=== PATIENT | male | born 1955 | race Caucasian/White ===

== ENCOUNTER 2020-05-16 13:36 | Inpatient (IN) | payer MEDICARE ==
[~2020-05-16] VITALS: Ht 167 cm; Wt 95.8 kg
[~2020-05-16 13:36] MED LIST: MECL25TA56 PO
[2020-05-16] MEDS ORDERED: NS IV 1000 ML 1,000 ML ONE (13:49)
[2020-05-16 14:00] LABS: BASOPHILS % (AUTO) 0 % (0-10); EOSINOPHILS % (AUTO) 0 % (0-10); HEMATOCRIT 53 % (40-54); HEMOGLOBIN 18.2 g/dL (13.3-17.7); LYMPHOCYTES # (AUTO) 2.7 10^3/uL (1.0-4.0); LYMPHOCYTES % (AUTO) 37 % (12-44); MEAN CORPUSCULAR HEMOGLOBIN 28 pg (25-34); MEAN CORPUSCULAR HGB CONC 35 g/dL (32-36); MEAN CORPUSCULAR VOLUME 81 fL (80-99); MEAN PLATELET VOLUME 10.4 fL (9.0-12.2); MONOCYTES # (AUTO) 0.5 10^3/uL (0.0-1.0); MONOCYTES % (AUTO) 7 % (0-12); NEUTROPHILS % (AUTO) 55 % (42-75); PLATELET COUNT 205 10^3/uL (130-400); WHITE BLOOD COUNT 7.2 10^3/uL (4.3-11.0)
[2020-05-16] MEDS ORDERED: ASPIRIN 325 MG (5 GR) TABLET PO ONE (14:00)
[2020-05-16] MEDS ORDERED: NS IV 1000 ML 1,000 ML IV SCH ×2 (14:00→14:30)
[2020-05-16] MEDS ORDERED: PROMETHAZINE/ CODEINE SYRUP 5 ML UDC PO ONE (14:00)
[2020-05-16] MEDS ORDERED: lisINopril 10 MG (PRINIVIL) TABLET PO ONE (14:00)
[2020-05-16 14:14] LABS: ALBUMIN 3.8 GM/DL (3.2-4.5); CHLORIDE 97 MMOL/L (98-107); POTASSIUM 3.9 MMOL/L (3.6-5.0); SODIUM 136 MMOL/L (135-145)
[2020-05-16 14:15] LABS: CALCIUM 8.9 MG/DL (8.5-10.1)
[2020-05-16 14:16] LABS: GLUCOSE 285 MG/DL (70-105)
[2020-05-16 14:17] LABS: TOTAL PROTEIN 7.5 GM/DL (6.4-8.2)
[2020-05-16 14:18] LABS: CARBON DIOXIDE 20 MMOL/L (21-32)
--- NOTE | 2020-05-16 14:18 | ED Respiratory ---
General Chief Complaint: Respiratory Problems Stated Complaint: SOB Nursing Triage Note: ARRIVED VIA EMS FROM HOME WITH SOA AND COUGH X3 DAYS. EMS REPORTS PULSE OX IN THE 80'S AT HOME ROOM AIR. History of Present Illness Date Seen by Provider: May 16, 2020 Time Seen by Provider: 13:40 Initial Comments 64-year-old male presents for cough and shortness of air that is been present for 3 to 4 days. He has not received the Covid vaccine. He does not know of any known exposure to Covid. He did not get an influenza vaccine this year either. He does not have a primary care doctor or seek medical care regularly. He denies any medications. He did try Tylenol last evening with no improvement in his symptoms. He lives with his sister, no one else has similar symptoms. Denies tobacco use. Timing/Duration: getting worse Severity: moderate Prior Episodes/Possible Cause: no prior episodes Associated Symptoms: No chest pain/soreness; cough; No dizziness, No earache, No facial pain, No fever/chills, No headache, No lightheadedness; muscle aches, nasal congestion, nasal drainage, shortness of breath; No sinus infection, No sore throat, No wheezing Allergies and Home Medications Allergies Coded Allergies: NKANo Known Allergies (Unverified Allergy, Mild, 11/05/08) Home Medications Meclizine Hcl 25 Mg Tablet, 1 EACH PO QID PRN Prescribed by: KARYN ORTIZ on 05/22/10 1133 Patient Home Medication List Home Medication List Reviewed: Yes Review of Systems Review of Systems Constitutional: no symptoms reported, see HPI EENTM: see HPI, nose congestion Respiratory: see HPI, cough (non productive), dyspnea on exertion, short of breath; No wheezing Cardiovascular: no symptoms reported, see HPI; No chest pain Gastrointestinal: see HPI; No abdominal pain, No constipation, No diarrhea; loss of appetite; No vomiting Genitourinary: no symptoms reported, see HPI Musculoskeletal: no symptoms reported, see HPI Skin: no symptoms reported, see HPI All Other Systems Reviewed Negative Unless Noted: Yes Past Lmwybhr-Ryakle-Mhaich Hx Past Med/Social Hx: Reviewed Nursing Past Med/Soc Hx Patient Social History Alcohol Use: Denies Use Smoking Status: Never a Smoker Recent Infectious Disease Expo: No Recent Hopitalizations: No Seasonal Allergies Seasonal Allergies: No Past Medical History Surgeries: Yes (hernia repair) Respiratory: No Cardiac: Yes Hypertension Neurological: No Genitourinary: No Gastrointestinal: No Musculoskeletal: No Endocrine: No HEENT: No Cancer: No Psychosocial: No Physical Exam Vital Signs - First Documented 05/16/20 13:51 Temp 36.5 Pulse 104 Resp 18 B/P (MAP) 179/106 (130) Pulse Ox 82 O2 Delivery Nasal Cannula O2 Flow Rate 2.00 Capillary Refill : Less Than 3 Seconds Height: '" Weight: lbs. oz. kg; 27.00 BMI Method: General Appearance: WD/WN, no apparent distress Eyes: Bilateral Eye Normal Inspection, Bilateral Eye PERRL, Bilateral Eye EOMI HEENT: PERRL/EOMI, normal ENT inspection, TMs normal, pharynx normal, other (Oral mucosa pink but dry. ) Neck: non-tender, full range of motion, supple, normal inspection Respiratory: chest non-tender, lungs clear, decreased breath sounds Cardiovascular: normal peripheral pulses, regular rate, rhythm, tachycardia Gastrointestinal: normal bowel sounds, non tender, soft Extremities: normal range of motion, non-tender, normal inspection, other (clubbing to fingers) Neurologic/Psychiatric: no motor/sensory deficits, alert, normal mood/affect, o riented x 3 Skin: normal color, warm/dry Focused Exam Lactate Level 05/16/20 13:45: Lactic Acid Level 3.47*H Lactic Acid Level Laboratory Tests Test 05/16/20 13:45 Lactic Acid Level 3.47 MMOL/L (0.50-2.00) *H Progress/Results/Core Measures Suspected Sepsis Recent Fever Within 48 Hours: No Infection Criteria Present: Suspected New Infection New/Unexplained Altered Menta: No Sepsis Screen: No Definite Risk SIRS Temperature: Pulse: 104 Respiratory Rate: 18 Laboratory Tests 05/16/20 13:45: White Blood Count 7.2 Blood Pressure 179 /106 Mean: 130 05/16/20 13:45: Lactic Acid Level 3.47*H Laboratory Tests 05/16/20 13:45: Creatinine 1.03, INR Comment 0.9, Platelet Count 205, Total Bilirubin 1.0 Results/Orders Lab Results Laboratory Tests Test 05/16/20 13:45 Range/Units White Blood Count 7.2 4.3-11.0 10^3/uL Red Blood Count 6.53 H 4.30-5.52 10^6/uL Hemoglobin 18.2 H 13.3-17.7 g/dL Hematocrit 53 40-54 % Mean Corpuscular Volume 81 80-99 fL Mean Corpuscular Hemoglobin 28 25-34 pg Mean Corpuscular Hemoglobin Concent 35 32-36 g/dL Red Cell Distribution Width 13.2 10.0-14.5 % Platelet Count 205 130-400 10^3/uL Mean Platelet Volume 10.4 9.0-12.2 fL Immature Granulocyte % (Auto) 1 % Neutrophils (%) (Auto) 55 42-75 % Lymphocytes (%) (Auto) 37 12-44 % Monocytes (%) (Auto) 7 0-12 % Eosinophils (%) (Auto) 0 0-10 % Basophils (%) (Auto) 0 0-10 % Neutrophils # (Auto) 4.0 1.8-7.8 10^3/uL Lymphocytes # (Auto) 2.7 1.0-4.0 10^3/uL Monocytes # (Auto) 0.5 0.0-1.0 10^3/uL Eosinophils # (Auto) 0.0 0.0-0.3 10^3/uL Basophils # (Auto) 0.0 0.0-0.1 10^3/uL Immature Granulocyte # (Auto) 0.0 0.0-0.1 10^3/uL Prothrombin Time 12.7 12.2-14.7 SEC INR Comment 0.9 0.8-1.4 Activated Partial Thromboplast Time 27 24-35 SEC D-Dimer 0.68 H 0.00-0.49 UG/ML Sodium Level 136 135-145 MMOL/L Potassium Level 3.9 3.6-5.0 MMOL/L Chloride Level 97 L 98-107 MMOL/L Carbon Dioxide Level 20 L 21-32 MMOL/L Anion Gap 19 H 5-14 MMOL/L Blood Urea Nitrogen 14 7-18 MG/DL Creatinine 1.03 0.60-1.30 MG/DL Estimat Glomerular Filtration Rate > 60 BUN/Creatinine Ratio 14 Glucose Level 285 H 70-105 MG/DL Lactic Acid Level 3.47 *H 0.50-2.00 MMOL/L Calcium Level 8.9 8.5-10.1 MG/DL Corrected Calcium 9.1 8.5-10.1 MG/DL Total Bilirubin 1.0 0.1-1.0 MG/DL Aspartate Amino Transf (AST/SGOT) 34 5-34 U/L Alanine Aminotransferase (ALT/SGPT) 42 0-55 U/L Alkaline Phosphatase 94 40-136 U/L Lactate Dehydrogenase 308 H 125-220 U/L C-Reactive Protein High Sensitivity 12.22 H 0.00-0.50 MG/DL Total Protein 7.5 6.4-8.2 GM/DL Albumin 3.8 3.2-4.5 GM/DL Procalcitonin 0.26 H <0.10 NG/ML Coronavirus 2019 (TASHA) Positive H Negative Micro Results Microbiology 05/16/20 Influenza Types A,B Antigen (JAYLON) - Final, Complete My Orders Orders - THIEN JEFFERS Ns Iv 1000 Ml (Sodium Chloride 0.9%) (05/16/20 13:49) Ed Iv/Invasive Line Start (05/16/20 13:54) Ns Iv 1000 Ml (Sodium Chloride 0.9%) (05/16/20 14:00) Promethazine/ Codeine Syrup (Phenergan W (05/16/20 14:00) Aspirin Tablet (Aspirin Tablet) (05/16/20 14:00) Lisinopril Tablet (Zestril Tablet) (05/16/20 14:00) Ed Iv/Invasive Line Start (05/16/20 14:20) Ns Iv 1000 Ml (Sodium Chloride 0.9%) (05/16/20 14:30) Dexamethasone Injection (Decadron Inje (05/17/20 09:00) Fibrin Degradation Products (05/16/20 14:42) Ceftriaxone For Iv Use (Rocephin For I (05/16/20 15:00) Azithromycin Injection (Zithromax Inject (05/16/20 15:00) Medications Given in ED Current Medications Medications Dose Ordered Sig/Mariam Route Start Time Stop Time Status Last Admin Dose Admin Aspirin 325 mg ONCE ONCE PO 05/16/20 14:00 05/16/20 14:01 DC 05/16/20 14:05 325 MG Lisinopril 10 mg ONCE ONCE PO 05/16/20 14:00 05/16/20 14:01 DC 05/16/20 14:05 10 MG Promethazine HCl/ Codeine 5 ml ONCE ONCE PO 05/16/20 14:00 05/16/20 14:01 DC 05/16/20 14:02 5 ML Vital Signs/I&O 05/16/20 05/16/20 13:51 13:51 Temp 36.5 Pulse 104 Resp 18 B/P (MAP) 179/106 (130) Pulse Ox 82 82 O2 Delivery Nasal Cannula Room Air O2 Flow Rate 2.00 Capillary Refill : Less Than 3 Seconds Blood Pressure Mean: 130 Progress Note : Time: 13:40 Progress Note Patient seen and evaluated, will give normal saline 1 L per IV, labs and chest x-ray. When transferring from cot to bed, SaO2 down to 86 to 88%, quickly recovered to 92 to 94% with O2 at 4 L. 1400 will give aspirin 325 mg orally, Phenergan with codeine for cough 5 mL. Lisinopril 10 mg orally for hypertension. SaO2 94% at 4 L, decreased to 2 L and maintaining. 1430 no further coughing. Covid test positive. Patient notified. He is notifying all contacts, to quarantine. [address] Darby agreed with plans for admission. Will obtain CT of chest without contrast based on chest x-ray and polycythemia. Will cover with azithromycin and Rocephin. Hgb A1c based on elevated glucose and no known history of DM. 1545 no complaints, SaO2 94% on 2L per MI. To CT and then taken to [address] [place] [address]. Diagnostic Imaging Diagonstic Imaging: Xray Plain Films/CT/US/NM/MRI: chest Comments NAME: FRANKI GREENFIEDL [facility] REC#: [id number] PT STATUS: REG ER : 1955 PHYSICIAN: ROLF MCMILLAN MD ADMIT DATE: 05/16/20/ER Signed Date of Exam:05/16/20 CHEST 1 VIEW, AP/PA ONLY EXAMINATION: Chest 1 view HISTORY: Sepsis. COMPARISON: 05/22/2010. FINDINGS: The lung volumes are normal. No focal consolidation is seen. No large pleural effusion or pneumothorax is seen. The cardiomediastinal silhouette is normal in size and contour. No acute osseous abnormality is seen. IMPRESSION: 1. No acute pleuroparenchymal process. Dictated by: Dictated on workstation # [id number] Dict: 05/16/200 Trans: 05/16/20 1428 [facility] [phone] Interpreted by: PEGGY JOHN DO Electronically signed by: PEGGY JOHN DO 05/16/20 1428 Diagonstic Imaging: CT Plain Films/CT/US/NM/MRI: chest Comments NAME: FRANKI GREENFIELD REC#: [id number] PT STATUS: ADM Dennis : 1955 PHYSICIAN: THIEN JEFFERS ADMIT DATE: 05/16/20 Signed Date of Exam:05/16/20 CT CHEST WO EXAMINATION: CT chest without contrast. TECHNIQUE: Multiple contiguous axial images were obtained through the chest without the use of intravenous contrast. All CT scans use one or more of the following dose optimizing techniques: automated exposure control, MA and/or KvP adjustment based on patient size and exam type or iterative reconstruction. HISTORY: Right lower lobe nodule. Shortness of breath and cough for three days. COMPARISON: CT chest on 11/05/2008. FINDINGS: The heart size is within normal limits. No pericardial effusion is present. There is no mediastinal, hilar or axillary lymphadenopathy. Hazy opacities are seen in the mid and lower lungs, bilaterally. Subsegmental atelectasis is seen in the lung bases. No focal consolidation is visualized. No central endobronchial obstructing lesion. No suspicious pulmonary nodule. There is no pleural effusion or pneumothorax. The osseous structures demonstrate no acute abnormalities. Limited views of the upper abdominal structures demonstrate no acute abnormalities. Small hiatal hernia is present. Both adrenal glands are unremarkable. IMPRESSION: 1. Hazy groundglass opacities in the lower lungs, bilaterally, suspicious for viral illness such as Covid. Additional subsegmental atelectasis is seen in the lung bases. No pleural effusion. 2. Small hiatal hernia. Dictated by: Dictated on workstation # [id number] Reviewed: Reviewed by Me, Reviewed/Discussed (Dr. Darby) Departure Impression Primary Impression: Cough Additional Impressions: Dyspnea Qualified Codes: R06.00 - Dyspnea, unspecified COVID-19 Hyperglycemia Hypoxemia Disposition: ADMITTED INPATIENT Condition: Stable Admissions Decision to Admit Reason: Admit from ER (General) Decision to Admit/Date: May 16, 2020 Time/Decision to Admit Time: 14:30 Departure-Patient Inst. Referrals: NO,LOCAL PHYSICIAN (PCP/Family) Primary Care Physician THIEN JEFFERS May 16, 2020 14:18
[2020-05-16 14:20] LABS: ALKALINE PHOSPHATASE 94 U/L (40-136); CREATININE SERUM 1.03 MG/DL (0.60-1.30); GFR ESTIMATED > 60
[2020-05-16 14:21] LABS: BUN/CREATININE RATIO 14
[2020-05-16 14:23] LABS: ALANINE AMINOTRANSFERASE 42 U/L (0-55)
--- NOTE | 2020-05-16 14:23 | Diagnostic Imaging Report ---
EXAMINATION: Chest 1 view HISTORY: Sepsis. COMPARISON: 05/22/2010. FINDINGS: The lung volumes are normal. No focal consolidation is seen. No large pleural effusion or pneumothorax is seen. The cardiomediastinal silhouette is normal in size and contour. No acute osseous abnormality is seen. IMPRESSION: 1. No acute pleuroparenchymal process. Dictated by: Dictated on workstation # [id number]
[2020-05-16 14:42] LABS: INR 0.9 (0.8-1.4); PROTHROMBIN TIME PATIENT 12.7 SEC (12.2-14.7)
[2020-05-16] MEDS ORDERED: AZITHROMYCIN INJECTION 500 MG in NS (IVPB) 250 ML IV ONE (15:00)
[2020-05-16] MEDS ORDERED: cefTRIAXone FOR IV USE 1,000 MG in WATER (STERILE) FOR INJECTION 10 ML IV ONE (15:00)
[2020-05-16] MEDS ORDERED: cefTRIAXone 1,000 MG/2.86 ml vial (IM ONLY) ONE (15:01)
[2020-05-16] MEDS ORDERED: WATER (STERILE) FOR INJECTION 10 ML ONE (15:01)
[2020-05-16] MEDS ORDERED: ONDANSETRON 4 MG/2 ML (SDV) Z0FRAN IV PRN (16:30)
[2020-05-16] MEDS ORDERED: PROMETHAZINE/ CODEINE SYRUP 5 ML UDC PO PRN (16:30)
[2020-05-16] MEDS ORDERED: ACETAMINOPHEN 325 MG TABLET PO PRN (16:30)
[2020-05-16 16:41] VITALS: BP 153/79
[2020-05-16] MEDS: NS IV 1000 ML 1,000 ML IV SCH ×2 (17:02→17:30)
--- NOTE | 2020-05-16 17:13 | Diagnostic Imaging Report ---
EXAMINATION: CT chest without contrast. TECHNIQUE: Multiple contiguous axial images were obtained through the chest without the use of intravenous contrast. All CT scans use one or more of the following dose optimizing techniques: automated exposure control, MA and/or KvP adjustment based on patient size and exam type or iterative reconstruction. HISTORY: Right lower lobe nodule. Shortness of breath and cough for three days. COMPARISON: CT chest on 11/05/2008. FINDINGS: The heart size is within normal limits. No pericardial effusion is present. There is no mediastinal, hilar or axillary lymphadenopathy. Hazy opacities are seen in the mid and lower lungs, bilaterally. Subsegmental atelectasis is seen in the lung bases. No focal consolidation is visualized. No central endobronchial obstructing lesion. No suspicious pulmonary nodule. There is no pleural effusion or pneumothorax. The osseous structures demonstrate no acute abnormalities. Limited views of the upper abdominal structures demonstrate no acute abnormalities. Small hiatal hernia is present. Both adrenal glands are unremarkable. IMPRESSION: 1. Hazy groundglass opacities in the lower lungs, bilaterally, suspicious for viral illness such as Covid. Additional subsegmental atelectasis is seen in the lung bases. No pleural effusion. 2. Small hiatal hernia. Dictated by: Dictated on workstation # [id number]
[2020-05-16] MEDS: ENOXAPARIN 40 MG/0.4 ML (LOVENOX) SYR SC SCH (17:29)
[2020-05-16] MEDS: RT-ALBUTEROL INHALER HFA (VENTOLIN HFA) 18 GM IH SCH ×2 (18:42→22:15)
[2020-05-16 20:34] VITALS: BP 165/79
[2020-05-16] MEDS: inSUlin ASPART (NovoLOG) 1 UNIT/0.01 ML (CHARGE PER UNIT) SC SCH (22:24)
[2020-05-17] VITALS (10 sets, daily range): BP systolic 134–153; BP diastolic 67–77
[2020-05-17] MEDS: RT-ALBUTEROL INHALER HFA (VENTOLIN HFA) 18 GM IH SCH ×6 (02:13→21:38)
[2020-05-17] MEDS: NS IV 1000 ML 1,000 ML IV SCH ×3 (03:04→20:42)
[2020-05-17 05:40] LABS: BASOPHILS % (AUTO) 0 % (0-10); EOSINOPHILS % (AUTO) 0 % (0-10); HEMATOCRIT 43 % (40-54); HEMOGLOBIN 14.7 g/dL (13.3-17.7); LYMPHOCYTES # (AUTO) 0.7 10^3/uL (1.0-4.0); LYMPHOCYTES % (AUTO) 18 % (12-44); MEAN CORPUSCULAR HEMOGLOBIN 28 pg (25-34); MEAN CORPUSCULAR HGB CONC 34 g/dL (32-36); MEAN CORPUSCULAR VOLUME 81 fL (80-99); MEAN PLATELET VOLUME 10.3 fL (9.0-12.2); MONOCYTES # (AUTO) 0.3 10^3/uL (0.0-1.0); MONOCYTES % (AUTO) 7 % (0-12); NEUTROPHILS # (AUTO) 3.1 10^3/uL (1.8-7.8); NEUTROPHILS % (AUTO) 75 % (42-75); PLATELET COUNT 189 10^3/uL (130-400); WHITE BLOOD COUNT 4.1 10^3/uL (4.3-11.0)
[2020-05-17 05:58] LABS: CHLORIDE 106 MMOL/L (98-107); POTASSIUM 3.9 MMOL/L (3.6-5.0); SODIUM 137 MMOL/L (135-145)
[2020-05-17 05:59] LABS: CALCIUM 7.5 MG/DL (8.5-10.1)
[2020-05-17 06:00] LABS: GLUCOSE 264 MG/DL (70-105); TOTAL PROTEIN 5.8 GM/DL (6.4-8.2)
[2020-05-17 06:01] LABS: CARBON DIOXIDE 21 MMOL/L (21-32)
[2020-05-17 06:02] LABS: BILIRUBIN,TOTAL 0.5 MG/DL (0.1-1.0)
[2020-05-17 06:04] LABS: ALKALINE PHOSPHATASE 77 U/L (40-136); CREATININE SERUM 0.87 MG/DL (0.60-1.30); GFR ESTIMATED > 60
[2020-05-17 06:05] LABS: BUN/CREATININE RATIO 15
[2020-05-17 06:07] LABS: ALANINE AMINOTRANSFERASE 33 U/L (0-55)
[2020-05-17] MEDS: inSUlin ASPART (NovoLOG) 1 UNIT/0.01 ML (CHARGE PER UNIT) SC SCH ×3 (06:12→22:33)
[2020-05-17] MEDS ORDERED: AZITHROMYCIN 250 MG/NS 250 ML IVPB IV SCH ×2 (09:00)
[2020-05-17] MEDS: lisINopril 40 MG (PRINIVIL) TABLET PO SCH (09:06)
--- NOTE | 2020-05-17 11:14 | History & Physical-Hospitalist ---
History of Present Illness HPI/Chief Complaint Phillip Perkins is a 64-year-old male with no known past medical history who presented with shortness of breath. He started getting sick about a week ago. He has been having a cough. He denies any fevers or chills. He denies any changes in his sense of taste or smell. He denies any nausea or vomiting. He denies any diarrhea. He reports having some chest pain and with coughing. He does not follow with a doctor. He says he lost a lot of weight recently. He says he has been told that he had high blood pressure before. He has no known history of diabetes. Source: patient Exam Limitations: no limitations Date Seen 05/17/20 Time Seen by a Provider: 10:10 Attending Physician Joshua Leahy MD PCP No,Local Physician Referring Physician Date of Admission May 16, 2020 at 14:56 Home Medications & Allergies Home Medications Reviewed patient Home Medication Reconciliation performed by pharmacy medication reconciliations hearing aid technician and/or nursing. Patients Allergies have been reviewed. Allergies Allergies Coded Allergies NKANo Known Allergies (Unverified Allergy, Mild, 11/05/08) Past Xwppffd-Kazyrf-Oihtwr Hx Past Med/Social Hx: Reviewed Nursing Past Med/Soc Hx Patient Social History Alcohol Use: Denies Use Recreational Drug Use: No Smoking Status: Never a Smoker Recent Foreign Travel: No Contact w/other who traveled: No Recent Hopitalizations: No Recent Infectious Disease Expo: No Seasonal Allergies Seasonal Allergies: No Past Medical History Cardiac: Hypertension Review of Systems Constitutional: malaise EENTM: no symptoms reported Respiratory: cough, short of breath Cardiovascular: chest pain Gastrointestinal: no symptoms reported Genitourinary: no symptoms reported Musculoskeletal: no symptoms reported Skin: no symptoms reported Psychiatric/Neurological: No Symptoms Reported Physical Exam Physical Exam Vital Signs Vital Signs - First Documented 05/16/20 13:51 Temp 36.5 Pulse 104 Resp 18 B/P (MAP) 179/106 (130) Pulse Ox 82 O2 Delivery Nasal Cannula O2 Flow Rate 2.00 Capillary Refill : Less Than 3 Seconds Height, Weight, BMI Height: '" Weight: lbs. oz. kg; 28.72 BMI Method: General Appearance: No Apparent Distress, WD/WN HEENT: PERRL/EOMI, Pharynx Normal Neck: Normal Inspection, Supple Respiratory: Lungs Clear, Normal Breath Sounds, No Respiratory Distress Cardiovascular: Regular Rate, Rhythm, No Edema, No Murmur Gastrointestinal: Normal Bowel Sounds, Non Tender, Soft Extremity: Normal Inspection, Non Tender, No Pedal Edema Neurologic/Psychiatric: Alert, Oriented x3, No Motor/Sensory Deficits, Normal Mood/Affect Skin: Normal Color, Warm/Dry Results Results/Procedures Labs Laboratory Tests 05/16/20 13:45 05/17/20 05:14 Patient resulted labs reviewed. Imaging: Reviewed Imaging Report Assessment/Plan Admission Diagnosis acute respiratory failure due to COVID-19 Admission Status: Inpatient Order (span 2 midnights) Reason for Inpatient Admission: respiratory failure requiring supplemental oxygen Assessment and Plan Acute respiratory failure due to COVID-19 PNA Lactic acidosis COVID TAHSA positive Started on Decadron Chest xray unremarkable CT chest with hazy groundglass opacities, no consolidation or underlying mass Procalcitonin elevated Lactic acid elevated on arrival, repeat normalized Started on Rocephin and Azithromycin Begin Remdesivir Convalescent plasma ordered Continue supplemental oxygen as needed, currently on 4 liters Hyperglycemia A1C pending Sliding scale insulin Add Levemir 10 units daily HTN Begin Lisinopril DVT prophylaxis: Lovenox Diagnosis/Problems Diagnosis/Problems (1) Acute respiratory failure due to COVID-19 (2) PNA (pneumonia) Status: Acute (3) HTN (hypertension) Status: Acute (4) Hyperglycemia Status: Acute (5) Lactic acidosis Status: Acute JOSHUA LEAHY MD May 17, 2020 11:14
[2020-05-17] MEDS ORDERED: REMDESIVIR INJ 200 MG in NS (IVPB) 210 ML IV ONE (12:00)
[2020-05-17] MEDS: guaiFENesin/DM (ROBITUSSIN DM) 10 ML UDC PO PRN ×2 (14:14→20:42)
[2020-05-17] MEDS ORDERED: cefTRIAXone 1,000 MG/SWFI 10 ML IV PUSH IV SCH ×2 (15:00)
[2020-05-17] MEDS: ENOXAPARIN 40 MG/0.4 ML (LOVENOX) SYR SC SCH (16:47)
[2020-05-17] MEDS ORDERED: ALPRAZolam 0.5 MG (XANAX) TAB PO PRN (21:15)
[2020-05-17] MEDS ORDERED: RT-ALBUTEROL INHALER HFA (VENTOLIN HFA) 18 GM IH PRN (21:15)
[2020-05-18] VITALS (19 sets, daily range): BP systolic 124–193; BP diastolic 67–110
[2020-05-18] MEDS: NS IV 1000 ML 1,000 ML IV SCH ×3 (02:07→08:34)
[2020-05-18] MEDS: RT-ALBUTEROL INHALER HFA (VENTOLIN HFA) 18 GM IH SCH ×6 (02:10→22:38)
[2020-05-18] MEDS: inSUlin ASPART (NovoLOG) 1 UNIT/0.01 ML (CHARGE PER UNIT) SC SCH ×3 (05:43→20:03)
[2020-05-18 06:21] LABS: BASOPHILS % (AUTO) 0 % (0-10); EOSINOPHILS % (AUTO) 0 % (0-10); HEMATOCRIT 43 % (40-54); HEMOGLOBIN 14.6 g/dL (13.3-17.7); LYMPHOCYTES % (AUTO) 9 % (12-44); MEAN CORPUSCULAR HEMOGLOBIN 28 pg (25-34); MEAN CORPUSCULAR HGB CONC 34 g/dL (32-36); MEAN CORPUSCULAR VOLUME 81 fL (80-99); MEAN PLATELET VOLUME 10.7 fL (9.0-12.2); MONOCYTES # (AUTO) 0.5 10^3/uL (0.0-1.0); MONOCYTES % (AUTO) 5 % (0-12); NEUTROPHILS # (AUTO) 9.3 10^3/uL (1.8-7.8); NEUTROPHILS % (AUTO) 86 % (42-75); PLATELET COUNT 238 10^3/uL (130-400); WHITE BLOOD COUNT 10.8 10^3/uL (4.3-11.0)
[2020-05-18 06:30] LABS: ALBUMIN 3.1 GM/DL (3.2-4.5)
[2020-05-18 06:31] LABS: CHLORIDE 112 MMOL/L (98-107); POTASSIUM 3.4 MMOL/L (3.6-5.0); SODIUM 141 MMOL/L (135-145)
[2020-05-18 06:32] LABS: CALCIUM 7.8 MG/DL (8.5-10.1)
[2020-05-18 06:33] LABS: GLUCOSE 172 MG/DL (70-105)
[2020-05-18 06:34] LABS: CARBON DIOXIDE 17 MMOL/L (21-32)
[2020-05-18 06:35] LABS: BILIRUBIN,TOTAL 0.5 MG/DL (0.1-1.0)
[2020-05-18 06:36] LABS: ALKALINE PHOSPHATASE 81 U/L (40-136)
[2020-05-18 06:37] LABS: CREATININE SERUM 0.78 MG/DL (0.60-1.30); GFR ESTIMATED > 60
[2020-05-18 06:38] LABS: BUN/CREATININE RATIO 17
[2020-05-18 06:40] LABS: ALANINE AMINOTRANSFERASE 39 U/L (0-55)
[2020-05-18] MEDS: lisINopril 40 MG (PRINIVIL) TABLET PO SCH (08:33)
[2020-05-18] MEDS: AZITHROMYCIN 250 MG TAB (ZITHROMAX) PO SCH (08:33)
--- NOTE | 2020-05-18 10:59 | Progress Note - Hospitalist ---
Subjective HPI/CC On Admission Date Seen by Provider: May 18, 2020 Time Seen by Provider: 10:53 Phillip Perkins is a 64-year-old male with no known past medical history who presented with shortness of breath. He started getting sick about a week ago. He has been having a cough. He denies any fevers or chills. He denies any changes in his sense of taste or smell. He denies any nausea or vomiting. He denies any diarrhea. He reports having some chest pain and with coughing. He does not follow with a doctor. He says he lost a lot of weight recently. He says he has been told that he had high blood pressure before. He has no known history of diabetes. Subjective/Events-last exam Pt reports feeling like he is going to and wants to go home. He states his sister will help take care of him. We called his sister while I was in the room and she states she's currently getting tested for COVID and can't care for him. She encouraged him to continue with current care. Pt asks me if he is going to regardless and I informed him that we don't know at this time but that he is very ill though his is not imminent. He requests time to continue talking with his family. I spoke with RN after my visit and she states the family called her because he texted his family telling them he was not going to make it and saying goodbyes. Focused Exam Lactate Level 05/16/20 13:45: Lactic Acid Level 3.47*H 05/16/20 17:55: Lactic Acid Level 1.47 Objective Exam Vital Signs Vital Signs Date Time Temp Pulse Resp B/P (MAP) Pulse Ox O2 Delivery O2 Flow Rate FiO2 05/18/20 08:01 90 Vapotherm 25.00 80 05/18/20 08:00 36.9 88 20 146/67 (93) Capillary Refill : Less Than 3 Seconds General Appearance: No Apparent Distress, Anxious Respiratory: No Accessory Muscle Use; No Crackles; Decreased Breath Sounds, Other (on Vapotherm) Cardiovascular: Regular Rate, Rhythm, No Murmur Gastrointestinal: Normal Bowel Sounds, Non Tender, Soft Neurologic/Psychiatric: Alert, Oriented x3 Results/Procedures Lab Laboratory Tests 05/18/20 05:50 Patient resulted labs reviewed. Imaging: Reviewed Imaging Report Assessment/Plan Assessment and Plan Assess & Plan/Chief Complaint Acute respiratory failure due to COVID-19 PNA Lactic acidosis COVID TASHA positive Continue Decadron Repeat CXR, get ABG and BNP DC IVF CT chest with hazy groundglass opacities, no consolidation or underlying mass Continue Rocephin and Azithromycin Continue Remdesivir but DC if transfers to the ICU Convalescent plasma given Had increase oxygen need from 4lpm last night to 27lpm at 80% on Vapotherm while I was at bedside Discussed with Dr Paige in anticipation that he will need ICU care by this afternoon Hyperglycemia A1C pending Sliding scale insulin Levemir 10 units daily HTN Lisinopril DVT prophylaxis: Lovenox CARMITA GARCIA MD May 18, 2020 10:59
[2020-05-18 11:32] LABS: ABG BASE EXCESS -5.2 MMOL/L (-2.5-2.5); ABG OXYGEN SATURATION 97 % (94-100); ABG PCO2 34 MMHG (35-45); ABG PH 7.37 (7.37-7.43); ABG PO2 87 MMHG (79-93); ABG TCO2 20.1 MMOL/L (21.0-31.0)
[2020-05-18 11:34] LABS: ALLENS TEST YES-POS; INSPIRED O2 60%; PATIENT TEMP 37.2; VENTILATOR NO
--- NOTE | 2020-05-18 11:48 | Diagnostic Imaging Report ---
Indication: COVID 19 positive and hypoxia. Time of exam: 11:15 AM Correlation is made prior chest from 05/16/2020. Heart size normal. Patient has bilateral pulmonary infiltrates perihilar regions and both bases consistent with pneumonia. There is no effusion or pneumothorax Impression: Bilateral infiltrates consistent with pneumonia. These have increased since examination 2 days earlier. Dictated by: Dictated on workstation # [id number]
[2020-05-18] MEDS ORDERED: REMDESIVIR INJ 100 MG in NS (IVPB) 230 ML IV SCH (12:00)
[2020-05-18] MEDS ORDERED: KCL 20 MEQ TAB (K-DUR) PO NR (12:15)
[2020-05-18] MEDS ORDERED: FUROSEMIDE 40 MG/4 ML INJ (LASIX) IVP NR (12:15)
--- NOTE | 2020-05-18 13:38 | Pulmonary Consultation ---
History of Present Illness History of Present Illness Date Seen by Provider: May 18, 2020 Time Seen by Provider: 13:33 Date of Admission Allergies and Home Medications Allergies Coded Allergies: NKANo Known Allergies (Unverified Allergy, Mild, 11/05/08) Home Medications No Active Prescriptions or Reported Meds Past Cmtovrd-Ziexja-Xmvohi Hx Past Med/Social Hx: Reviewed Nursing Past Med/Soc Hx Patient Social History Alcohol Use: Denies Use Smoking Status: Never a Smoker Recent Infectious Disease Expo: No Recent Hopitalizations: No Have you traveled recently?: No Alcohol Use?: Yes Seasonal Allergies Seasonal Allergies: No Past Medical History Surgeries: Yes (hernia repair) Respiratory: No Cardiac: Yes Hypertension Neurological: No Genitourinary: No Gastrointestinal: No Musculoskeletal: No Endocrine: No HEENT: No Cancer: No Psychosocial: No Review of Systems Time Seen by Provider: 13:54 Sepsis Event Evaluation Height, Weight, BMI Height: '" Weight: lbs. oz. kg; 28.72 BMI Method: Exam Exam Vital Signs Date Time Temp Pulse Resp B/P (MAP) Pulse Ox O2 Delivery O2 Flow Rate FiO2 05/18/20 13:00 87 188/97 (127) 87 Vapotherm 40.00 100.00 05/18/20 12:22 85 05/18/20 11:52 37.2 87 22 161/85 (110) Vapotherm 40.00 100.00 05/18/20 11:00 94 Vapotherm 40.00 90 05/18/20 08:01 90 Vapotherm 25.00 80 05/18/20 08:00 90 Vapotherm 27.00 05/18/20 08:00 36.9 88 20 146/67 (93) 90 Vapotherm 25.00 60.00 05/18/20 06:42 74 05/18/20 03:20 36.6 87 20 161/76 (104) 90 Vapotherm 25.00 60.00 05/18/20 02:10 91 Vapotherm 25.00 60 05/18/20 01:00 72 05/18/20 00:26 36.4 76 20 159/74 (102) 95 High Flow N/C 8.00 05/17/20 22:03 89 High Flow N/C 7.00 05/17/20 21:38 93 High Flow N/C 8.00 05/17/20 20:45 36.5 83 20 150/67 (94) 93 High Flow N/C 8.00 05/17/20 20:38 36.7 75 92 05/17/20 19:59 Nasal Cannula 4.00 05/17/20 19:00 105 05/17/20 18:31 92 Nasal Cannula 4.00 05/17/20 16:47 36.7 76 20 152/72 93 Nasal Cannula 05/17/20 16:00 36.7 76 20 152/72 (98) 93 Nasal Cannula 4.00 05/17/20 14:45 93 Nasal Cannula 3.00 05/17/20 14:37 36.6 82 20 142/67 92 Nasal Cannula 4.00 05/17/20 14:22 36.5 84 20 151/70 92 Nasal Cannula 4.00 I & O 05/18/20 07:00 Intake Total 4080 ml Balance 4080 ml Height & Weight Height: '" Weight: lbs. oz. kg; 28.72 BMI Method: General Appearance: No Apparent Distress, Anxious HEENT: PERRL/EOMI, Pharynx Normal Neck: Normal Inspection, Supple Respiratory: No Accessory Muscle Use; No Crackles; Decreased Breath Sounds, Other (on Vapotherm) Cardiovascular: Regular Rate, Rhythm, No Murmur Capillary Refill: Less Than 3 Seconds Gastrointestinal: normal bowel sounds, non tender, soft Extremity: Normal Inspection, Non Tender, No Pedal Edema Neurologic/Psychiatric: Alert, Oriented x3 Skin: Normal Color, Warm/Dry Results Lab Laboratory Tests 05/16/20 13:45 05/17/20 05:14 05/18/20 05:50 Assessment/Plan Assessment/Plan Acute worsening respiratory failure due to COVID-19 -BiPAP -Start precedex gtt -Morphine PRN -Oxygen -Give 80mg of Lasix -80meq of KCL -Labs, and CXR reviewed -CXR is worse. -Continue to monito PNA Metabolic acidosis -Lactic acid repeat is normal Hyperglycemia A1C pending Sliding scale insulin Levemir 10 units daily HTN Lisinopril DVT prophylaxis: BERNARDO Camara DO May 18, 2020 13:38
[2020-05-18] MEDS: NS IV 500 ML 500 ML IV SCH (13:50)
[2020-05-18] MEDS: POTASSIUM CL 10MEQ/50ML IVPB 50 ML IV SCH ×3 (13:50→14:38)
[2020-05-18] MEDS ORDERED: DexMEDEtomidine PRE MIX 100 ML IV SCH (14:00)
[2020-05-18] MEDS ORDERED: cefTRIAXone 1,000 MG/SWFI 10 ML IV PUSH IV SCH ×2 (14:00)
[2020-05-18] MEDS ORDERED: morphine INJ 4 MG/ML 1 ML (VIAL/SYRINGE) IVP PRN (14:00)
[2020-05-18] MEDS ORDERED: DexMEDEtomidine 250 ML DRIP 250 ML IV ONE (14:07)
[2020-05-18] MEDS ORDERED: WATER (STERILE) FOR INJECTION 10 ML ONE (14:09)
[2020-05-18] MEDS ORDERED: cefTRIAXone 1,000 MG IV (ROCEPHIN) VIAL ONE (14:09)
[2020-05-18] MEDS: cefTRIAXone 1,000 MG/SWFI 10 ML IV PUSH IV SCH ×2 (14:34)
[2020-05-18 14:36] LABS: BILIRUBIN,URINE NEGATIVE (NEGATIVE); CLARITY,URINE CLEAR; GLUCOSE, URINE (UA) TRACE (NEGATIVE); KETONES,URINE NEGATIVE (NEGATIVE); LEUKOCYTE ESTERASE ,URINE TRACE (NEGATIVE); NITRITE,URINE NEGATIVE (NEGATIVE); PROTEIN,URINE NEGATIVE (NEGATIVE)
[2020-05-18 14:48] LABS: BACTERIA,URINE NEGATIVE /HPF; COLOR,URINE YELLOW
[2020-05-18] MEDS: ENOXAPARIN 40 MG/0.4 ML (LOVENOX) SYR SC SCH (17:54)
[2020-05-19] VITALS (26 sets, daily range): BP systolic 93–182; BP diastolic 57–114
[2020-05-19] MEDS: RT-ALBUTEROL INHALER HFA (VENTOLIN HFA) 18 GM IH SCH ×6 (02:34→21:46)
[2020-05-19 02:49] LABS: ABG BASE EXCESS 0.6 MMOL/L (-2.5-2.5); ABG OXYGEN SATURATION 94 % (94-100); ABG PCO2 35 MMHG (35-45); ABG PH 7.45 (7.37-7.43); ABG PO2 69 MMHG (79-93); ABG TCO2 25.3 MMOL/L (21.0-31.0)
[2020-05-19 02:56] LABS: ALLENS TEST YES-POS; INSPIRED O2 80%; PATIENT TEMP 36.7; VENTILATOR NO
[2020-05-19 04:01] LABS: BASOPHILS % (AUTO) 0 % (0-10); EOSINOPHILS % (AUTO) 0 % (0-10); HEMATOCRIT 45 % (40-54); HEMOGLOBIN 15.3 g/dL (13.3-17.7); LYMPHOCYTES # (AUTO) 0.7 10^3/uL (1.0-4.0); LYMPHOCYTES % (AUTO) 8 % (12-44); MEAN CORPUSCULAR HEMOGLOBIN 28 pg (25-34); MEAN CORPUSCULAR HGB CONC 34 g/dL (32-36); MEAN CORPUSCULAR VOLUME 81 fL (80-99); MEAN PLATELET VOLUME 10.7 fL (9.0-12.2); MONOCYTES # (AUTO) 0.4 10^3/uL (0.0-1.0); MONOCYTES % (AUTO) 4 % (0-12); NEUTROPHILS # (AUTO) 8.3 10^3/uL (1.8-7.8); NEUTROPHILS % (AUTO) 87 % (42-75); PLATELET COUNT 228 10^3/uL (130-400); WHITE BLOOD COUNT 9.6 10^3/uL (4.3-11.0)
[2020-05-19 04:22] LABS: CHLORIDE 109 MMOL/L (98-107); POTASSIUM 4.2 MMOL/L (3.6-5.0); SODIUM 140 MMOL/L (135-145)
[2020-05-19 04:23] LABS: CALCIUM 7.9 MG/DL (8.5-10.1)
[2020-05-19 04:24] LABS: GLUCOSE 205 MG/DL (70-105)
[2020-05-19 04:25] LABS: CARBON DIOXIDE 21 MMOL/L (21-32)
[2020-05-19 04:27] LABS: PHOSPHORUS 2.8 MG/DL (2.3-4.7)
[2020-05-19 04:28] LABS: GFR ESTIMATED > 60
[2020-05-19 04:29] LABS: BUN/CREATININE RATIO 24; MAGNESIUM 2.1 MG/DL (1.6-2.4)
[2020-05-19] MEDS ORDERED: FUROSEMIDE 40 MG/4 ML INJ (LASIX) IVP ONE (05:15)
--- NOTE | 2020-05-19 05:17 | Pulmonary Progress Note ---
Subjective Time Seen by a Provider: 05:13 Subjective/Events-last exam Pt has persistent worsening respiratory failure. Sepsis Event Evaluation Height, Weight, BMI Height: '" Weight: lbs. oz. kg; 28.72 BMI Method: Focused Exam Lactate Level 05/16/20 13:45: Lactic Acid Level 3.47*H 05/16/20 17:55: Lactic Acid Level 1.47 05/18/20 11:20: Lactic Acid Level 1.96 Exam Exam Vital Signs Date Time Temp Pulse Resp B/P (MAP) Pulse Ox O2 Delivery O2 Flow Rate FiO2 05/19/20 04:19 62 40 161/88 (112) 94 NIV Bilevel 80.00 05/19/20 03:43 96 NIV Bilevel 80 05/19/20 03:12 71 11 95 NIV Bilevel 80.00 05/19/20 03:00 73 21 154/91 (112) 95 NIV Bilevel 70.00 05/19/20 02:48 74 18 95 NIV Bilevel 70.00 05/19/20 02:35 71 31 97 80.00 05/19/20 02:09 36.7 05/19/20 02:00 57 25 126/68 (87) 93 NIV Bilevel 80.00 05/19/20 01:00 58 25 123/61 (81) 91 NIV Bilevel 80.00 05/19/20 01:00 61 05/19/20 00:00 57 122/79 (93) 96 NIV Bilevel 80.00 05/19/20 00:00 96 NIV Bilevel 80 05/18/20 23:20 36.2 05/18/20 23:00 55 131/68 (89) 96 NIV Bilevel 80.00 05/18/20 22:42 NIV Bilevel 80.00 05/18/20 22:38 56 42 98 90.00 05/18/20 22:00 79 124/69 (87) 93 NIV Bilevel 90.00 05/18/20 21:00 84 33 136/76 (96) 98 NIV Bilevel 90.00 05/18/20 20:00 90 21 146/79 (101) 99 NIV Bilevel 90.00 05/18/20 20:00 95 NIV Bilevel 90 05/18/20 19:44 NIV Bilevel 90.00 05/18/20 19:00 71 16 143/77 (99) 91 NIV Bilevel 80.00 05/18/20 19:00 NIV Bilevel 80.00 05/18/20 19:00 76 05/18/20 18:52 36.4 05/18/20 18:48 75 36 98 90.00 05/18/20 18:43 99 NIV Bilevel 40.00 90 05/18/20 18:00 71 25 158/79 (105) 99 Vapotherm 40.00 100.00 05/18/20 17:00 75 33 153/83 (106) 98 Vapotherm 40.00 100.00 05/18/20 16:00 93 49 141/76 (97) 92 Vapotherm 40.00 100.00 05/18/20 15:52 36.5 05/18/20 15:00 70 133/103 (113) 90 Vapotherm 40.00 100.00 05/18/20 14:28 37.2 92 25 176/91 94 NIV/Bilevel 90.00 05/18/20 14:00 92 176/91 (119) 94 Vapotherm 40.00 100.00 05/18/20 13:43 37.2 87 95 60 05/18/20 13:32 87 25 95 60.00 05/18/20 13:00 87 188/97 (127) 87 Vapotherm 40.00 100.00 05/18/20 12:22 85 05/18/20 12:00 100 Vapotherm 40.00 05/18/20 11:52 37.2 87 22 161/85 (110) Vapotherm 40.00 100.00 05/18/20 11:00 94 Vapotherm 40.00 90 05/18/20 08:01 90 Vapotherm 25.00 80 05/18/20 08:00 90 Vapotherm 27.00 05/18/20 08:00 36.9 88 20 146/67 (93) 90 Vapotherm 25.00 60.00 05/18/20 06:42 74 l I & O 05/19/20 06:59 Intake Total 570 ml Output Total 3950 ml Balance -3380 ml Height & Weight Height: '" Weight: lbs. oz. kg; 28.72 BMI Method: General Appearance: No Apparent Distress, Anxious HEENT: PERRL/EOMI, Pharynx Normal Neck: Normal Inspection, Supple Respiratory: No Accessory Muscle Use; No Crackles; Decreased Breath Sounds, Other (on Vapotherm) Cardiovascular: Regular Rate, Rhythm, No Murmur Capillary Refill: Less Than 3 Seconds Gastrointestinal: normal bowel sounds, non tender, soft Extremity: Normal Inspection, Non Tender, No Pedal Edema Neurologic/Psychiatric: Alert, Oriented x3 Skin: Normal Color, Warm/Dry Results Lab Laboratory Tests 05/17/20 05:14 05/18/20 05:50 05/19/20 03:45 Assessment/Plan Assessment/Plan Acute worsening respiratory failure due to COVID-19 with ARDS -Pt will most likely need intubation -BiPAP -Start precedex gtt -Morphine PRN -Oxygen -s/p 80mg of Lasix yesterday - pt had 2500ml of UO -Still requiring 80% Fi02 on BIPAP -Labs, and CXR reviewed PNA Metabolic acidosis -Lactic acid repeat is normal Hyperglycemia A1C pending Sliding scale insulin Levemir 10 units daily HTN Lisinopril DVT prophylaxis: BERNARDO Camara DO May 19, 2020 05:17
[2020-05-19] MEDS: KCL 20 MEQ TAB (K-DUR) PO SCH (05:21)
[2020-05-19] MEDS: NS IV 500 ML 500 ML IV SCH ×2 (05:21→22:12)
[2020-05-19] MEDS: POTASSIUM CL 10MEQ/50ML IVPB 50 ML IV SCH (05:21)
[2020-05-19] MEDS: MAGNESIUM 1 GM/100 ML IVPB 100 ML IV SCH (05:21)
--- NOTE | 2020-05-19 05:58 | Diagnostic Imaging Report ---
CLINICAL INDICATION: Patient is Covid positive with hypoxia. EXAM: Portable chest x-ray upright view. COMPARISONS: Chest x-ray dated 05/18/2020. FINDINGS: There is interval slight improved aeration of the right perihilar region and left lung base region. Otherwise bilateral lung infiltrates are again noted. There is no pleural effusion or pneumothorax. Pulmonary vasculature and cardiac silhouette is within normal limits. The remainder of this exam shows no significant interval change compared to the prior study of comparison. IMPRESSION: There are bilateral lung infiltrates which have slightly improved compared to the prior study. Dictated by: Dictated on workstation # [id number]
[2020-05-19] MEDS: inSUlin ASPART (NovoLOG) 1 UNIT/0.01 ML (CHARGE PER UNIT) SC SCH ×4 (06:20→21:11)
[2020-05-19] MEDS: ENOXAPARIN 80 MG/0.8 ML (LOVENOX) SYR SC SCH ×2 (08:49→21:10)
[2020-05-19] MEDS: AZITHROMYCIN 250 MG TAB (ZITHROMAX) PO SCH (08:49)
[2020-05-19] MEDS: lisINopril 40 MG (PRINIVIL) TABLET PO SCH (08:49)
[2020-05-19] MEDS: cefTRIAXone 1,000 MG/SWFI 10 ML IV PUSH IV SCH ×2 (16:30)
[2020-05-19] MEDS: DexMEDEtomidine 1,000 MCG/250 ML IV SCH (22:12)
[2020-05-20] VITALS (25 sets, daily range): BP systolic 86–165; BP diastolic 50–99
[2020-05-20] MEDS: RT-ALBUTEROL INHALER HFA (VENTOLIN HFA) 18 GM IH SCH ×6 (02:25→21:54)
[2020-05-20 02:44] LABS: ABG BASE EXCESS 2.8 MMOL/L (-2.5-2.5); ABG OXYGEN SATURATION 92 % (94-100); ABG PCO2 37 MMHG (35-45); ABG PH 7.46 (7.37-7.43); ABG PO2 61 MMHG (79-93); ABG TCO2 27.7 MMOL/L (21.0-31.0)
[2020-05-20 02:49] LABS: ALLENS TEST YES-POS; INSPIRED O2 70%; PATIENT TEMP 36.3; VENTILATOR NO
[2020-05-20 04:13] LABS: BASOPHILS % (AUTO) 0 % (0-10); EOSINOPHILS % (AUTO) 0 % (0-10); HEMATOCRIT 44 % (40-54); LYMPHOCYTES # (AUTO) 0.7 10^3/uL (1.0-4.0); LYMPHOCYTES % (AUTO) 7 % (12-44); MEAN CORPUSCULAR HEMOGLOBIN 28 pg (25-34); MEAN CORPUSCULAR HGB CONC 35 g/dL (32-36); MEAN CORPUSCULAR VOLUME 80 fL (80-99); MEAN PLATELET VOLUME 10.9 fL (9.0-12.2); MONOCYTES # (AUTO) 0.4 10^3/uL (0.0-1.0); MONOCYTES % (AUTO) 4 % (0-12); NEUTROPHILS # (AUTO) 8.2 10^3/uL (1.8-7.8); NEUTROPHILS % (AUTO) 88 % (42-75); PLATELET COUNT 248 10^3/uL (130-400); WHITE BLOOD COUNT 9.3 10^3/uL (4.3-11.0)
[2020-05-20 04:23] LABS: CHLORIDE 106 MMOL/L (98-107); POTASSIUM 3.9 MMOL/L (3.6-5.0); SODIUM 139 MMOL/L (135-145)
[2020-05-20 04:25] LABS: GLUCOSE 229 MG/DL (70-105)
[2020-05-20 04:26] LABS: CARBON DIOXIDE 24 MMOL/L (21-32)
[2020-05-20 04:29] LABS: CREATININE SERUM 0.78 MG/DL (0.60-1.30); GFR ESTIMATED > 60; PHOSPHORUS 3.2 MG/DL (2.3-4.7)
[2020-05-20 04:30] LABS: BUN/CREATININE RATIO 29
[2020-05-20 04:31] LABS: MAGNESIUM 2.2 MG/DL (1.6-2.4)
[2020-05-20] MEDS: KCL 20 MEQ TAB (K-DUR) PO SCH (04:35)
[2020-05-20] MEDS: POTASSIUM CL 10MEQ/50ML IVPB 50 ML IV SCH ×5 (04:35→12:12)
[2020-05-20] MEDS: MAGNESIUM 1 GM/100 ML IVPB 100 ML IV SCH (04:35)
--- NOTE | 2020-05-20 06:02 | Pulmonary Progress Note ---
Subjective Time Seen by a Provider: 05:59 Subjective/Events-last exam Pt is still requiring BiPAP. Sepsis Event Evaluation Height, Weight, BMI Height: '" Weight: lbs. oz. kg; 28.72 BMI Method: Focused Exam Lactate Level 05/18/20 11:20: Lactic Acid Level 1.96 Exam Exam Vital Signs Date Time Temp Pulse Resp B/P (MAP) Pulse Ox O2 Delivery O2 Flow Rate FiO2 05/20/20 05:00 54 20 141/75 (97) 89 NIV Bilevel 80.00 05/20/20 04:00 62 12 132/74 (93) 92 NIV Bilevel 80.00 05/20/20 03:31 36.6 05/20/20 03:11 NIV Bilevel 80.00 05/20/20 03:00 64 25 127/73 (97) 89 NIV Bilevel 80.00 05/20/20 02:25 32 91 70.00 05/20/20 02:00 64 123/64 (89) 97 NIV Bilevel 70.00 05/20/20 01:00 82 05/20/20 01:00 82 33 109/66 (80) 96 NIV Bilevel 70.00 05/20/20 00:00 96 27 86/50 (63) 92 NIV Bilevel 70.00 05/19/20 23:09 104 30 93/57 (69) 94 NIV Bilevel 70.00 05/19/20 22:12 120 146/79 05/19/20 22:00 154 27 146/69 (97) 98 NIV Bilevel 70.00 05/19/20 21:46 32 98 70.00 05/19/20 21:00 90 22 171/86 (129) 86 Vapotherm 40.00 90.00 05/19/20 20:05 37.0 Vapotherm 40.00 90.00 05/19/20 20:00 96 35 136/114 (119) 91 Vapotherm 40.00 90.00 05/19/20 20:00 96 Vapotherm 40.00 90 05/19/20 19:00 98 05/19/20 19:00 98 12 176/86 (110) 94 Vapotherm 40.00 90.00 05/19/20 18:05 97 Vapotherm 40.00 100 05/19/20 18:00 101 20 165/100 (121) 94 Vapotherm 40.00 90.00 05/19/20 17:00 84 20 182/101 (128) 94 Vapotherm 40.00 90.00 05/19/20 16:31 37.6 05/19/20 16:00 94 8 171/102 (125) 97 Vapotherm 40.00 90.00 05/19/20 15:07 94 Vapotherm 40.00 100 05/19/20 15:00 97 18 155/99 (117) 96 Vapotherm 40.00 90.00 05/19/20 14:00 92 18 164/93 (116) 94 Vapotherm 40.00 90.00 05/19/20 13:00 80 20 151/84 (106) 96 Vapotherm 40.00 90.00 05/19/20 12:47 96 05/19/20 12:00 85 19 161/85 (110) 93 Vapotherm 40.00 90.00 05/19/20 11:13 Vapotherm 40.00 90.00 05/19/20 11:13 36.7 96 12 167/99 (121) 92 Vapotherm 40.00 90.00 05/19/20 11:05 96 Vapotherm 40.00 100 05/19/20 10:00 74 7 150/90 (110) 98 Vapotherm 40.00 100.00 05/19/20 08:46 36.0 73 12 151/98 (115) 96 Vapotherm 40.00 100.00 05/19/20 08:45 96 Vapotherm 100 05/19/20 08:00 64 156/95 (115) 96 Vapotherm 40.00 100.00 05/19/20 07:22 Vapotherm 40.00 100.00 05/19/20 07:05 95 Vapotherm 40.00 100 05/19/20 07:00 70 21 166/106 (126) 97 NIV Bilevel 80.00 05/19/20 06:36 61 05/19/20 06:00 58 38 159/89 (112) 94 NIV Bilevel 80.00 I & O 05/20/20 07:00 Intake Total 744 ml Output Total 2825 ml Balance -2081 ml Height & Weight Height: '" Weight: lbs. oz. kg; 28.72 BMI Method: General Appearance: No Apparent Distress, Anxious HEENT: PERRL/EOMI, Pharynx Normal Neck: Normal Inspection, Supple Respiratory: No Accessory Muscle Use; No Crackles; Decreased Breath Sounds, Other (on Vapotherm) Cardiovascular: Regular Rate, Rhythm, No Murmur Capillary Refill: Less Than 3 Seconds Gastrointestinal: normal bowel sounds, non tender, soft Extremity: Normal Inspection, Non Tender, No Pedal Edema Neurologic/Psychiatric: Alert, Oriented x3 Skin: Normal Color, Warm/Dry Results Lab Laboratory Tests 05/19/20 03:45 05/20/20 03:55 Assessment/Plan Assessment/Plan Acute worsening respiratory failure due to COVID-19 with ARDS -Pt will most likely need intubation -BiPAP -precedex gtt -Morphine PRN -Oxygen -Will give 2mg of Bumex x 1 -Labs, and CXR reviewed PNA Metabolic acidosis -Lactic acid repeat is normal Hyperglycemia A1C pending Sliding scale insulin Levemir 10 units daily HTN Lisinopril DVT prophylaxis: Lovenox BERNARDO MOSS DO May 20, 2020 06:02
[2020-05-20] MEDS ORDERED: BUMETANIDE 1 MG/4 ML (BUMEX) VIAL IV ONE (06:05)
[2020-05-20] MEDS: inSUlin ASPART (NovoLOG) 1 UNIT/0.01 ML (CHARGE PER UNIT) SC SCH ×4 (06:19→20:37)
--- NOTE | 2020-05-20 07:48 | Diagnostic Imaging Report ---
Indication: Positive for COVID Portable chest shows normal heart size and vascularity. Some minimal bilateral midlung infiltrates which have shown improvement since 05/19/2020. There is no effusion or pneumothorax. IMPRESSION: Improving infiltrates. Report was faxed to [facility] Infection Control by lisandro at 7:47AM. Dictated by: Dictated on workstation # [id number]
[2020-05-20] MEDS: AZITHROMYCIN 250 MG TAB (ZITHROMAX) PO SCH (08:27)
[2020-05-20] MEDS: ENOXAPARIN 80 MG/0.8 ML (LOVENOX) SYR SC SCH ×2 (08:33→20:37)
[2020-05-20] MEDS: NS IV 500 ML 500 ML IV SCH (14:10)
[2020-05-20] MEDS: cefTRIAXone 1,000 MG/SWFI 10 ML IV PUSH IV SCH ×2 (14:36)
[2020-05-21] VITALS (24 sets, daily range): BP systolic 129–172; BP diastolic 63–100
[2020-05-21] MEDS: RT-ALBUTEROL INHALER HFA (VENTOLIN HFA) 18 GM IH SCH ×6 (02:13→22:12)
--- NOTE | 2020-05-21 04:59 | Diagnostic Imaging Report ---
Indication: Lower respiratory infection Portable chest 3:13 AM Heart size and pulmonary vascularity are normal. There are some patchy alveolar infiltrates in both lungs. There are no effusions. IMPRESSION: Scattered alveolar infiltrates consistent with Covid pneumonia Dictated by: Dictated on workstation # [id number]
[2020-05-21 05:17] LABS: BASOPHILS % (AUTO) 0 % (0-10); EOSINOPHILS % (AUTO) 0 % (0-10); HEMATOCRIT 43 % (40-54); LYMPHOCYTES # (AUTO) 0.7 10^3/uL (1.0-4.0); LYMPHOCYTES % (AUTO) 7 % (12-44); MEAN CORPUSCULAR HEMOGLOBIN 28 pg (25-34); MEAN CORPUSCULAR HGB CONC 35 g/dL (32-36); MEAN CORPUSCULAR VOLUME 81 fL (80-99); MEAN PLATELET VOLUME 10.2 fL (9.0-12.2); MONOCYTES # (AUTO) 0.6 10^3/uL (0.0-1.0); MONOCYTES % (AUTO) 5 % (0-12); NEUTROPHILS % (AUTO) 87 % (42-75); PLATELET COUNT 269 10^3/uL (130-400); WHITE BLOOD COUNT 10.3 10^3/uL (4.3-11.0)
[2020-05-21 05:30] LABS: CHLORIDE 106 MMOL/L (98-107); POTASSIUM 4.1 MMOL/L (3.6-5.0); SODIUM 140 MMOL/L (135-145)
[2020-05-21] MEDS ORDERED: FLUCONAZOLE 200 MG/100 ML 100 ML IV ONE (05:30)
[2020-05-21 05:31] LABS: CALCIUM 7.9 MG/DL (8.5-10.1)
[2020-05-21 05:32] LABS: GLUCOSE 169 MG/DL (70-105)
[2020-05-21 05:33] LABS: CARBON DIOXIDE 25 MMOL/L (21-32)
[2020-05-21 05:35] LABS: PHOSPHORUS 3.4 MG/DL (2.3-4.7)
[2020-05-21 05:36] LABS: CREATININE SERUM 0.72 MG/DL (0.60-1.30); GFR ESTIMATED > 60
[2020-05-21 05:37] LABS: BUN/CREATININE RATIO 32
--- NOTE | 2020-05-21 05:37 | Pulmonary Progress Note ---
Subjective Time Seen by a Provider: 05:36 Subjective/Events-last exam Currently requiring BiPAP Sepsis Event Evaluation Height, Weight, BMI Height: '" Weight: lbs. oz. kg; 28.72 BMI Method: Focused Exam Lactate Level 05/18/20 11:20: Lactic Acid Level 1.96 Exam Exam Vital Signs Date Time Temp Pulse Resp B/P (MAP) Pulse Ox O2 Delivery O2 Flow Rate FiO2 05/21/20 04:00 36.7 NIV Bilevel 80.00 05/21/20 04:00 96 NIV Bilevel 80 05/21/20 03:00 82 17 170/87 (114) 97 NIV Bilevel 80.00 05/21/20 02:52 NIV Bilevel 80.00 05/21/20 02:13 95 Vapotherm 40.00 90 05/21/20 02:00 Vapotherm 40.00 90.00 05/21/20 02:00 71 20 136/63 (87) 89 Vapotherm 40.00 90.00 05/21/20 01:00 79 22 146/74 (98) 92 Vapotherm 30.00 80.00 05/21/20 01:00 79 05/21/20 00:00 76 15 140/77 (98) 91 Vapotherm 30.00 80.00 05/21/20 00:00 94 Vapotherm 30.00 80 05/21/20 00:00 36.8 Vapotherm 30.00 80.00 05/20/20 23:00 80 16 139/67 (91) 92 Vapotherm 35.00 85.00 05/20/20 22:25 Vapotherm 35.00 85.00 05/20/20 22:00 81 21 137/65 (89) 95 Vapotherm 35.00 90.00 05/20/20 21:54 96 Vapotherm 35.00 90 05/20/20 21:00 77 11 142/68 (92) 95 Vapotherm 35.00 90.00 05/20/20 20:40 Vapotherm 35.00 90.00 05/20/20 20:00 93 26 152/83 (106) 91 Vapotherm 40.00 100.00 05/20/20 20:00 93 Vapotherm 40.00 100 05/20/20 19:00 37.2 Vapotherm 40.00 100.00 05/20/20 19:00 105 31 164/77 (106) 88 Vapotherm 40.00 100.00 05/20/20 19:00 105 05/20/20 18:26 96 Vapotherm 40.00 100 05/20/20 18:00 87 22 158/83 (108) 94 Vapotherm 40.00 100.00 05/20/20 17:00 79 12 156/92 (113) 93 Vapotherm 40.00 100.00 05/20/20 16:19 36.7 05/20/20 16:00 83 15 163/93 (116) 94 Vapotherm 40.00 100.00 05/20/20 15:00 99 9 165/80 (108) 94 Vapotherm 40.00 100.00 05/20/20 14:38 95 Vapotherm 40.00 100 05/20/20 14:00 80 12 135/99 (111) 94 Vapotherm 40.00 100.00 05/20/20 13:00 80 8 147/86 (106) 94 Vapotherm 40.00 100.00 05/20/20 12:48 77 05/20/20 12:00 82 20 153/86 (108) 98 Vapotherm 40.00 100.00 05/20/20 12:00 36.4 05/20/20 11:00 90 14 139/72 (94) 96 Vapotherm 40.00 100.00 05/20/20 10:37 96 Vapotherm 40.00 90 05/20/20 10:00 75 22 126/65 (85) 96 Vapotherm 40.00 100.00 05/20/20 09:00 67 12 123/86 (98) 94 Vapotherm 40.00 100.00 05/20/20 08:00 96 Vapotherm 40.00 100 05/20/20 08:00 66 24 122/74 (90) 86 Vapotherm 40.00 95.00 05/20/20 07:35 36.0 05/20/20 07:00 62 50 139/81 (100) 92 Vapotherm 40.00 95.00 05/20/20 06:53 Vapotherm 40.00 95.00 05/20/20 06:46 96 Vapotherm 40.00 90 05/20/20 06:39 63 05/20/20 06:34 Vapotherm 40.00 90.00 05/20/20 06:00 55 25 149/81 (103) 89 NIV Bilevel 80.00 I & O 05/21/20 07:00 Intake Total 1375 ml Output Total 2355 ml Balance -980 ml Height & Weight Height: '" Weight: lbs. oz. kg; 28.72 BMI Method: General Appearance: No Apparent Distress, Anxious HEENT: PERRL/EOMI, Pharynx Normal Neck: Normal Inspection, Supple Respiratory: No Accessory Muscle Use; No Crackles; Decreased Breath Sounds, Other (on Vapotherm) Cardiovascular: Regular Rate, Rhythm, No Murmur Capillary Refill: Less Than 3 Seconds Gastrointestinal: normal bowel sounds, non tender, soft Extremity: Normal Inspection, Non Tender, No Pedal Edema Neurologic/Psychiatric: Alert, Oriented x3 Skin: Normal Color, Warm/Dry Results Lab Laboratory Tests 05/20/20 03:55 05/21/20 05:06 Assessment/Plan Assessment/Plan Acute worsening respiratory failure due to COVID-19 with ARDS -Pt will most likely need intubation -BiPAP -precedex gtt -Morphine PRN -Oxygen -lasix 40mg BID -Labs, and CXR reviewed PNA Metabolic acidosis -Lactic acid repeat is normal Hyperglycemia A1C pending Sliding scale insulin Levemir 10 units daily HTN Lisinopril DVT prophylaxis: BERNARDO Camara DO May 21, 2020 05:37
[2020-05-21] MEDS: POTASSIUM CL 10MEQ/50ML IVPB 50 ML IV SCH (05:45)
[2020-05-21] MEDS: MAGNESIUM 1 GM/100 ML IVPB 100 ML IV SCH (05:45)
[2020-05-21] MEDS: KCL 20 MEQ TAB (K-DUR) PO SCH ×3 (05:45→16:51)
[2020-05-21] MEDS: inSUlin ASPART (NovoLOG) 1 UNIT/0.01 ML (CHARGE PER UNIT) SC SCH ×4 (05:46→21:03)
[2020-05-21 05:53] LABS: BAND NEUTROPHILS 0 %; BASOPHILS % (MANUAL) 0 %; EOSINOPHILS % (MANUAL) 0 %; LYMPHOCYTES % (MANUAL) 4 %; MONOCYTES % (MANUAL) 1 %; NEUTROPHILS % (MANUAL) 86 %; RBC MORPH NORMAL; REACTIVE LYMPHOCYTES 9 %
[2020-05-21] MEDS: FUROSEMIDE 40 MG/4 ML INJ (LASIX) IVP SCH ×2 (07:48→16:51)
[2020-05-21] MEDS: ENOXAPARIN 80 MG/0.8 ML (LOVENOX) SYR SC SCH ×2 (07:49→20:57)
[2020-05-21] MEDS: cefTRIAXone 1,000 MG/SWFI 10 ML IV PUSH IV SCH ×2 (14:26)
[2020-05-22] VITALS (23 sets, daily range): BP systolic 137–175; BP diastolic 71–118
[2020-05-22] MEDS: RT-ALBUTEROL INHALER HFA (VENTOLIN HFA) 18 GM IH SCH ×6 (02:29→21:58)
[2020-05-22 04:34] LABS: BASOPHILS % (AUTO) 0 % (0-10); EOSINOPHILS % (AUTO) 0 % (0-10); HEMATOCRIT 47 % (40-54); HEMOGLOBIN 15.8 g/dL (13.3-17.7); LYMPHOCYTES # (AUTO) 0.9 10^3/uL (1.0-4.0); LYMPHOCYTES % (AUTO) 8 % (12-44); MEAN CORPUSCULAR HEMOGLOBIN 28 pg (25-34); MEAN CORPUSCULAR HGB CONC 34 g/dL (32-36); MEAN CORPUSCULAR VOLUME 81 fL (80-99); MEAN PLATELET VOLUME 10.8 fL (9.0-12.2); MONOCYTES # (AUTO) 0.5 10^3/uL (0.0-1.0); MONOCYTES % (AUTO) 5 % (0-12); NEUTROPHILS # (AUTO) 9.1 10^3/uL (1.8-7.8); NEUTROPHILS % (AUTO) 86 % (42-75); PLATELET COUNT 275 10^3/uL (130-400); WHITE BLOOD COUNT 10.6 10^3/uL (4.3-11.0)
[2020-05-22 04:45] LABS: CHLORIDE 104 MMOL/L (98-107); POTASSIUM 3.9 MMOL/L (3.6-5.0); SODIUM 139 MMOL/L (135-145)
[2020-05-22 04:46] LABS: CALCIUM 8.1 MG/DL (8.5-10.1)
[2020-05-22 04:47] LABS: GLUCOSE 158 MG/DL (70-105)
[2020-05-22 04:48] LABS: CARBON DIOXIDE 26 MMOL/L (21-32)
[2020-05-22 04:50] LABS: PHOSPHORUS 3.9 MG/DL (2.3-4.7)
[2020-05-22 04:51] LABS: CREATININE SERUM 0.77 MG/DL (0.60-1.30); GFR ESTIMATED > 60
[2020-05-22 04:52] LABS: BUN/CREATININE RATIO 34
--- NOTE | 2020-05-22 05:42 | Pulmonary Progress Note ---
Subjective Time Seen by a Provider: 05:38 Sepsis Event Evaluation Height, Weight, BMI Height: '" Weight: lbs. oz. kg; 28.72 BMI Method: Exam Exam Vital Signs Date Time Temp Pulse Resp B/P (MAP) Pulse Ox O2 Delivery O2 Flow Rate FiO2 05/22/20 05:00 68 18 152/87 (108) 89 NIV Bilevel 70.00 05/22/20 04:00 75 21 154/86 (108) 90 NIV Bilevel 70.00 05/22/20 03:00 36.5 NIV Bilevel 70.00 05/22/20 02:39 22 97 70.00 05/22/20 02:30 90 Vapotherm 35.00 70 05/22/20 02:00 71 11 146/76 (99) 89 Vapotherm 35.00 70.00 05/22/20 01:00 70 13 150/78 (102) 92 Vapotherm 35.00 70.00 05/22/20 01:00 72 05/21/20 23:00 78 18 159/78 (105) 92 Vapotherm 35.00 70.00 05/21/20 22:51 36.6 Vapotherm 35.00 70.00 05/21/20 22:12 92 Vapotherm 25.00 60 05/21/20 21:00 73 21 168/78 (108) 95 Vapotherm 25.00 60.00 05/21/20 20:00 94 Vapotherm 25.00 60 05/21/20 20:00 88 18 160/74 (102) 95 Vapotherm 25.00 60.00 05/21/20 19:00 81 18 160/74 (102) 95 Vapotherm 25.00 60.00 05/21/20 19:00 36.8 Vapotherm 25.00 60.00 05/21/20 19:00 101 05/21/20 18:22 91 Vapotherm 25.00 60 05/21/20 18:00 89 27 157/76 (103) 95 Vapotherm 25.00 60.00 05/21/20 17:00 94 20 172/83 (112) 86 Vapotherm 20.00 50.00 05/21/20 16:00 36.7 05/21/20 16:00 84 10 136/63 (87) 95 Vapotherm 20.00 50.00 05/21/20 15:00 100 15 157/82 (107) 88 Vapotherm 20.00 50.00 05/21/20 14:44 95 Vapotherm 20.00 50 05/21/20 14:00 92 15 157/83 (107) 92 Vapotherm 20.00 50.00 05/21/20 13:28 36.7 60 98 75 05/21/20 13:00 83 16 159/87 (111) 94 Vapotherm 20.00 50.00 05/21/20 13:00 82 05/21/20 12:00 82 9 153/86 (108) 91 Vapotherm 20.00 50.00 05/21/20 12:00 36.5 05/21/20 11:00 80 32 143/72 (95) 97 Vapotherm 30.00 75.00 05/21/20 10:41 98 Vapotherm 30.00 75 05/21/20 10:00 73 23 133/77 (95) 93 Vapotherm 30.00 75.00 05/21/20 09:00 73 11 136/87 (103) 97 Vapotherm 40.00 90.00 05/21/20 08:00 71 14 137/100 (112) 90 Vapotherm 40.00 100.00 05/21/20 08:00 36.5 05/21/20 07:54 96 Vapotherm 40.00 100 05/21/20 07:13 Vapotherm 40.00 100.00 05/21/20 07:06 90 Vapotherm 40.00 90 05/21/20 07:00 58 05/21/20 07:00 60 31 166/87 (113) 89 NIV Bilevel 80.00 05/21/20 06:00 60 30 156/82 (106) 92 NIV Bilevel 80.00 I & O 05/22/20 07:00 Intake Total 1800 ml Output Total 2850 ml Balance -1050 ml Height & Weight Height: '" Weight: lbs. oz. kg; 28.72 BMI Method: General Appearance: No Apparent Distress, Anxious HEENT: PERRL/EOMI, Pharynx Normal Neck: Normal Inspection, Supple Respiratory: No Accessory Muscle Use; No Crackles; Decreased Breath Sounds, Other (on Vapotherm) Cardiovascular: Regular Rate, Rhythm, No Murmur Capillary Refill: Less Than 3 Seconds Gastrointestinal: normal bowel sounds, non tender, soft Extremity: Normal Inspection, Non Tender, No Pedal Edema Neurologic/Psychiatric: Alert, Oriented x3 Skin: Normal Color, Warm/Dry Results Lab Laboratory Tests 05/21/20 05:06 05/22/20 04:15 Assessment/Plan Assessment/Plan Acute worsening respiratory failure due to COVID-19 with ARDS -BiPAP -Morphine PRN -Oxygen -lasix 40mg BID -Labs, and CXR reviewed PNA Metabolic acidosis -Lactic acid repeat is normal Hyperglycemia A1C pending Sliding scale insulin Levemir 10 units daily HTN Lisinopril DVT prophylaxis: LoveBERNARDO Emmanuel DO May 22, 2020 05:42
[2020-05-22] MEDS: MAGNESIUM 1 GM/100 ML IVPB 100 ML IV SCH (06:09)
[2020-05-22] MEDS: POTASSIUM CL 10MEQ/50ML IVPB 50 ML IV SCH (06:09)
[2020-05-22] MEDS: inSUlin ASPART (NovoLOG) 1 UNIT/0.01 ML (CHARGE PER UNIT) SC SCH ×4 (06:10→20:14)
[2020-05-22] MEDS: KCL 20 MEQ TAB (K-DUR) PO SCH ×2 (06:10→09:05)
--- NOTE | 2020-05-22 08:08 | Diagnostic Imaging Report ---
INDICATION: Shortness of air, COVID positive. TECHNIQUE: Single view chest 2:57 AM. CORRELATION STUDY: 05/21/2020 FINDINGS: Mediastinal structures and heart size appearing generally stable. Scattered faint bilateral pulmonary opacities do persist but overall appear slightly improved from previous. No new areas of consolidation. IMPRESSION: 1. Scattered bilateral pulmonary opacities persisting overall appearing slightly improved. Favors probable residual multilobe pneumonia versus potentially edema. Dictated by: Dictated on workstation # [id number]
[2020-05-22] MEDS ORDERED: FLUCONAZOLE 200 MG/100 ML 100 ML IV ONE (08:46)
[2020-05-22] MEDS ORDERED: FLUCONAZOLE 200 MG/100 ML 50 ML, EMPTY IV BAG (PVC) 1 EA IV SCH ×2 (09:00)
[2020-05-22] MEDS: FUROSEMIDE 40 MG/4 ML INJ (LASIX) IVP SCH (09:04)
[2020-05-22] MEDS: FLUCONAZOLE 200 MG/100 ML 50 ML, EMPTY IV BAG (PVC) 1 EA IV SCH ×2 (09:04)
[2020-05-22] MEDS: ENOXAPARIN 80 MG/0.8 ML (LOVENOX) SYR SC SCH ×2 (09:05→20:13)
[2020-05-22] MEDS: PANTOPRAZOLE 40 MG (PROTONIX) TAB PO SCH (09:06)
[2020-05-22] MEDS: cefTRIAXone 1,000 MG/SWFI 10 ML IV PUSH IV SCH ×2 (14:02)
[2020-05-23] VITALS (26 sets, daily range): BP systolic 127–173; BP diastolic 76–97
[2020-05-23] MEDS: RT-ALBUTEROL INHALER HFA (VENTOLIN HFA) 18 GM IH SCH ×6 (01:22→22:05)
[2020-05-23 03:44] LABS: BASOPHILS % (AUTO) 0 % (0-10); EOSINOPHILS % (AUTO) 0 % (0-10); HEMATOCRIT 47 % (40-54); HEMOGLOBIN 16.1 g/dL (13.3-17.7); LYMPHOCYTES # (AUTO) 0.9 10^3/uL (1.0-4.0); LYMPHOCYTES % (AUTO) 8 % (12-44); MEAN CORPUSCULAR HEMOGLOBIN 28 pg (25-34); MEAN CORPUSCULAR HGB CONC 34 g/dL (32-36); MEAN CORPUSCULAR VOLUME 81 fL (80-99); MEAN PLATELET VOLUME 10.9 fL (9.0-12.2); MONOCYTES # (AUTO) 0.5 10^3/uL (0.0-1.0); MONOCYTES % (AUTO) 5 % (0-12); NEUTROPHILS # (AUTO) 9.3 10^3/uL (1.8-7.8); NEUTROPHILS % (AUTO) 86 % (42-75); PLATELET COUNT 284 10^3/uL (130-400); WHITE BLOOD COUNT 10.8 10^3/uL (4.3-11.0)
[2020-05-23 04:00] LABS: CHLORIDE 103 MMOL/L (98-107); POTASSIUM 4.2 MMOL/L (3.6-5.0); SODIUM 139 MMOL/L (135-145)
[2020-05-23 04:01] LABS: CALCIUM 8.1 MG/DL (8.5-10.1); GLUCOSE 123 MG/DL (70-105)
[2020-05-23 04:03] LABS: CARBON DIOXIDE 26 MMOL/L (21-32)
[2020-05-23 04:05] LABS: CREATININE SERUM 0.75 MG/DL (0.60-1.30); GFR ESTIMATED > 60; PHOSPHORUS 3.6 MG/DL (2.3-4.7)
[2020-05-23 04:06] LABS: BUN/CREATININE RATIO 35
[2020-05-23 04:08] LABS: MAGNESIUM 2.1 MG/DL (1.6-2.4)
[2020-05-23] MEDS: KCL 20 MEQ TAB (K-DUR) PO SCH ×2 (05:26→08:34)
[2020-05-23] MEDS: MAGNESIUM 1 GM/100 ML IVPB 100 ML IV SCH (05:26)
[2020-05-23] MEDS: POTASSIUM CL 10MEQ/50ML IVPB 50 ML IV SCH (05:26)
[2020-05-23] MEDS: inSUlin ASPART (NovoLOG) 1 UNIT/0.01 ML (CHARGE PER UNIT) SC SCH ×4 (05:26→20:24)
[2020-05-23] MEDS: PANTOPRAZOLE 40 MG (PROTONIX) TAB PO SCH (08:34)
[2020-05-23] MEDS: FUROSEMIDE 40 MG/4 ML INJ (LASIX) IVP SCH (08:34)
[2020-05-23] MEDS: ENOXAPARIN 80 MG/0.8 ML (LOVENOX) SYR SC SCH ×2 (08:35→20:20)
[2020-05-23] MEDS: FLUCONAZOLE 200 MG/100 ML 50 ML, EMPTY IV BAG (PVC) 1 EA IV SCH ×2 (08:35)
--- NOTE | 2020-05-23 09:14 | Diagnostic Imaging Report ---
EXAMINATION: Chest radiograph, portable AP view. DATE: 05/23/2020 4:22 AM INDICATION: 64-year-old male, COVID positive. Shortness of breath. COMPARISON: 05/22/2020. FINDINGS: Heart size and mediastinal contours are unchanged. There is no identified pneumothorax. There is no large pleural effusion. There are hazy bilateral interstitial and/or alveolar opacities which are unchanged. IMPRESSION: 1. Unchanged hazy bilateral interstitial and/or alveolar opacities. Findings may reflect multifocal pneumonia, pneumonitis, and/or edema. Dictated by: Dictated on workstation # [id number]
[2020-05-23] MEDS ORDERED: lisINopril 20 MG (PRINIVIL) TABLET PO ONE (09:45)
--- NOTE | 2020-05-23 09:49 | Progress Note - Hospitalist ---
Subjective HPI/CC On Admission Date Seen by Provider: May 23, 2020 Time Seen by Provider: 09:46 Phillip Perkins is a 64-year-old male with no known past medical history who presented with shortness of breath. He started getting sick about a week ago. He has been having a cough. He denies any fevers or chills. He denies any changes in his sense of taste or smell. He denies any nausea or vomiting. He denies any diarrhea. He reports having some chest pain and with coughing. He does not follow with a doctor. He says he lost a lot of weight recently. He says he has been told that he had high blood pressure before. He has no known history of diabetes. Subjective/Events-last exam Pt reports doing well. No complaints. Feels breathing is improving. Objective Exam Vital Signs Vital Signs Date Time Temp Pulse Resp B/P (MAP) Pulse Ox O2 Delivery O2 Flow Rate FiO2 05/23/20 09:00 96 24 169/89 (114) 93 Vapotherm 25.00 70.00 05/23/20 08:00 70 05/23/20 04:00 36.5 Capillary Refill : Less Than 3 Seconds General Appearance: No Apparent Distress, WD/WN Respiratory: No Accessory Muscle Use, Decreased Breath Sounds; No Wheezing; Other (On Vapotherm) Cardiovascular: Regular Rate, Rhythm, No Murmur Neurologic/Psychiatric: Alert, Oriented x3 Results/Procedures Lab Laboratory Tests 05/23/20 03:05 Patient resulted labs reviewed. Imaging: Reviewed Imaging Report Assessment/Plan Assessment and Plan Assess & Plan/Chief Complaint Acute respiratory failure due to COVID-19 PNA Lactic acidosis COVID TASHA positive Continue Decadron CT chest with hazy groundglass opacities, no consolidation or underlying mass Convalescent plasma given On vapotherm, wean as able Continue Rocephin Tele ICU consulted, appreciate assistance Newly diagnosed DM A1C 11.8 Sliding scale insulin Levemir 10 units daily HTN Resume Lisinopril DVT prophylaxis: CARMITA Lyon MD May 23, 2020 09:49
[2020-05-23] MEDS: cefTRIAXone 1,000 MG/SWFI 10 ML IV PUSH IV SCH ×2 (14:00)
[2020-05-24] VITALS (23 sets, daily range): BP systolic 111–171; BP diastolic 69–105
[2020-05-24] MEDS: RT-ALBUTEROL INHALER HFA (VENTOLIN HFA) 18 GM IH SCH ×6 (02:15→22:29)
[2020-05-24 04:00] LABS: BASOPHILS % (AUTO) 0 % (0-10); EOSINOPHILS % (AUTO) 0 % (0-10); HEMATOCRIT 50 % (40-54); HEMOGLOBIN 16.7 g/dL (13.3-17.7); LYMPHOCYTES # (AUTO) 0.8 10^3/uL (1.0-4.0); LYMPHOCYTES % (AUTO) 6 % (12-44); MEAN CORPUSCULAR HEMOGLOBIN 28 pg (25-34); MEAN CORPUSCULAR HGB CONC 33 g/dL (32-36); MEAN CORPUSCULAR VOLUME 83 fL (80-99); MONOCYTES # (AUTO) 0.6 10^3/uL (0.0-1.0); MONOCYTES % (AUTO) 5 % (0-12); NEUTROPHILS # (AUTO) 12.1 10^3/uL (1.8-7.8); NEUTROPHILS % (AUTO) 88 % (42-75); PLATELET COUNT 269 10^3/uL (130-400); WHITE BLOOD COUNT 13.7 10^3/uL (4.3-11.0)
[2020-05-24 04:12] LABS: CHLORIDE 102 MMOL/L (98-107); POTASSIUM 4.4 MMOL/L (3.6-5.0); SODIUM 140 MMOL/L (135-145)
[2020-05-24 04:13] LABS: CALCIUM 8.3 MG/DL (8.5-10.1); GLUCOSE 137 MG/DL (70-105)
[2020-05-24 04:15] LABS: CARBON DIOXIDE 26 MMOL/L (21-32)
[2020-05-24 04:17] LABS: CREATININE SERUM 0.84 MG/DL (0.60-1.30); GFR ESTIMATED > 60; PHOSPHORUS 3.9 MG/DL (2.3-4.7)
[2020-05-24 04:18] LABS: BUN/CREATININE RATIO 33
[2020-05-24 04:20] LABS: MAGNESIUM 2.2 MG/DL (1.6-2.4)
[2020-05-24] MEDS: POTASSIUM CL 10MEQ/50ML IVPB 50 ML IV SCH ×2 (04:20→04:24)
[2020-05-24] MEDS: KCL 20 MEQ TAB (K-DUR) PO SCH ×3 (04:21→08:30)
[2020-05-24] MEDS: inSUlin ASPART (NovoLOG) 1 UNIT/0.01 ML (CHARGE PER UNIT) SC SCH ×4 (04:21→20:21)
[2020-05-24] MEDS: MAGNESIUM 1 GM/100 ML IVPB 100 ML IV SCH ×2 (04:21→04:24)
--- NOTE | 2020-05-24 08:07 | Diagnostic Imaging Report ---
Indication: Dyspnea, follow-up COVID pneumonia. Comparison: 05/23/2020. Discussion: Single portable upright view of the chest was obtained. Patchy groundglass infiltrates are noted bilaterally, slightly decreased from the prior. No pleural fluid or pneumothorax. Normal heart size. No osseous abnormality. Impression: 1. Bilateral groundglass infiltrates, slightly decreased. Dictated by: Dictated on workstation # [id number]
[2020-05-24] MEDS: ENOXAPARIN 80 MG/0.8 ML (LOVENOX) SYR SC SCH ×2 (08:29→20:07)
[2020-05-24] MEDS: lisINopril 20 MG (PRINIVIL) TABLET PO SCH (08:30)
[2020-05-24] MEDS: PANTOPRAZOLE 40 MG (PROTONIX) TAB PO SCH (08:30)
[2020-05-24] MEDS: FUROSEMIDE 40 MG/4 ML INJ (LASIX) IVP SCH (08:30)
[2020-05-24] MEDS: FLUCONAZOLE 200 MG/100 ML 50 ML, EMPTY IV BAG (PVC) 1 EA IV SCH ×2 (08:37)
[2020-05-24] MEDS ORDERED: ALPRAZolam 0.25 MG (XANAX) TAB PO PRN (10:00)
[2020-05-24] MEDS ORDERED: ZINC OXIDE 16% OINT (BUTT PASTE) 57 GM TUBE TOP PRN (10:00)
--- NOTE | 2020-05-24 10:00 | Progress Note - Hospitalist ---
Subjective HPI/CC On Admission Date Seen by Provider: May 24, 2020 Time Seen by Provider: 09:57 Phillip Perkins is a 64-year-old male with no known past medical history who presented with shortness of breath. He started getting sick about a week ago. He has been having a cough. He denies any fevers or chills. He denies any changes in his sense of taste or smell. He denies any nausea or vomiting. He denies any diarrhea. He reports having some chest pain and with coughing. He does not follow with a doctor. He says he lost a lot of weight recently. He says he has been told that he had high blood pressure before. He has no known history of diabetes. Subjective/Events-last exam Pt reports feeling well. Per RN was moving in bed to sit up and desatted so now back on Vapotherm but had been down to nasal cannula. Objective Exam Vital Signs Vital Signs Date Time Temp Pulse Resp B/P (MAP) Pulse Ox O2 Delivery O2 Flow Rate FiO2 05/24/20 09:00 112 18 91 Vapotherm 40.00 80.00 05/24/20 08:25 100 05/24/20 07:55 36.7 161/89 (113) Capillary Refill : Less Than 3 Seconds General Appearance: No Apparent Distress, WD/WN Respiratory: Decreased Breath Sounds; No Rhonci; Other (Vapotherm) Cardiovascular: Regular Rate, Rhythm, No Murmur Gastrointestinal: Normal Bowel Sounds, Soft Neurologic/Psychiatric: Alert, Oriented x3 Results/Procedures Lab Laboratory Tests 05/24/20 03:30 Patient resulted labs reviewed. Imaging: Reviewed Imaging Report Assessment/Plan Assessment and Plan Assess & Plan/Chief Complaint Acute respiratory failure due to COVID-19 PNA Lactic acidosis COVID TASHA positive Continue Decadron CT chest with hazy groundglass opacities, no consolidation or underlying mass Convalescent plasma given On vapotherm, wean as able, was down yesterday but back up with activity Continue Natan Tele ICU consulted, appreciate assistance Newly diagnosed DM A1C 11.8 Sliding scale insulin Levemir 10 units daily HTN Lisinopril DVT prophylaxis: Lovearabellax CARMITA GARCIA MD May 24, 2020 10:00
[2020-05-24] MEDS: SENNA W/DOCUSATE (SENOKOT S) TABLET PO PRN (11:19)
[2020-05-24] MEDS: cefTRIAXone 1,000 MG/SWFI 10 ML IV PUSH IV SCH ×2 (14:57)
[2020-05-25] VITALS (28 sets, daily range): BP systolic 101–157; BP diastolic 58–94
[2020-05-25] MEDS: RT-ALBUTEROL INHALER HFA (VENTOLIN HFA) 18 GM IH SCH ×6 (02:01→21:17)
[2020-05-25 03:56] LABS: ABG BASE EXCESS 4.7 MMOL/L (-2.5-2.5); ABG OXYGEN SATURATION 94 % (94-100); ABG PCO2 39 MMHG (35-45); ABG PH 7.47 (7.37-7.43); ABG PO2 72 MMHG (79-93); ABG TCO2 29.5 MMOL/L (21.0-31.0)
[2020-05-25 03:57] LABS: BASOPHILS % (AUTO) 0 % (0-10); EOSINOPHILS % (AUTO) 0 % (0-10); HEMATOCRIT 49 % (40-54); HEMOGLOBIN 16.2 g/dL (13.3-17.7); INSPIRED O2 90%; LYMPHOCYTES # (AUTO) 0.9 10^3/uL (1.0-4.0); LYMPHOCYTES % (AUTO) 6 % (12-44); MEAN CORPUSCULAR HEMOGLOBIN 27 pg (25-34); MEAN CORPUSCULAR HGB CONC 33 g/dL (32-36); MEAN CORPUSCULAR VOLUME 83 fL (80-99); MEAN PLATELET VOLUME 11.2 fL (9.0-12.2); MONOCYTES # (AUTO) 0.4 10^3/uL (0.0-1.0); MONOCYTES % (AUTO) 3 % (0-12); NEUTROPHILS # (AUTO) 13.2 10^3/uL (1.8-7.8); NEUTROPHILS % (AUTO) 90 % (42-75); PATIENT TEMP NOT INDICATED; PLATELET COUNT 235 10^3/uL (130-400); VENTILATOR NO; WHITE BLOOD COUNT 14.7 10^3/uL (4.3-11.0)
[2020-05-25 04:04] LABS: CHLORIDE 102 MMOL/L (98-107); POTASSIUM 4.2 MMOL/L (3.6-5.0); SODIUM 139 MMOL/L (135-145)
[2020-05-25 04:05] LABS: CALCIUM 8.4 MG/DL (8.5-10.1)
[2020-05-25 04:06] LABS: GLUCOSE 82 MG/DL (70-105)
[2020-05-25 04:07] LABS: CARBON DIOXIDE 28 MMOL/L (21-32)
[2020-05-25 04:09] LABS: PHOSPHORUS 3.6 MG/DL (2.3-4.7)
[2020-05-25 04:10] LABS: CREATININE SERUM 0.82 MG/DL (0.60-1.30); GFR ESTIMATED > 60
[2020-05-25 04:11] LABS: BUN/CREATININE RATIO 35
[2020-05-25 04:12] LABS: MAGNESIUM 2.5 MG/DL (1.6-2.4)
--- NOTE | 2020-05-25 04:50 | Pulmonary Progress Note ---
Subjective Time Seen by a Provider: 04:45 Sepsis Event Evaluation Height, Weight, BMI Height: '" Weight: lbs. oz. kg; 28.72 BMI Method: Exam Exam Vital Signs Date Time Temp Pulse Resp B/P (MAP) Pulse Ox O2 Delivery O2 Flow Rate FiO2 05/25/20 04:00 73 9 136/79 (98) 92 NIV Bilevel 90.00 05/25/20 03:00 65 27 124/77 (94) 89 NIV Bilevel 90.00 05/25/20 02:01 14 90 90.00 05/25/20 02:00 71 17 117/76 (90) 88 NIV Bilevel 90.00 05/25/20 01:00 75 118/73 (92) 92 NIV Bilevel 90.00 05/25/20 01:00 NIV Bilevel 90.00 05/25/20 01:00 75 05/25/20 00:30 NIV Bilevel 75.00 05/25/20 00:00 75 36 115/67 (83) 86 Vapotherm 40.00 100.00 05/24/20 23:00 96 11 132/78 (89) 88 Vapotherm 40.00 100.00 05/24/20 22:29 90 Vapotherm 40.00 100 05/24/20 22:00 84 13 138/86 (111) 87 Vapotherm 40.00 100.00 05/24/20 22:00 Vapotherm 40.00 100.00 05/24/20 21:00 80 12 152/86 (132) 92 NIV Bilevel 75.00 05/24/20 20:00 94 NIV Bilevel 75 05/24/20 20:00 94 12 157/92 (110) 87 NIV Bilevel 75.00 05/24/20 20:00 NIV Bilevel 75.00 05/24/20 19:00 92 05/24/20 19:00 92 14 147/96 (112) 91 Vapotherm 40.00 100.00 05/24/20 18:24 92 Vapotherm 40.00 100 05/24/20 18:00 92 15 152/105 (121) 94 Vapotherm 40.00 100.00 05/24/20 17:19 Vapotherm 100.00 05/24/20 17:00 84 10 140/90 (107) 94 Vapotherm 40.00 80.00 05/24/20 16:00 93 17 149/87 (107) 92 Vapotherm 40.00 80.00 05/24/20 15:14 36.5 05/24/20 15:00 108 30 171/83 (112) 91 Vapotherm 40.00 80.00 05/24/20 14:00 90 9 144/87 (106) 91 Vapotherm 40.00 80.00 05/24/20 13:00 102 13 111/85 (94) 90 Vapotherm 40.00 80.00 05/24/20 12:25 99 05/24/20 12:00 93 22 152/69 (96) 91 Vapotherm 40.00 80.00 05/24/20 11:23 37.5 05/24/20 11:00 105 9 147/82 (103) 91 Vapotherm 40.00 80.00 05/24/20 10:55 91 Vapotherm 40.00 100 05/24/20 10:00 98 4 150/84 (106) 93 Vapotherm 40.00 80.00 05/24/20 09:00 112 18 91 Vapotherm 40.00 80.00 05/24/20 08:25 94 Vapotherm 40.00 100 05/24/20 07:55 36.7 113 16 161/89 (113) 88 Vapotherm 40.00 80.00 05/24/20 07:03 91 High Flow N/C 7.00 05/24/20 07:00 95 20 161/89 (113) 93 High Flow N/C 8.00 05/24/20 07:00 119 05/24/20 06:00 92 22 156/76 (102) 92 High Flow N/C 8.00 05/24/20 05:00 96 16 149/89 (109) 93 High Flow N/C 8.00 I & O 05/25/20 07:00 Intake Total 700 ml Output Total 1550 ml Balance -850 ml Height & Weight Height: '" Weight: lbs. oz. kg; 28.72 BMI Method: General Appearance: No Apparent Distress, WD/WN HEENT: PERRL/EOMI, Pharynx Normal Neck: Normal Inspection, Supple Respiratory: Decreased Breath Sounds; No Rhonci; Other (Vapotherm) Cardiovascular: Regular Rate, Rhythm, No Murmur Capillary Refill: Less Than 3 Seconds Gastrointestinal: normal bowel sounds, non tender, soft Extremity: Normal Inspection, Non Tender, No Pedal Edema Neurologic/Psychiatric: Alert, Oriented x3 Skin: Normal Color, Warm/Dry Results Lab Laboratory Tests 05/24/20 03:30 05/25/20 03:42 Assessment/Plan Assessment/Plan Acute worsening respiratory failure due to COVID-19 with ARDS -Vapotherm/BiPAP - now requing 90% -Oxygen -lasix 40mg -Labs, and CXR reviewed PNA -Currently on Rocephin -Repeat BNP, DDImer, and PCT Metabolic acidosis -Lactic acid repeat is normal Hyperglycemia Sliding scale insulin Levemir 10 units daily HTN Lisinopril DVT prophylaxis: theraputic dose Lovenox BERNARDO MOSS DO May 25, 2020 04:50
[2020-05-25 05:09] LABS: ALBUMIN 2.9 GM/DL (3.2-4.5)
[2020-05-25 05:12] LABS: TOTAL PROTEIN 6.2 GM/DL (6.4-8.2)
[2020-05-25 05:13] LABS: BILIRUBIN,TOTAL 0.9 MG/DL (0.1-1.0)
[2020-05-25 05:15] LABS: ALKALINE PHOSPHATASE 81 U/L (40-136)
[2020-05-25 05:18] LABS: ALANINE AMINOTRANSFERASE 37 U/L (0-55)
[2020-05-25] MEDS: inSUlin ASPART (NovoLOG) 1 UNIT/0.01 ML (CHARGE PER UNIT) SC SCH ×4 (06:06→20:07)
[2020-05-25] MEDS: POTASSIUM CL 10MEQ/50ML IVPB 50 ML IV SCH (06:24)
[2020-05-25] MEDS: KCL 20 MEQ TAB (K-DUR) PO SCH ×2 (06:25→08:30)
[2020-05-25] MEDS: MAGNESIUM 1 GM/100 ML IVPB 100 ML IV SCH (06:25)
--- NOTE | 2020-05-25 07:14 | Diagnostic Imaging Report ---
INDICATION: Followup shortness of air, COVID positive, ICU care. COMPARISON STUDY: Chest from yesterday. FINDINGS: Frontal view of the chest demonstrates patchy bilateral somewhat groundglass appearance of pulmonary infiltrates have improved. Heart size remains mildly enlarged with normal vascularity. No pleural effusions are present. IMPRESSION: There has been continued improvement of the bilateral pulmonary infiltrates. Dictated by: Dictated on workstation # [id number]
[2020-05-25] MEDS: PANTOPRAZOLE 40 MG (PROTONIX) TAB PO SCH (08:30)
[2020-05-25] MEDS: lisINopril 20 MG (PRINIVIL) TABLET PO SCH (08:30)
[2020-05-25] MEDS: FUROSEMIDE 40 MG/4 ML INJ (LASIX) IVP SCH (08:30)
[2020-05-25] MEDS: PIPERACILLIN/TAZO 4.5 GM/NS 100 ML IV SCH ×4 (08:30→15:18)
[2020-05-25] MEDS: FLUCONAZOLE 200 MG/100 ML 50 ML, EMPTY IV BAG (PVC) 1 EA IV SCH ×2 (08:30)
[2020-05-25] MEDS: ENOXAPARIN 80 MG/0.8 ML (LOVENOX) SYR SC SCH ×2 (08:30→20:07)
--- NOTE | 2020-05-25 09:53 | Physical Therapy Progress Note ---
Therapy Progress Note Patient on Hold per RN due to patient increase in O2 demand with decreased SAO2. PT will attempt in a.m. CHIOMA BUCKNER PT May 25, 2020 09:53
[2020-05-25] MEDS: DexMEDEtomidine 1,000 MCG/250 ML IV SCH (13:21)
[2020-05-25] MEDS: SENNA W/DOCUSATE (SENOKOT S) TABLET PO PRN ×2 (13:21→20:06)
[2020-05-26] VITALS (25 sets, daily range): BP systolic 96–150; BP diastolic 63–97
[2020-05-26] MEDS: PIPERACILLIN/TAZO 4.5 GM/NS 100 ML IV SCH ×8 (00:22→23:31)
[2020-05-26] MEDS: RT-ALBUTEROL INHALER HFA (VENTOLIN HFA) 18 GM IH SCH ×6 (02:10→21:57)
[2020-05-26 04:08] LABS: BASOPHILS % (AUTO) 0 % (0-10); EOSINOPHILS # (AUTO) 0.1 10^3/uL (0.0-0.3); EOSINOPHILS % (AUTO) 0 % (0-10); HEMATOCRIT 45 % (40-54); HEMOGLOBIN 15.5 g/dL (13.3-17.7); LYMPHOCYTES # (AUTO) 0.7 10^3/uL (1.0-4.0); LYMPHOCYTES % (AUTO) 6 % (12-44); MEAN CORPUSCULAR HEMOGLOBIN 28 pg (25-34); MEAN CORPUSCULAR HGB CONC 34 g/dL (32-36); MEAN CORPUSCULAR VOLUME 83 fL (80-99); MEAN PLATELET VOLUME 11.8 fL (9.0-12.2); MONOCYTES # (AUTO) 0.3 10^3/uL (0.0-1.0); MONOCYTES % (AUTO) 3 % (0-12); NEUTROPHILS # (AUTO) 10.1 10^3/uL (1.8-7.8); NEUTROPHILS % (AUTO) 90 % (42-75); PLATELET COUNT 219 10^3/uL (130-400); WHITE BLOOD COUNT 11.3 10^3/uL (4.3-11.0)
[2020-05-26 04:14] LABS: CHLORIDE 102 MMOL/L (98-107); POTASSIUM 4.5 MMOL/L (3.6-5.0); SODIUM 135 MMOL/L (135-145)
[2020-05-26 04:15] LABS: GLUCOSE 196 MG/DL (70-105)
[2020-05-26 04:17] LABS: CARBON DIOXIDE 23 MMOL/L (21-32)
[2020-05-26 04:19] LABS: CREATININE SERUM 0.91 MG/DL (0.60-1.30); GFR ESTIMATED > 60; PHOSPHORUS 3.4 MG/DL (2.3-4.7)
[2020-05-26 04:20] LABS: BUN/CREATININE RATIO 30
[2020-05-26 04:22] LABS: MAGNESIUM 2.2 MG/DL (1.6-2.4)
[2020-05-26] MEDS: MAGNESIUM 1 GM/100 ML IVPB 100 ML IV SCH (04:30)
[2020-05-26] MEDS: POTASSIUM CL 10MEQ/50ML IVPB 50 ML IV SCH (04:30)
[2020-05-26] MEDS: KCL 20 MEQ TAB (K-DUR) PO SCH ×2 (04:31→09:55)
--- NOTE | 2020-05-26 04:59 | Pulmonary Progress Note ---
Subjective Time Seen by a Provider: 04:53 Subjective/Events-last exam Pt is now requiring 80% BiPAP. Sepsis Event Evaluation Height, Weight, BMI Height: '" Weight: lbs. oz. kg; 28.72 BMI Method: Exam Exam Vital Signs Date Time Temp Pulse Resp B/P (MAP) Pulse Ox O2 Delivery O2 Flow Rate FiO2 05/26/20 04:11 36.8 Vapotherm 40.00 100.00 05/26/20 04:00 72 20 115/77 (90) 95 NIV Bilevel 80.00 05/26/20 03:00 62 110/67 (81) 94 NIV Bilevel 80.00 05/26/20 02:11 27 94 80.00 05/26/20 02:00 64 37 100/63 (75) 95 NIV Bilevel 80.00 05/26/20 01:00 68 05/26/20 01:00 68 15 117/70 (86) 92 NIV Bilevel 80.00 05/26/20 00:19 36.4 Vapotherm 30.00 100.00 05/26/20 00:00 65 122/69 (86) 96 NIV Bilevel 80.00 05/25/20 23:00 69 28 122/76 (91) 96 NIV Bilevel 80.00 05/25/20 22:00 70 28 109/64 (79) 98 NIV Bilevel 80.00 05/25/20 21:24 NIV Bilevel 80.00 05/25/20 21:17 14 97 90.00 05/25/20 21:00 78 32 121/66 (84) 95 Vapotherm 30.00 100.00 05/25/20 20:04 36.9 85 18 110/62 (78) 86 Vapotherm 30.00 100.00 05/25/20 20:00 84 19 110/62 (78) 89 Vapotherm 25.00 80.00 05/25/20 20:00 92 Vapotherm 30.00 100 05/25/20 19:00 84 05/25/20 19:00 80 37 101/58 (72) 90 Vapotherm 25.00 80.00 05/25/20 18:30 92 Vapotherm 25.00 80 05/25/20 18:00 70 30 103/69 (80) 86 Vapotherm 25.00 80.00 05/25/20 17:00 78 41 103/65 (78) 94 Vapotherm 25.00 80.00 05/25/20 16:00 74 44 109/71 (84) 96 Vapotherm 25.00 80.00 05/25/20 16:00 36.6 05/25/20 15:09 36.5 97 99 80 05/25/20 15:00 101 14 112/65 (81) 98 Vapotherm 25.00 80.00 05/25/20 14:38 100 Vapotherm 25.00 90 05/25/20 14:00 112 24 136/69 (91) 98 Vapotherm 25.00 90.00 05/25/20 13:47 Vapotherm 25.00 90.00 05/25/20 13:21 120 157/94 05/25/20 13:00 120 24 157/94 (115) 96 NIV Bilevel 90.00 05/25/20 12:40 108 05/25/20 12:00 115 28 148/82 (104) 98 NIV Bilevel 90.00 05/25/20 11:00 122 24 156/67 (96) 93 NIV Bilevel 90.00 05/25/20 10:43 100 Vapotherm 40.00 100 05/25/20 10:00 111 18 154/77 (102) 100 NIV Bilevel 90.00 05/25/20 09:00 103 29 141/80 (100) 97 NIV Bilevel 90.00 05/25/20 08:00 36.4 05/25/20 08:00 96 Vapotherm 40.00 100 05/25/20 08:00 105 18 156/82 (106) 91 NIV Bilevel 90.00 05/25/20 07:39 87 Vapotherm 40.00 100 05/25/20 07:00 86 26 141/80 (100) 90 NIV Bilevel 90.00 05/25/20 06:47 68 05/25/20 06:00 80 14 130/79 (96) 88 NIV Bilevel 90.00 05/25/20 05:00 64 8 114/76 (89) 90 NIV Bilevel 90.00 I & O 05/26/20 07:00 Intake Total 1150 ml Output Total 885 ml Balance 265 ml Height & Weight Height: '" Weight: lbs. oz. kg; 28.72 BMI Method: General Appearance: WD/WN, Anxious, Mild Distress HEENT: PERRL/EOMI, Pharynx Normal Neck: Normal Inspection, Supple Respiratory: Decreased Breath Sounds; No Rhonci Cardiovascular: Regular Rate, Rhythm, No Murmur Capillary Refill: Less Than 3 Seconds Gastrointestinal: normal bowel sounds, non tender, soft Extremity: Normal Inspection, Non Tender, No Pedal Edema Neurologic/Psychiatric: Alert, Oriented x3 Skin: Normal Color, Warm/Dry Results Lab Laboratory Tests 05/25/20 03:42 05/26/20 03:28 Assessment/Plan Assessment/Plan Acute worsening respiratory failure due to COVID-19 with ARDS -Vapotherm/BiPAP - now requing 100% -Oxygen -lasix 40mg IV q12 -Labs, and CXR reviewed PNA -Rocephin changed to Zosyn 05/25 -PCT is elevated Hyperglycemia Sliding scale insulin Levemir 10 units daily HTN Lisinopril-- change to Lopressor -PRN hydralazine DVT prophylaxis: theraputic dose Lovenox BERNARDO MOSS DO May 26, 2020 04:58
[2020-05-26] MEDS: inSUlin ASPART (NovoLOG) 1 UNIT/0.01 ML (CHARGE PER UNIT) SC SCH ×4 (06:03→20:03)
--- NOTE | 2020-05-26 07:42 | Diagnostic Imaging Report ---
Indication: COVID infection and dyspnea Single AP view of the chest is obtained with comparison made to study of one day earlier. Mixed groundglass and interstitial densities are seen throughout the lungs with continued left basilar infiltrate. Findings have not changed. There is no evidence of pneumothorax. IMPRESSION: Stable bilateral infiltrates without new abnormality detected. Report was faxed to Jourdan/RN Infection Control by lisandro at 7:42AM. Dictated by: Dictated on workstation # [id number]
[2020-05-26] MEDS: FUROSEMIDE 40 MG/4 ML INJ (LASIX) IVP SCH ×2 (09:54→22:21)
[2020-05-26] MEDS: SENNA W/DOCUSATE (SENOKOT S) TABLET PO PRN (09:55)
[2020-05-26] MEDS: meTOprolol TARTRATE 25 MG (LOPRESSOR) TABLET PO SCH ×2 (09:55→20:03)
[2020-05-26] MEDS: PANTOPRAZOLE 40 MG (PROTONIX) TAB PO SCH (09:55)
[2020-05-26] MEDS: ENOXAPARIN 80 MG/0.8 ML (LOVENOX) SYR SC SCH ×2 (09:56→20:02)
[2020-05-26] MEDS: FLUCONAZOLE 200 MG/100 ML 50 ML, EMPTY IV BAG (PVC) 1 EA IV SCH ×2 (10:10)
--- NOTE | 2020-05-26 14:09 | Physical Therapy Evaluation ---
PT Evaluation-General Medical Diagnosis Admission Date May 17, 2020 at 11:35 Medical Diagnosis: Covid 19 Onset Date: May 17, 2020 Therapy Diagnosis Therapy Diagnosis: debility Precautions Precautions/Isolations: Contact Isolation, Droplet Isolation Referral Physician: Chapito Reason for Referral: Evaluation/Treatment Medical History Pertinent Medical History: HTN Current History EMS secondary to cough and SOA x 3-4 days Reviewed History: Yes Social History Home: Single Level Current Living Status: Alone Prior Prior Level of Function SCALE: Activities may be completed with or without assistive devices. 7-Ysliyjftpg-yvmrcff completes the activity by him/herself with no assistance from a helper. 5-Set-up or Clean-up Assistance-helper sets up or cleans up; patient completes activity. Nerinx assists only prior to or following the activity. 4-Supervision or Touching Assistance-helper provides verbal cues and/or touching/steadying and/or contact guard assistance as patient completes activity. Assistance may be provided throughout the activity or intermittently. 3-Partial/Moderate Assistance-helper does LESS THAN HALF the effort. Nerinx lifts, holds or supports trunk or limbs, but provides less than half the effort. 2-Substantial/Maximal Assistance-helper does MORE THAN HALF the effort. Nerinx lifts or holds trunk or limbs and provides more than half the effort. 0-Nfnymlyrq-lffgfb does ALL the effort. Patient does none of the effort to complete the activity. Or, the assistance of 2 or more helpers is required for the patient to complete the activity. If activity was not attempted, code reason: 7-Patient Refused. 9-Not Applicable-not attempted and the patient did not perform the activity before the current illness, exacerbation or injury. 10-Not Attempted due to Environmental Limitations-(lack of equipment, weather restraints, etc.). 88-Not Attempted due to Medical Conditions or Safety Concerns. Bed Mobility: 6 Transfers (B,C,W/C): 6 Gait: 6 Stairs: 6 Indoor Mobility (Ambulation): Independent Stairs: Independent Prior Devices Use: None PT Evaluation-Current Subjective Patient is very agreeable to participate with therapy. Objective Patient Orientation: Normal For Age Attachments: Oxygen (vapotherm), Maria Catheter, IV ROM/Strength ROM Lower Extremities bilateral LE WFL Strength Lower Extremities 4/5 grossly bilateral LE Integumentary/Posture Integumentary refer to nursing notes Bowel Incontinence: No Bladder Incontinence: Maria Cath Posture WFL Neuromuscular (Tone, Coordination, Reflexes) grossly intact Sensory Vision: Functional Hearing: Functional Transfers Roll Left to Right (QC): 6 Sit to Lying (QC): 6 Lying to Sitting/Side of Bed(Q: 6 Sit to Stand (QC): 4 Chair/Zyy-ai-Ayieh Xfer(QC): 4 SBA for safety Gait Does the Patient Walk?: Yes Mode of Locomotion: Walk Anticipated Mode of Locomotion: Walk Walk 10 feet (QC): 4 Distance: 10' Gait Assistive Device: FWW Comments/Gait Description SBA for safety/limited due to vapotherm Balance Sitting Static: Normal Sitting Dynamic: Normal Standing Static: Normal Standing Dynamic: Normal Treatment SAO2 decreases to 73% on 80% vapotherm with slow recovery. RN adjusted to 40L/100%. Patient stood for several minutes at his request. Patient was not symptomatic of SOA or distress. Assessment/Needs 64 y.o. male, will benefit from skilled PT to address pulmonary function with functional mobility. Rehab Potential: Fair PT Armature Varnisher Goals Armature Varnisher Goals PT [facility] Goals Time Frame: Jun 13, 2020 Roll Left & Right (QC): 6 Sit to Lying (QC): 6 Lying-Sitting on Side/Bed(QC): 6 Sit to Stand (QC): 6 Chair/Der-ht-Ieplk Xfer(QC): 6 Toilet Transfer (QC): 6 Car Transfer (QC): 6 Does the Patient Walk: Yes Walk 10 feet (QC): 6 Walk 50ft with 2 Turns (QC): 6 Walk 150 ft (QC): 6 PT Plan Problem List Problem List: Other (decreased SAO2) Treatment/Plan Treatment Plan: Continue Plan of Care Treatment Plan: Bed Mobility, Education, Functional Activity Jah, Functional Strength, Gait, Safety, Therapeutic Exercise, Transfers Treatment Duration: Jun 13, 2020 Frequency: 5 times per week Estimated Hrs Per Day: .25 hour per day Patient and/or Family Agrees t: Yes Time/GCodes Time In: 1300 Time Out: 1326 Total Billed Treatment Time: 26 Total Billed Treatment 1 visit EVModC 13 min FA 13 min CHIOMA BUCKNER PT May 26, 2020 14:09
[2020-05-27] VITALS (29 sets, daily range): BP systolic 76–171; BP diastolic 54–104
[2020-05-27] MEDS: RT-ALBUTEROL INHALER HFA (VENTOLIN HFA) 18 GM IH SCH ×6 (01:56→21:12)
[2020-05-27 04:07] LABS: BASOPHILS % (AUTO) 0 % (0-10); EOSINOPHILS % (AUTO) 0 % (0-10); HEMATOCRIT 54 % (40-54); LYMPHOCYTES # (AUTO) 2.3 10^3/uL (1.0-4.0); LYMPHOCYTES % (AUTO) 13 % (12-44); MEAN CORPUSCULAR HEMOGLOBIN 28 pg (25-34); MEAN CORPUSCULAR HGB CONC 34 g/dL (32-36); MEAN CORPUSCULAR VOLUME 83 fL (80-99); MEAN PLATELET VOLUME 11.8 fL (9.0-12.2); MONOCYTES # (AUTO) 0.5 10^3/uL (0.0-1.0); MONOCYTES % (AUTO) 3 % (0-12); NEUTROPHILS # (AUTO) 14.5 10^3/uL (1.8-7.8); NEUTROPHILS % (AUTO) 83 % (42-75); PLATELET COUNT 249 10^3/uL (130-400); WHITE BLOOD COUNT 17.4 10^3/uL (4.3-11.0)
[2020-05-27 04:17] LABS: CHLORIDE 102 MMOL/L (98-107); POTASSIUM 4.1 MMOL/L (3.6-5.0); SODIUM 138 MMOL/L (135-145)
[2020-05-27 04:19] LABS: CALCIUM 8.8 MG/DL (8.5-10.1); GLUCOSE 89 MG/DL (70-105)
[2020-05-27 04:21] LABS: CARBON DIOXIDE 23 MMOL/L (21-32)
[2020-05-27 04:23] LABS: CREATININE SERUM 0.87 MG/DL (0.60-1.30); GFR ESTIMATED > 60; PHOSPHORUS 4.1 MG/DL (2.3-4.7)
[2020-05-27 04:24] LABS: BUN/CREATININE RATIO 33
[2020-05-27 04:25] LABS: MAGNESIUM 2.4 MG/DL (1.6-2.4)
[2020-05-27 04:33] LABS: BAND NEUTROPHILS 0 %; BASOPHILS % (MANUAL) 0 %; EOSINOPHILS % (MANUAL) 0 %; LYMPHOCYTES % (MANUAL) 9 %; MONOCYTES % (MANUAL) 0 %; NEUTROPHILS % (MANUAL) 91 %; RBC MORPH NORMAL
[2020-05-27] MEDS: inSUlin ASPART (NovoLOG) 1 UNIT/0.01 ML (CHARGE PER UNIT) SC SCH ×2 (04:41→11:44)
[2020-05-27] MEDS: KCL 20 MEQ TAB (K-DUR) PO SCH ×2 (04:41→09:21)
[2020-05-27] MEDS: POTASSIUM CL 10MEQ/50ML IVPB 50 ML IV SCH (04:41)
[2020-05-27] MEDS: MAGNESIUM 1 GM/100 ML IVPB 100 ML IV SCH (04:41)
[2020-05-27 05:22] LABS: ABG BASE EXCESS 1.3 MMOL/L (-2.5-2.5); ABG OXYGEN SATURATION 89 % (94-100); ABG PCO2 37 MMHG (35-45); ABG PH 7.45 (7.37-7.43); ABG PO2 58 MMHG (79-93); ABG TCO2 26.3 MMOL/L (21.0-31.0)
[2020-05-27 05:25] LABS: ALLENS TEST YES-POS; INSPIRED O2 100%; VENTILATOR NO
--- NOTE | 2020-05-27 05:41 | Pulmonary Progress Note ---
Subjective Time Seen by a Provider: 05:35 Subjective/Events-last exam Pt is doing worse and worsening leukocytosis. Sepsis Event Evaluation Height, Weight, BMI Height: '" Weight: lbs. oz. kg; 28.72 BMI Method: Exam Exam Vital Signs Date Time Temp Pulse Resp B/P (MAP) Pulse Ox O2 Delivery O2 Flow Rate FiO2 05/27/20 04:45 36.0 05/27/20 03:44 NIV Bilevel 100.00 05/27/20 03:00 62 23 126/70 (88) 94 Vapotherm 40.00 90.00 05/27/20 02:00 67 20 114/70 (85) 93 Vapotherm 40.00 90.00 05/27/20 01:57 94 Vapotherm 40.00 90 05/27/20 01:00 68 38 127/83 (98) 94 Vapotherm 40.00 90.00 05/27/20 01:00 68 05/27/20 00:00 70 24 139/83 (101) 92 Vapotherm 40.00 90.00 05/26/20 23:30 62 149/97 (114) 94 Vapotherm 40.00 90.00 05/26/20 22:00 75 16 144/78 (100) 94 Vapotherm 40.00 90.00 05/26/20 21:57 98 Vapotherm 40.00 80 05/26/20 21:00 68 38 117/80 (92) 97 Vapotherm 40.00 90.00 05/26/20 20:00 Vapotherm 40.00 90 05/26/20 19:59 36.0 75 20 114/73 (87) 94 Vapotherm 40.00 90.00 05/26/20 19:30 74 22 105/68 (80) 96 Vapotherm 40.00 100.00 05/26/20 19:00 77 05/26/20 19:00 77 29 144/72 (96) 94 Vapotherm 40.00 100.00 05/26/20 18:26 92 Vapotherm 40.00 90 05/26/20 18:00 80 25 117/77 (90) 93 Vapotherm 40.00 100.00 05/26/20 17:00 76 26 116/74 (88) 98 Vapotherm 40.00 100.00 05/26/20 16:05 36.6 05/26/20 16:00 69 20 101/64 (76) 94 Vapotherm 40.00 100.00 05/26/20 15:00 86 14 137/86 (103) 95 Vapotherm 40.00 100.00 05/26/20 14:36 98 Vapotherm 40.00 100 05/26/20 14:00 87 18 94 Vapotherm 40.00 100.00 05/26/20 13:00 78 27 129/86 (100) 97 Vapotherm 40.00 100.00 05/26/20 13:00 80 05/26/20 12:02 36.7 05/26/20 12:00 68 18 118/76 (90) 93 Vapotherm 40.00 100.00 05/26/20 11:00 82 11 127/94 (105) 93 Vapotherm 40.00 100.00 05/26/20 10:40 90 Vapotherm 25.00 80 05/26/20 10:00 87 18 137/89 (105) 96 Vapotherm 40.00 100.00 05/26/20 09:08 87 16 129/76 (93) 93 Vapotherm 40.00 100.00 05/26/20 08:00 81 25 136/83 (100) 96 Vapotherm 40.00 100.00 05/26/20 08:00 96 Vapotherm 40.00 100 05/26/20 07:15 92 Vapotherm 40.00 90 05/26/20 07:00 78 05/26/20 07:00 78 26 150/83 (105) 95 Vapotherm 40.00 100.00 05/26/20 06:00 74 15 119/71 (87) 97 Vapotherm 40.00 100.00 I & O 05/27/20 07:00 Intake Total 1390 ml Output Total 1650 ml Balance -260 ml Height & Weight Height: '" Weight: lbs. oz. kg; 28.72 BMI Method: General Appearance: WD/WN, Anxious, Mild Distress HEENT: PERRL/EOMI, Pharynx Normal Neck: Normal Inspection, Supple Respiratory: Decreased Breath Sounds; No Rhonci Cardiovascular: Regular Rate, Rhythm, No Murmur Capillary Refill: Less Than 3 Seconds Gastrointestinal: normal bowel sounds, non tender, soft Extremity: Normal Inspection, Non Tender, No Pedal Edema Neurologic/Psychiatric: Alert, Oriented x3 Skin: Normal Color, Warm/Dry Results Lab Laboratory Tests 05/26/20 03:28 05/27/20 03:55 Assessment/Plan Assessment/Plan Acute worsening respiratory failure due to COVID-19 with ARDS -Low threshold for intubation -Vapotherm/BiPAP - now requing 100% BiPAP -Oxygen -lasix 40mg IV q12 -Labs, and CXR reviewed -Pt will not prone PNA -Rocephin changed to Zosyn 05/25 -worsening leukocytosis and respiratory failure. Change Abx to Vanco, Merrem, and Eraxis. Repeat Friedman cultures. D/C Mid Line and culture the tip. -PCT is elevated Hyperglycemia Sliding scale insulin Levemir 10 units daily HTN Lisinopril-- change to Lopressor -PRN hydralazine DVT prophylaxis: theraputic dose Lovenox BERNARDO MOSS DO May 27, 2020 05:40
[2020-05-27] MEDS ORDERED: PHARMACY TO DOSE IV SCH (05:45)
[2020-05-27] MEDS ORDERED: ANIDULAFUNGIN INJECTION 200 MG in NS (IVPB) 250 ML IV ONE (05:45)
[2020-05-27] MEDS ORDERED: NS (IVPB) 500 ML ONE (05:55)
[2020-05-27] MEDS ORDERED: VANCOMYCIN 750 MG/VIAL IV ONE (05:55)
[2020-05-27] MEDS ORDERED: VANCOMYCIN 1000 MG/VIAL ONE (05:55)
[2020-05-27] MEDS ORDERED: VANCOMYCIN 1 GM/NS 250 ML IVPB IV SCH ×2 (06:00)
[2020-05-27] MEDS: MEROPENEM 500 MG in WATER (STERILE) FOR INJECTION 10 ML IV SCH ×4 (06:29→23:47)
[2020-05-27] MEDS ORDERED: LACTATED RINGERS 1,000 ML IV ONE (06:38)
[2020-05-27] MEDS ORDERED: MIDAZOLAM 2 MG/2 ML (VERSED) VIAL ONE (06:48)
[2020-05-27] MEDS ORDERED: PROPOFOL DRIP (ICU) 0 ML IV ONE (06:54)
[2020-05-27] MEDS ORDERED: VANCOMYCIN 750 MG/NS 250 ML IVPB IV SCH ×2 (07:00)
[2020-05-27 07:09] LABS: BILIRUBIN,URINE NEGATIVE (NEGATIVE); CLARITY,URINE CLEAR; COLOR,URINE YELLOW; GLUCOSE, URINE (UA) NEGATIVE (NEGATIVE); KETONES,URINE NEGATIVE (NEGATIVE); LEUKOCYTE ESTERASE ,URINE 1+ (NEGATIVE); NITRITE,URINE NEGATIVE (NEGATIVE); PROTEIN,URINE NEGATIVE (NEGATIVE)
[2020-05-27] MEDS ORDERED: PROPOFOL DRIP (ICU) 100 ML IV ONE ×2 (07:22→08:19)
[2020-05-27] MEDS ORDERED: fentaNYL DRIP PRE-MIX 250 ML IV ONE (07:24)
[2020-05-27 07:27] LABS: BACTERIA,URINE TRACE /HPF; SQUAMOUS EPITHELIAL CELL,UR RARE /HPF; URIC ACID CRYSTALS,URINE RARE /LPF
[2020-05-27 07:30] LABS: YEAST,URINE MODERATE /HPF
[2020-05-27] MEDS: PROPOFOL DRIP (ICU) 100 ML IV SCH ×3 (07:30→20:36)
--- NOTE | 2020-05-27 07:38 | Diagnostic Imaging Report ---
Indication: COVID positive. Shortness of breath. ICU patient. Comparison with 05/26/2020. FINDINGS: There continues to be bilateral alveolar infiltrates more severe in the right perihilar region. These appear stable. Heart is not enlarged. No pneumothorax. Small pleural effusion. IMPRESSION: Stable overall appearance with continued bilateral infiltrates and small pleural effusion. Report was faxed to Jourdan/RN Infection Control by lisandro at 7:38AM. Dictated by: Dictated on workstation # [id number]
--- NOTE | 2020-05-27 08:19 | Diagnostic Imaging Report ---
EXAMINATION: Chest 1 view HISTORY: COVID infection. Intubation. COMPARISON: 05/27/2020. FINDINGS: There has been interval intubation with the tip of the endotracheal tube overlying the trachea approximately 1 cm above the marva. There has been placement of an enteric tube with the tip overlying the stomach. Continued patchy opacities are seen in the mid and lower lungs bilaterally. No pleural effusion or pneumothorax. Stable cardiac silhouette. No acute osseous abnormalities. IMPRESSION: 1. Stable patchy opacities in the mid and lower lungs bilaterally. No pleural effusion. 2. Interval intubation with the tip of the endotracheal tube approximately 1 cm above the marva. Consider pulling back 2 to 3 cm. The enteric tube is in appropriate configuration. Report was faxed to Jourdan/[facility] Infection Control by lisandro at 8:19AM. Dictated by: Dictated on workstation # [id number]
[2020-05-27] MEDS ORDERED: LACTATED RINGERS 2,000 ML IV ONE ×2 (08:37→08:43)
[2020-05-27] MEDS: PANTOPRAZOLE 40 MG (PROTONIX) TAB PO SCH (08:45)
[2020-05-27] MEDS: ENOXAPARIN 80 MG/0.8 ML (LOVENOX) SYR SC SCH ×2 (08:45→20:53)
[2020-05-27] MEDS ORDERED: LACTATED RINGERS 1,000 ML IV SCH (08:45)
[2020-05-27 09:17] LABS: ABG BASE EXCESS -0.1 MMOL/L (-2.5-2.5); ABG OXYGEN SATURATION 79 % (94-100); ABG PCO2 39 MMHG (35-45); ABG PH 7.41 (7.37-7.43); ABG PO2 52 MMHG (79-93); ABG TCO2 25.3 MMOL/L (21.0-31.0)
[2020-05-27 09:18] LABS: ALLENS TEST POSITIVE; INSPIRED O2 100; PATIENT TEMP 36.2; VENTILATOR YES
[2020-05-27] MEDS: meTOprolol TARTRATE 25 MG (LOPRESSOR) TABLET PO SCH ×2 (09:21→20:53)
[2020-05-27] MEDS: FUROSEMIDE 40 MG/4 ML INJ (LASIX) IVP SCH ×2 (09:21→20:53)
[2020-05-27] MEDS: LACTATED RINGERS 1,000 ML IV SCH ×3 (09:51→23:47)
[2020-05-27] MEDS: inSUlin ASPART (NovoLOG) 1 UNIT/0.01 ML (CHARGE PER UNIT) SQ SCH ×3 (11:44→23:47)
--- NOTE | 2020-05-27 11:47 | Diagnostic Imaging Report ---
Portable erect AP chest at 11:30. Indication: ET tube repositioning The exam performed earlier today at 802 noted that the tip of the ET tube was near the marva. In the interval since the prior exam the tip has been slightly retracted and now lies approximately 2.4 cm cephalad to the marva. While this position is adequate the ET tube could be retracted 1 cm more. The overall appearance of the chest itself has not changed significantly. The heart is stable and there are still diffuse alveolar/interstitial pulmonary infiltrates bilaterally. The mediastinum is not widened. The osseous structures are intact. The other supportive tubes and lines seem similar in position. Impression: 1. In the interval since the prior exam the ET tube tip has been slightly retracted and now appears to be in better position. It could still be retracted 1 cm further. 2. The overall appearance of chest itself has not changed significantly otherwise. Report was called to Maki/MICHI [facility] ICU by lisandro at 11:47am. Dictated by: Dictated on workstation # [id number]
[2020-05-27] MEDS ORDERED: ROCURONIUM 10 MG/ML 5 ML SYRINGE IV ONE (12:58)
--- NOTE | 2020-05-27 14:09 | Physical Therapy Progress Note ---
Therapy Progress Note Patient is now intubated and sedated. Will continue to monitor and start when appropriate. ESTEPHANIA DOZIER PT May 27, 2020 14:09
[2020-05-27] MEDS: NOREPINEPHRINE 4 MG/250 ML 250 ML IV SCH ×2 (15:38→22:58)
[2020-05-27] MEDS: fentaNYL DRIP PRE-MIX 250 ML IV SCH ×2 (15:38→23:47)
[2020-05-27] MEDS: VANCOMYCIN 1500 MG/NS 500 ML IVPB IV SCH ×2 (17:38)
[2020-05-28] VITALS (30 sets, daily range): BP systolic 99–143; BP diastolic 59–82
[2020-05-28] MEDS: RT-ALBUTEROL INHALER HFA (VENTOLIN HFA) 18 GM IH SCH ×7 (02:20→22:02)
[2020-05-28] MEDS: PROPOFOL DRIP (ICU) 100 ML IV SCH ×3 (03:30→18:33)
[2020-05-28 03:54] LABS: BASOPHILS % (AUTO) 0 % (0-10); EOSINOPHILS % (AUTO) 0 % (0-10); HEMATOCRIT 42 % (40-54); HEMOGLOBIN 13.9 g/dL (13.3-17.7); LYMPHOCYTES # (AUTO) 0.6 10^3/uL (1.0-4.0); LYMPHOCYTES % (AUTO) 5 % (12-44); MEAN CORPUSCULAR HEMOGLOBIN 28 pg (25-34); MEAN CORPUSCULAR HGB CONC 33 g/dL (32-36); MEAN CORPUSCULAR VOLUME 84 fL (80-99); MEAN PLATELET VOLUME 11.5 fL (9.0-12.2); MONOCYTES # (AUTO) 0.3 10^3/uL (0.0-1.0); MONOCYTES % (AUTO) 2 % (0-12); NEUTROPHILS # (AUTO) 10.5 10^3/uL (1.8-7.8); NEUTROPHILS % (AUTO) 92 % (42-75); PLATELET COUNT 166 10^3/uL (130-400); WHITE BLOOD COUNT 11.4 10^3/uL (4.3-11.0)
[2020-05-28 03:55] LABS: ABG BASE EXCESS 0.2 MMOL/L (-2.5-2.5); ABG OXYGEN SATURATION 86 % (94-100); ABG PCO2 42 MMHG (35-45); ABG PH 7.39 (7.37-7.43); ABG PO2 60 MMHG (79-93)
[2020-05-28 03:56] LABS: ALLENS TEST YES-POS; INSPIRED O2 65%; PATIENT TEMP 36.4; VENTILATOR YES
[2020-05-28 04:05] LABS: CHLORIDE 104 MMOL/L (98-107); POTASSIUM 4.3 MMOL/L (3.6-5.0); SODIUM 137 MMOL/L (135-145)
[2020-05-28 04:06] LABS: CALCIUM 7.6 MG/DL (8.5-10.1)
[2020-05-28 04:07] LABS: GLUCOSE 159 MG/DL (70-105)
[2020-05-28 04:08] LABS: CARBON DIOXIDE 23 MMOL/L (21-32)
[2020-05-28 04:10] LABS: PHOSPHORUS 3.1 MG/DL (2.3-4.7)
[2020-05-28 04:11] LABS: BUN/CREATININE RATIO 31; GFR ESTIMATED > 60
[2020-05-28 04:13] LABS: MAGNESIUM 2.1 MG/DL (1.6-2.4)
[2020-05-28] MEDS: KCL 20 MEQ TAB (K-DUR) PO SCH (04:34)
[2020-05-28] MEDS: inSUlin ASPART (NovoLOG) 1 UNIT/0.01 ML (CHARGE PER UNIT) SQ SCH ×3 (04:34→17:12)
[2020-05-28] MEDS: POTASSIUM CL 10MEQ/50ML IVPB 50 ML IV SCH (04:34)
[2020-05-28] MEDS: MAGNESIUM 1 GM/100 ML IVPB 100 ML IV SCH (04:34)
[2020-05-28] MEDS: NOREPINEPHRINE 4 MG/250 ML 250 ML IV SCH ×2 (05:32→14:13)
[2020-05-28] MEDS: LACTATED RINGERS 1,000 ML IV SCH (05:49)
[2020-05-28] MEDS: VANCOMYCIN 1500 MG/NS 500 ML IVPB IV SCH ×2 (05:49)
[2020-05-28] MEDS: MEROPENEM 500 MG in WATER (STERILE) FOR INJECTION 10 ML IV SCH ×3 (05:49→17:04)
[2020-05-28] MEDS: fentaNYL DRIP PRE-MIX 250 ML IV SCH ×5 (05:57→21:16)
--- NOTE | 2020-05-28 06:08 | Pulmonary Progress Note ---
Subjective Time Seen by a Provider: 06:00 Subjective/Events-last exam Pt is sedated on vent. Sepsis Event Evaluation Height, Weight, BMI Height: '" Weight: lbs. oz. kg; 28.72 BMI Method: Focused Exam Lactate Level 05/27/20 06:10: Lactic Acid Level 2.07*H 05/27/20 08:00: Lactic Acid Level 2.56*H 05/27/20 11:53: Lactic Acid Level 1.66 Exam Exam Vital Signs Date Time Temp Pulse Resp B/P (MAP) Pulse Ox O2 Delivery O2 Flow Rate FiO2 05/28/20 03:30 Mechanical Ventilator 65.00 05/28/20 03:30 87 136/80 05/28/20 02:20 79 24 96 55 05/28/20 02:00 76 22 105/60 (75) 92 Mechanical Ventilator 55.00 05/28/20 01:00 80 25 107/59 (75) 91 Mechanical Ventilator 55.00 05/28/20 01:00 80 05/28/20 00:00 36.4 05/28/20 00:00 83 22 114/70 (85) 95 Mechanical Ventilator 55.00 05/27/20 23:15 Mechanical Ventilator 55.00 05/27/20 23:00 83 23 123/71 (88) 94 Mechanical Ventilator 85.00 05/27/20 22:00 82 25 121/72 (88) 95 Mechanical Ventilator 85.00 05/27/20 21:30 Mechanical Ventilator 85.00 05/27/20 21:12 79 24 96 85 05/27/20 21:00 82 28 122/71 (88) 95 Mechanical Ventilator 90.00 05/27/20 20:36 84 123/69 05/27/20 20:00 Mechanical Ventilator 90 05/27/20 20:00 85 25 129/71 (90) 96 Mechanical Ventilator 90.00 05/27/20 19:00 80 05/27/20 19:00 79 25 116/66 (83) 95 Mechanical Ventilator 90.00 05/27/20 18:20 77 27 96 90 05/27/20 18:10 90.00 05/27/20 18:00 77 24 119/70 (86) 96 Mechanical Ventilator 100.00 05/27/20 17:00 73 24 117/70 (86) 97 Mechanical Ventilator 100.00 05/27/20 16:00 69 25 116/71 (86) 97 Mechanical Ventilator 100.00 05/27/20 15:41 36.5 05/27/20 15:00 69 27 109/67 (81) 96 Mechanical Ventilator 100.00 05/27/20 14:45 69 27 94 100 05/27/20 14:00 64 22 106/65 (79) 95 Mechanical Ventilator 100.00 05/27/20 13:36 61 89/59 05/27/20 13:00 61 89/59 (69) 95 Mechanical Ventilator 100.00 05/27/20 12:36 61 05/27/20 12:00 65 21 105/65 (78) 94 Mechanical Ventilator 100.00 05/27/20 11:52 36.2 05/27/20 11:01 66 29 90 100 05/27/20 11:00 55 16 108/67 (81) 95 Mechanical Ventilator 100.00 05/27/20 10:00 56 26 111/65 (80) 95 Mechanical Ventilator 100.00 05/27/20 09:19 58 90/62 05/27/20 09:18 58 90/62 05/27/20 08:58 36.2 58 24 90/62 (71) 95 Mechanical Ventilator 100.00 05/27/20 08:35 Mechanical Ventilator 100 05/27/20 08:00 67 23 76/54 (61) 95 NIV Bilevel 100.00 05/27/20 07:30 65 105/65 05/27/20 07:27 69 24 95 100 05/27/20 07:00 86 26 171/101 (124) 94 NIV Bilevel 100.00 05/27/20 06:44 82 I & O 05/28/20 07:00 Intake Total 750 ml Output Total 1755 ml Balance -1005 ml Height & Weight Height: '" Weight: lbs. oz. kg; 28.72 BMI Method: General Appearance: WD/WN, Anxious, Mild Distress HEENT: PERRL/EOMI, Pharynx Normal Neck: Normal Inspection, Supple Respiratory: Decreased Breath Sounds; No Rhonci Cardiovascular: Regular Rate, Rhythm, No Murmur Capillary Refill: Less Than 3 Seconds Gastrointestinal: normal bowel sounds, non tender, soft Extremity: Normal Inspection, Non Tender, No Pedal Edema Neurologic/Psychiatric: Alert, Oriented x3 Skin: Normal Color, Warm/Dry Results Lab Laboratory Tests 05/27/20 03:55 05/28/20 03:45 Assessment/Plan Assessment/Plan Acute worsening respiratory failure due to COVID-19 with ARDS -Intubated 05/27 -Continue ventilator -Increase PEEP to 16 -Labs, and CXR reviewed -Prone x 16hrs per day PNA -Vanco, Merrem and Eraxis Hyperglycemia Sliding scale insulin Levemir 10 units daily HTN Lisinopril-- change to Lopressor -PRN hydralazine DVT prophylaxis: theraputic dose Lovenox BERNARDO MOSS DO May 28, 2020 06:08
--- NOTE | 2020-05-28 07:13 | Diagnostic Imaging Report ---
Indication: COVID. Comparison made with prior examination from 05/27/2020 FINDINGS: Lines and tubes are in satisfactory position. There are patchy bilateral pulmonary infiltrates which appears slightly improved. There is no pleural effusion or pneumothorax. The mediastinum is unremarkable. IMPRESSION: Slight improvement in the patchy bilateral pulmonary infiltrates presumably reflecting COVID pneumonia. Some underlying central pulmonary venous congestion cannot be excluded. Report was faxed to [facility]dan/[facility] Infection Control by lisandro at 7:12AM. Dictated by: Dictated on workstation # [id number]
--- NOTE | 2020-05-28 08:06 | Physical Therapy Progress Note ---
Therapy Progress Note Patient is now intubated and sedated. Will continue to monitor and start when appropriate. CHIOMA BUCKNER PT May 28, 2020 08:06
[2020-05-28] MEDS: PANTOPRAZOLE 40 MG (PROTONIX) TAB PO SCH (08:12)
[2020-05-28] MEDS: ENOXAPARIN 80 MG/0.8 ML (LOVENOX) SYR SC SCH ×2 (08:12→21:16)
[2020-05-28] MEDS: ANIDULAFUNGIN INJECTION 100 MG in NS (IVPB) 100 ML IV SCH (08:13)
[2020-05-28] MEDS: meTOprolol TARTRATE 25 MG (LOPRESSOR) TABLET PO SCH ×2 (08:13→21:17)
[2020-05-28] MEDS: FUROSEMIDE 40 MG/4 ML INJ (LASIX) IVP SCH ×2 (08:31→21:17)
[2020-05-28] MEDS ORDERED: TROUGH ORDER-PHARMACY XX NR (17:00)
[2020-05-29] VITALS (30 sets, daily range): BP systolic 101–159; BP diastolic 64–88
[2020-05-29] MEDS: NOREPINEPHRINE 4 MG/250 ML 250 ML IV SCH ×4 (00:23→23:04)
[2020-05-29] MEDS: inSUlin ASPART (NovoLOG) 1 UNIT/0.01 ML (CHARGE PER UNIT) SQ SCH ×5 (00:34→23:36)
[2020-05-29] MEDS: MEROPENEM 500 MG in WATER (STERILE) FOR INJECTION 10 ML IV SCH ×5 (00:34→23:36)
[2020-05-29] MEDS: fentaNYL DRIP PRE-MIX 250 ML IV SCH ×7 (01:45→23:36)
[2020-05-29] MEDS: PROPOFOL DRIP (ICU) 100 ML IV SCH ×7 (01:46→22:53)
[2020-05-29] MEDS: RT-ALBUTEROL INHALER HFA (VENTOLIN HFA) 18 GM IH SCH ×6 (02:00→23:01)
[2020-05-29 02:36] LABS: ABG BASE EXCESS 4.7 MMOL/L (-2.5-2.5); ABG OXYGEN SATURATION 95 % (94-100); ABG PCO2 43 MMHG (35-45); ABG PH 7.44 (7.37-7.43); ABG PO2 73 MMHG (79-93); ABG TCO2 30.2 MMOL/L (21.0-31.0); BASOPHILS % (AUTO) 0 % (0-10); EOSINOPHILS % (AUTO) 0 % (0-10); HEMATOCRIT 41 % (40-54); HEMOGLOBIN 13.4 g/dL (13.3-17.7); LYMPHOCYTES # (AUTO) 0.5 10^3/uL (1.0-4.0); LYMPHOCYTES % (AUTO) 7 % (12-44); MEAN CORPUSCULAR HEMOGLOBIN 28 pg (25-34); MEAN CORPUSCULAR HGB CONC 33 g/dL (32-36); MEAN CORPUSCULAR VOLUME 84 fL (80-99); MEAN PLATELET VOLUME 11.5 fL (9.0-12.2); MONOCYTES # (AUTO) 0.3 10^3/uL (0.0-1.0); MONOCYTES % (AUTO) 4 % (0-12); NEUTROPHILS # (AUTO) 6.3 10^3/uL (1.8-7.8); NEUTROPHILS % (AUTO) 89 % (42-75); PLATELET COUNT 164 10^3/uL (130-400); WHITE BLOOD COUNT 7.1 10^3/uL (4.3-11.0)
[2020-05-29 02:39] LABS: CHLORIDE 103 MMOL/L (98-107); POTASSIUM 4.1 MMOL/L (3.6-5.0); SODIUM 136 MMOL/L (135-145)
[2020-05-29 02:40] LABS: CALCIUM 7.4 MG/DL (8.5-10.1); GLUCOSE 150 MG/DL (70-105)
[2020-05-29 02:41] LABS: TRIGLYCERIDES 275 MG/DL (<150)
[2020-05-29 02:42] LABS: CARBON DIOXIDE 27 MMOL/L (21-32); INSPIRED O2 70%; PATIENT TEMP 36.7; VENTILATOR YES
[2020-05-29 02:44] LABS: CREATININE SERUM 0.63 MG/DL (0.60-1.30); GFR ESTIMATED > 60; PHOSPHORUS 2.2 MG/DL (2.3-4.7)
[2020-05-29 02:45] LABS: BUN/CREATININE RATIO 27
[2020-05-29 02:47] LABS: MAGNESIUM 2.1 MG/DL (1.6-2.4)
--- NOTE | 2020-05-29 05:03 | Pulmonary Progress Note ---
Subjective Time Seen by a Provider: 04:57 Subjective/Events-last exam Pt is still requiring a lot of oxygen. Sepsis Event Evaluation Height, Weight, BMI Height: '" Weight: lbs. oz. kg; 28.72 BMI Method: Focused Exam Lactate Level 05/27/20 06:10: Lactic Acid Level 2.07*H 05/27/20 08:00: Lactic Acid Level 2.56*H 05/27/20 11:53: Lactic Acid Level 1.66 Exam Exam Vital Signs Date Time Temp Pulse Resp B/P (MAP) Pulse Ox O2 Delivery O2 Flow Rate FiO2 05/29/20 03:00 36.7 89 15 159/88 (111) 94 Mechanical Ventilator 100.00 05/29/20 02:30 Mechanical Ventilator 100.00 05/29/20 02:00 60 24 95 70 05/29/20 02:00 36.7 64 23 101/65 (77) 94 Mechanical Ventilator 70.00 05/29/20 01:47 78 168/87 05/29/20 01:46 78 162/86 05/29/20 01:00 36.5 61 134/77 (96) 95 Mechanical Ventilator 70.00 05/29/20 01:00 60 05/29/20 00:00 36.4 63 127/73 (91) 95 Mechanical Ventilator 70.00 05/28/20 23:00 36.2 64 125/74 (91) 94 Mechanical Ventilator 70.00 05/28/20 22:02 61 24 94 70 05/28/20 22:00 36.1 61 131/75 (93) 94 Mechanical Ventilator 70.00 05/28/20 21:26 Mechanical Ventilator 70.00 05/28/20 21:00 35.9 61 140/77 (98) 96 Mechanical Ventilator 80.00 05/28/20 20:00 35.8 61 134/77 (96) 95 Mechanical Ventilator 80.00 05/28/20 20:00 Mechanical Ventilator 80 05/28/20 19:00 66 05/28/20 19:00 Mechanical Ventilator 80.00 05/28/20 19:00 35.7 63 136/78 (97) 96 Mechanical Ventilator 80.00 05/28/20 18:33 60 142/80 05/28/20 18:27 60 24 95 80 05/28/20 18:00 57 24 137/82 (100) 96 Mechanical Ventilator 100.00 05/28/20 17:00 61 23 136/78 (97) 97 Mechanical Ventilator 100.00 05/28/20 16:00 60 19 143/80 (101) 97 Mechanical Ventilator 100.00 05/28/20 15:00 62 23 140/81 (100) 97 Mechanical Ventilator 100.00 05/28/20 14:13 63 134/78 05/28/20 14:00 63 24 138/81 (100) 96 Mechanical Ventilator 100.00 05/28/20 13:56 63 24 96 100 05/28/20 13:00 66 05/28/20 13:00 66 23 132/74 (93) 96 Mechanical Ventilator 100.00 05/28/20 12:32 68 122/71 05/28/20 12:00 68 19 122/71 (88) 96 Mechanical Ventilator 100.00 05/28/20 11:05 Mechanical Ventilator 100.00 05/28/20 11:00 75 9 120/68 (85) 96 Mechanical Ventilator 60.00 05/28/20 10:34 78 24 96 100 05/28/20 10:00 69 22 115/75 (88) 94 Mechanical Ventilator 60.00 05/28/20 09:00 70 22 123/69 (87) 96 Mechanical Ventilator 60.00 05/28/20 08:35 Mechanical Ventilator 60 05/28/20 08:11 36.3 68 21 106/60 (75) 95 Mechanical Ventilator 60.00 05/28/20 07:00 84 23 128/64 (85) 92 Mechanical Ventilator 65.00 05/28/20 07:00 83 05/28/20 06:49 81 24 94 60 05/28/20 06:00 86 23 115/63 (80) 95 Mechanical Ventilator 65.00 05/28/20 05:00 83 26 118/66 (83) 94 Mechanical Ventilator 65.00 I & O 05/29/20 07:00 Intake Total 190 ml Output Total 2650 ml Balance -2460 ml Height & Weight Height: '" Weight: lbs. oz. kg; 28.72 BMI Method: General Appearance: WD/WN, Anxious, Mild Distress HEENT: PERRL/EOMI, Pharynx Normal Neck: Normal Inspection, Supple Respiratory: Decreased Breath Sounds; No Rhonci Cardiovascular: Regular Rate, Rhythm, No Murmur Capillary Refill: Less Than 3 Seconds Gastrointestinal: normal bowel sounds, non tender, soft Extremity: Normal Inspection, Non Tender, No Pedal Edema Neurologic/Psychiatric: Alert, Oriented x3 Skin: Normal Color, Warm/Dry Results Lab Laboratory Tests 05/28/20 03:45 05/29/20 01:45 Assessment/Plan Assessment/Plan Acute worsening respiratory failure due to COVID-19 with ARDS -Intubated 05/27 -Continue ventilator 400/24/ -Dx 05/16 -Increase PEEP to 16 -Labs, and CXR reviewed -Prone x 16hrs per day PNA -Merrem and Eraxis Hyperglycemia Sliding scale insulin Levemir 10 units daily HTN Lisinopril-- change to Lopressor -PRN hydralazine DVT prophylaxis: theraputic dose Lovenox BERNARDO MOSS DO May 29, 2020 05:03
[2020-05-29] MEDS: POTASSIUM CL 10MEQ/50ML IVPB 50 ML IV SCH (05:56)
[2020-05-29] MEDS: MAGNESIUM 1 GM/100 ML IVPB 100 ML IV SCH (05:56)
[2020-05-29] MEDS: KCL 20 MEQ TAB (K-DUR) PO SCH (05:57)
[2020-05-29] MEDS: LACTATED RINGERS 1,000 ML IV SCH (06:03)
[2020-05-29] MEDS ORDERED: SODIUM PHOSPHATE INJ 30 MM in NS (IVPB) 250 ML INJ ONE (07:00)
--- NOTE | 2020-05-29 07:35 | Diagnostic Imaging Report ---
INDICATION: Pneumonia, intubated. COMPARISON: 05/28/2020. FINDINGS: Single view of the chest demonstrates well-positioned support devices. Infiltrates have increased bilaterally. There is no pneumothorax. Trace effusions are suspected. The heart is enlarged. IMPRESSION: Slightly worsening bilateral pulmonary infiltrates. Dictated by: Dictated on workstation # [id number]
--- NOTE | 2020-05-29 07:48 | Physical Therapy Progress Note ---
Therapy Progress Note Patient remains sedated and intubated. PT will continue to monitor patient status. CHIOMA BUCKNER PT May 29, 2020 07:48
[2020-05-29] MEDS: ANIDULAFUNGIN INJECTION 100 MG in NS (IVPB) 100 ML IV SCH (08:13)
[2020-05-29] MEDS: meTOprolol TARTRATE 25 MG (LOPRESSOR) TABLET PO SCH ×2 (08:13→20:08)
[2020-05-29] MEDS: FUROSEMIDE 40 MG/4 ML INJ (LASIX) IVP SCH ×2 (08:13→20:08)
[2020-05-29] MEDS: ENOXAPARIN 80 MG/0.8 ML (LOVENOX) SYR SC SCH ×2 (08:18→20:08)
[2020-05-29] MEDS: PANTOPRAZOLE 40 MG (PROTONIX) TAB PO SCH (08:19)
[2020-05-30] VITALS (29 sets, daily range): BP systolic 107–172; BP diastolic 63–90
[2020-05-30] MEDS: RT-ALBUTEROL INHALER HFA (VENTOLIN HFA) 18 GM IH SCH ×6 (02:38→22:10)
[2020-05-30 03:33] LABS: BASOPHILS % (AUTO) 0 % (0-10); EOSINOPHILS % (AUTO) 1 % (0-10); HEMATOCRIT 40 % (40-54); HEMOGLOBIN 13.2 g/dL (13.3-17.7); LYMPHOCYTES # (AUTO) 0.6 10^3/uL (1.0-4.0); LYMPHOCYTES % (AUTO) 9 % (12-44); MEAN CORPUSCULAR HEMOGLOBIN 28 pg (25-34); MEAN CORPUSCULAR HGB CONC 33 g/dL (32-36); MEAN CORPUSCULAR VOLUME 84 fL (80-99); MEAN PLATELET VOLUME 11.1 fL (9.0-12.2); MONOCYTES # (AUTO) 0.3 10^3/uL (0.0-1.0); MONOCYTES % (AUTO) 4 % (0-12); NEUTROPHILS # (AUTO) 5.7 10^3/uL (1.8-7.8); NEUTROPHILS % (AUTO) 86 % (42-75); PLATELET COUNT 134 10^3/uL (130-400); WHITE BLOOD COUNT 6.6 10^3/uL (4.3-11.0)
[2020-05-30 03:34] LABS: ABG BASE EXCESS 5.3 MMOL/L (-2.5-2.5); ABG OXYGEN SATURATION 95 % (94-100); ABG PCO2 49 MMHG (35-45); ABG PO2 76 MMHG (79-93); ABG TCO2 31.6 MMOL/L (21.0-31.0)
[2020-05-30 03:36] LABS: ALLENS TEST YES-POS; INSPIRED O2 60%; PATIENT TEMP 36.3; VENTILATOR YES
[2020-05-30 03:45] LABS: CHLORIDE 104 MMOL/L (98-107); POTASSIUM 3.5 MMOL/L (3.6-5.0); SODIUM 141 MMOL/L (135-145)
[2020-05-30 03:46] LABS: CALCIUM 7.2 MG/DL (8.5-10.1); GLUCOSE 100 MG/DL (70-105)
[2020-05-30 03:48] LABS: CARBON DIOXIDE 28 MMOL/L (21-32)
[2020-05-30 03:50] LABS: CREATININE SERUM 0.56 MG/DL (0.60-1.30); GFR ESTIMATED > 60; PHOSPHORUS 2.5 MG/DL (2.3-4.7)
[2020-05-30 03:51] LABS: BUN/CREATININE RATIO 30
[2020-05-30 03:53] LABS: MAGNESIUM 2.1 MG/DL (1.6-2.4)
[2020-05-30] MEDS: fentaNYL DRIP PRE-MIX 250 ML IV SCH ×4 (04:40→21:09)
--- NOTE | 2020-05-30 04:54 | Pulmonary Progress Note ---
Subjective Time Seen by a Provider: 04:51 Subjective/Events-last exam Sedated on vent. Sepsis Event Evaluation Height, Weight, BMI Height: '" Weight: lbs. oz. kg; 28.72 BMI Method: Focused Exam Lactate Level 05/27/20 06:10: Lactic Acid Level 2.07*H 05/27/20 08:00: Lactic Acid Level 2.56*H 05/27/20 11:53: Lactic Acid Level 1.66 Exam Exam Vital Signs Date Time Temp Pulse Resp B/P (MAP) Pulse Ox O2 Delivery O2 Flow Rate FiO2 05/30/20 02:00 64 24 95 70 05/30/20 01:00 36.3 57 20 124/73 (90) 94 Mechanical Ventilator 55.00 05/30/20 01:00 57 05/30/20 00:00 36.4 58 23 123/71 (88) 95 Mechanical Ventilator 55.00 05/29/20 23:01 64 24 95 70 05/29/20 23:00 36.3 60 24 120/72 (88) 94 Mechanical Ventilator 55.00 05/29/20 22:55 Mechanical Ventilator 55.00 05/29/20 22:53 64 127/71 05/29/20 22:52 64 127/71 05/29/20 22:00 36.4 62 23 127/70 (89) 94 Mechanical Ventilator 60.00 05/29/20 21:45 Mechanical Ventilator 60.00 05/29/20 21:00 36.3 65 24 126/75 (92) 96 Mechanical Ventilator 65.00 05/29/20 20:16 Mechanical Ventilator 65.00 05/29/20 20:01 36.4 64 24 127/71 (89) 96 Mechanical Ventilator 70.00 05/29/20 20:00 36.4 66 24 129/71 (90) 96 Mechanical Ventilator 70.00 05/29/20 20:00 98 Mechanical Ventilator 70 05/29/20 19:00 70 05/29/20 19:00 36.4 70 23 129/70 (89) 95 Mechanical Ventilator 70.00 05/29/20 18:45 69 24 96 80 05/29/20 18:00 36.6 67 24 129/70 (89) 97 Mechanical Ventilator 80.00 05/29/20 17:00 36.6 65 125/71 (89) 96 Mechanical Ventilator 80.00 05/29/20 16:00 36.6 68 125/70 (88) 97 Mechanical Ventilator 80.00 05/29/20 15:59 70 126/69 05/29/20 15:58 70 126/69 05/29/20 15:00 36.8 74 126/67 (86) 96 Mechanical Ventilator 80.00 05/29/20 14:43 69 24 96 80 05/29/20 14:00 36.8 73 127/71 (89) 95 Mechanical Ventilator 80.00 05/29/20 13:00 37.0 77 11 134/76 (95) 95 Mechanical Ventilator 80.00 05/29/20 12:55 85 05/29/20 12:00 37.1 83 13 137/76 (96) 93 Mechanical Ventilator 80.00 05/29/20 11:00 36.9 81 11 128/67 (87) 94 Mechanical Ventilator 80.00 05/29/20 10:14 70 29 89 80 05/29/20 10:00 36.9 67 13 130/77 (94) 92 Mechanical Ventilator 80.00 05/29/20 09:00 37.0 66 123/76 (92) 93 Mechanical Ventilator 80.00 05/29/20 08:16 68 127/74 05/29/20 08:00 36.9 70 127/72 (90) 93 Mechanical Ventilator 80.00 05/29/20 08:00 94 Mechanical Ventilator 80 05/29/20 07:00 80 05/29/20 07:00 36.8 81 15 142/77 (98) 92 Mechanical Ventilator 80.00 05/29/20 06:24 73 24 92 80 05/29/20 06:17 Mechanical Ventilator 80.00 05/29/20 06:00 36.9 71 19 129/72 (91) 95 Mechanical Ventilator 90.00 05/29/20 05:46 Mechanical Ventilator 90.00 05/29/20 05:00 37.0 62 24 118/71 (87) 95 Mechanical Ventilator 100.00 I & O 05/30/20 07:00 Intake Total 150 ml Output Total 2475 ml Balance -2325 ml Height & Weight Height: '" Weight: lbs. oz. kg; 28.72 BMI Method: General Appearance: WD/WN, Anxious, Mild Distress HEENT: PERRL/EOMI, Pharynx Normal Neck: Normal Inspection, Supple Respiratory: Decreased Breath Sounds; No Rhonci Cardiovascular: Regular Rate, Rhythm, No Murmur Capillary Refill: Less Than 3 Seconds Gastrointestinal: normal bowel sounds, non tender, soft Extremity: Normal Inspection, Non Tender, No Pedal Edema Skin: Normal Color, Warm/Dry Results Lab Laboratory Tests 05/29/20 01:45 05/30/20 03:10 Assessment/Plan Assessment/Plan Acute worsening respiratory failure due to COVID-19 with ARDS -Intubated 05/27 -Continue ventilator 400/24/Peep 16 -Dx 05/16 -Labs, and CXR reviewed -Prone x 16hrs per day PNA -Merrem and Eraxis Hyperglycemia Sliding scale insulin Levemir 10 units daily HTN Lopressor -PRN hydralazine DVT prophylaxis: theraputic dose Lovenox BERNARDO MOSS DO May 30, 2020 04:54
[2020-05-30] MEDS: KCL 20 MEQ TAB (K-DUR) PO SCH (05:14)
[2020-05-30] MEDS: POTASSIUM CL 10MEQ/50ML IVPB 50 ML IV SCH ×6 (05:14→08:49)
[2020-05-30] MEDS: MAGNESIUM 1 GM/100 ML IVPB 100 ML IV SCH (05:14)
[2020-05-30] MEDS: inSUlin ASPART (NovoLOG) 1 UNIT/0.01 ML (CHARGE PER UNIT) SQ SCH ×3 (05:15→18:48)
[2020-05-30] MEDS: PROPOFOL DRIP (ICU) 100 ML IV SCH ×5 (05:50→21:12)
[2020-05-30] MEDS: MEROPENEM 500 MG in WATER (STERILE) FOR INJECTION 10 ML IV SCH ×3 (05:50→17:00)
[2020-05-30] MEDS: LACTATED RINGERS 1,000 ML IV SCH ×2 (05:51→21:14)
--- NOTE | 2020-05-30 07:54 | Diagnostic Imaging Report ---
INDICATION: Covid positive. TECHNIQUE: Single view chest 1:50 AM. CORRELATION STUDY: 05/29/2020 FINDINGS: Endotracheal tube, gastric tube, right-sided central line all remain present. Heart size and mediastinum are unchanged. Bilateral pulmonary opacities, right greater than left, do persist but overall perhaps slightly improved. IMPRESSION: 1. Stable support lines and tubes. 2. Bilateral pulmonary opacities likely reflecting multilobe pneumonia persisting but may be slightly improved. Dictated by: Dictated on workstation # [id number]
[2020-05-30] MEDS: ENOXAPARIN 80 MG/0.8 ML (LOVENOX) SYR SC SCH ×2 (08:33→21:10)
[2020-05-30] MEDS: ANIDULAFUNGIN INJECTION 100 MG in NS (IVPB) 100 ML IV SCH (08:33)
[2020-05-30] MEDS: meTOprolol TARTRATE 25 MG (LOPRESSOR) TABLET PO SCH ×2 (08:33→21:10)
[2020-05-30] MEDS: DOCUSATE SODIUM 10 MG/ML 10 ML UDC (COLACE) PO SCH ×2 (08:33→21:10)
[2020-05-30] MEDS: PANTOPRAZOLE 40 MG (PROTONIX) TAB PO SCH (08:33)
[2020-05-30] MEDS: FUROSEMIDE 40 MG/4 ML INJ (LASIX) IVP SCH ×2 (08:34→21:10)
--- NOTE | 2020-05-30 11:44 | Physical Therapy Progress Note ---
Therapy Progress Note Pt remains sedated and ventilated. Will continue to follow. HERMINIA WRIGHT PT May 30, 2020 11:44
[2020-05-31] VITALS (30 sets, daily range): BP systolic 103–204; BP diastolic 61–105
[2020-05-31] MEDS: inSUlin ASPART (NovoLOG) 1 UNIT/0.01 ML (CHARGE PER UNIT) SQ SCH ×5 (00:09→23:41)
[2020-05-31] MEDS: MEROPENEM 500 MG in WATER (STERILE) FOR INJECTION 10 ML IV SCH ×5 (00:09→23:41)
[2020-05-31] MEDS: RT-ALBUTEROL INHALER HFA (VENTOLIN HFA) 18 GM IH SCH ×6 (01:25→22:50)
[2020-05-31 01:48] LABS: ABG BASE EXCESS 6.3 MMOL/L (-2.5-2.5); ABG OXYGEN SATURATION 95 % (94-100); ABG PCO2 46 MMHG (35-45); ABG PH 7.43 (7.37-7.43); ABG PO2 72 MMHG (79-93); ABG TCO2 32.2 MMOL/L (21.0-31.0); ALLENS TEST YES-POS; INSPIRED O2 80%; PATIENT TEMP 36.2; VENTILATOR YES
[2020-05-31 03:33] LABS: BASOPHILS % (AUTO) 0 % (0-10); EOSINOPHILS # (AUTO) 0.1 10^3/uL (0.0-0.3); EOSINOPHILS % (AUTO) 1 % (0-10); HEMATOCRIT 39 % (40-54); HEMOGLOBIN 13.3 g/dL (13.3-17.7); LYMPHOCYTES # (AUTO) 0.7 10^3/uL (1.0-4.0); LYMPHOCYTES % (AUTO) 9 % (12-44); MEAN CORPUSCULAR HEMOGLOBIN 28 pg (25-34); MEAN CORPUSCULAR HGB CONC 34 g/dL (32-36); MEAN CORPUSCULAR VOLUME 84 fL (80-99); MEAN PLATELET VOLUME 11.8 fL (9.0-12.2); MONOCYTES # (AUTO) 0.2 10^3/uL (0.0-1.0); MONOCYTES % (AUTO) 3 % (0-12); NEUTROPHILS % (AUTO) 87 % (42-75); PLATELET COUNT 141 10^3/uL (130-400); WHITE BLOOD COUNT 8.1 10^3/uL (4.3-11.0)
[2020-05-31 03:35] LABS: CHLORIDE 101 MMOL/L (98-107); POTASSIUM 3.9 MMOL/L (3.6-5.0); SODIUM 135 MMOL/L (135-145)
[2020-05-31 03:36] LABS: CALCIUM 7.1 MG/DL (8.5-10.1); GLUCOSE 100 MG/DL (70-105)
[2020-05-31 03:38] LABS: CARBON DIOXIDE 27 MMOL/L (21-32)
[2020-05-31 03:40] LABS: CREATININE SERUM 0.49 MG/DL (0.60-1.30); GFR ESTIMATED > 60; PHOSPHORUS 2.3 MG/DL (2.3-4.7)
[2020-05-31 03:41] LABS: BUN/CREATININE RATIO 35
--- NOTE | 2020-05-31 05:17 | Pulmonary Progress Note ---
Subjective Time Seen by a Provider: 05:13 Sepsis Event Evaluation Height, Weight, BMI Height: '" Weight: lbs. oz. kg; 28.72 BMI Method: Exam Exam Vital Signs Date Time Temp Pulse Resp B/P (MAP) Pulse Ox O2 Delivery O2 Flow Rate FiO2 05/31/20 04:00 35.9 52 24 110/73 (85) 95 Mechanical Ventilator 70.00 05/31/20 03:00 36.0 53 23 110/68 (82) 94 Mechanical Ventilator 70.00 05/31/20 02:00 36.2 54 24 111/69 (83) 93 Mechanical Ventilator 70.00 05/31/20 01:44 Mechanical Ventilator 70.00 05/31/20 01:25 54 24 95 70 05/31/20 01:08 Mechanical Ventilator 80.00 05/31/20 01:00 36.2 54 23 126/75 (92) 95 Mechanical Ventilator 65.00 05/31/20 00:09 54 05/31/20 00:00 36.3 55 23 125/78 (94) 94 Mechanical Ventilator 65.00 05/30/20 23:00 36.3 57 24 130/76 (94) 95 Mechanical Ventilator 65.00 05/30/20 22:10 56 24 95 65 05/30/20 22:00 36.3 58 23 143/84 (103) 95 Mechanical Ventilator 65.00 05/30/20 21:12 55 147/79 05/30/20 21:11 55 147/59 05/30/20 21:00 36.2 56 23 147/79 (101) 95 Mechanical Ventilator 65.00 05/30/20 20:00 36.2 57 23 141/79 (99) 95 Mechanical Ventilator 65.00 05/30/20 20:00 94 Mechanical Ventilator 65 05/30/20 19:00 36.3 60 24 140/76 (97) 95 Mechanical Ventilator 65.00 05/30/20 18:55 60 05/30/20 18:35 58 24 95 65 05/30/20 18:00 36.5 57 24 134/76 (95) 95 Mechanical Ventilator 65.00 05/30/20 17:00 36.6 57 24 130/74 (92) 95 Mechanical Ventilator 65.00 05/30/20 16:00 36.7 60 24 127/75 (92) 94 Mechanical Ventilator 65.00 05/30/20 15:00 36.9 66 24 128/72 (90) 94 Mechanical Ventilator 65.00 05/30/20 14:20 64 24 94 65 05/30/20 14:03 65 127/65 05/30/20 14:03 65 127/71 05/30/20 14:00 37.2 67 24 127/71 (89) 94 Mechanical Ventilator 65.00 05/30/20 13:00 72 05/30/20 13:00 37.4 72 24 132/74 (93) 93 Mechanical Ventilator 65.00 05/30/20 12:00 37.3 85 24 141/77 (98) 92 Mechanical Ventilator 65.00 05/30/20 11:00 36.8 74 23 172/90 (117) 89 Mechanical Ventilator 65.00 05/30/20 10:09 70 24 93 65 05/30/20 10:00 36.6 69 24 116/69 (85) 93 Mechanical Ventilator 65.00 05/30/20 09:00 36.5 66 24 127/75 (92) 94 Mechanical Ventilator 65.00 05/30/20 08:00 94 Mechanical Ventilator 65 05/30/20 08:00 36.5 65 24 123/66 (85) 94 Mechanical Ventilator 65.00 05/30/20 07:00 65 05/30/20 07:00 36.4 65 24 125/69 (87) 94 Mechanical Ventilator 65.00 05/30/20 06:46 68 24 93 65 05/30/20 06:20 Mechanical Ventilator 65.00 05/30/20 06:00 36.2 64 23 132/66 (88) 90 Mechanical Ventilator 60.00 05/30/20 05:51 64 117/64 05/30/20 05:50 64 117/64 I & O 05/31/20 07:00 Intake Total 1060 ml Output Total 2775 ml Balance -1715 ml Height & Weight Height: '" Weight: lbs. oz. kg; 28.72 BMI Method: General Appearance: WD/WN, Anxious, Mild Distress HEENT: PERRL/EOMI, Pharynx Normal Neck: Normal Inspection, Supple Respiratory: Decreased Breath Sounds; No Rhonci Cardiovascular: Regular Rate, Rhythm, No Murmur Capillary Refill: Less Than 3 Seconds Gastrointestinal: normal bowel sounds, non tender, soft Extremity: Normal Inspection, Non Tender, No Pedal Edema Skin: Normal Color, Warm/Dry Results Lab Laboratory Tests 05/30/20 03:10 05/31/20 03:10 Assessment/Plan Assessment/Plan Acute worsening respiratory failure due to COVID-19 with ARDS -Intubated 05/27 -Continue ventilator 400/24/Peep 16 -Increase PEEP to 18 -Dx 05/16 -Labs, and CXR reviewed -Prone x 16hrs per day -Lasix PNA -Merrem and Eraxis Hyperglycemia Sliding scale insulin D/C Levemir 10 units daily HTN Lopressor -PRN hydralazine DVT prophylaxis: theraputic dose Lovenox BERNARDO MOSS DO May 31, 2020 05:17
[2020-05-31] MEDS: POTASSIUM CL 10MEQ/50ML IVPB 50 ML IV SCH (05:44)
[2020-05-31] MEDS: PROPOFOL DRIP (ICU) 100 ML IV SCH ×5 (05:44→20:16)
[2020-05-31] MEDS: MAGNESIUM 1 GM/100 ML IVPB 100 ML IV SCH (05:45)
[2020-05-31] MEDS: KCL 20 MEQ TAB (K-DUR) PO SCH (05:45)
--- NOTE | 2020-05-31 06:18 | Diagnostic Imaging Report ---
EXAMINATION: Portable erect AP chest at 1:02 AM INDICATION: Respiratory distress FINDINGS: The appearance of the chest has improved since the prior exam of 05/30/2020 as both lungs do seem better aerated. There is still some residual pneumonia/atelectasis bilaterally. The heart is stable in size. The mediastinum is not widened. The osseous structures are intact. The supportive tubes and lines remain in good position. IMPRESSION: The appearance of the chest has improved as both lungs are better aerated. There is still residual pneumonia/atelectasis bilaterally, however. Followup study would be recommended for continued evaluation. Dictated by: Dictated on workstation # [id number]
[2020-05-31] MEDS: fentaNYL DRIP PRE-MIX 250 ML IV SCH ×4 (08:06→22:08)
[2020-05-31] MEDS: PANTOPRAZOLE 40 MG (PROTONIX) VIAL IV SCH (08:10)
[2020-05-31] MEDS: ANIDULAFUNGIN INJECTION 100 MG in NS (IVPB) 100 ML IV SCH (08:11)
[2020-05-31] MEDS: ENOXAPARIN 80 MG/0.8 ML (LOVENOX) SYR SC SCH ×2 (08:11→20:14)
[2020-05-31] MEDS: DOCUSATE SODIUM 10 MG/ML 10 ML UDC (COLACE) PO SCH ×2 (08:11→20:15)
[2020-05-31] MEDS: meTOprolol TARTRATE 25 MG (LOPRESSOR) TABLET PO SCH ×2 (08:24→20:15)
[2020-05-31] MEDS: FUROSEMIDE 40 MG/4 ML INJ (LASIX) IVP SCH ×2 (08:33→20:15)
[2020-05-31] MEDS ORDERED: ROCURONIUM 10 MG/ML 5 ML SYRINGE IV ONE ×2 (12:15→12:30)
[2020-05-31 12:45] LABS: ABG BASE EXCESS 3.1 MMOL/L (-2.5-2.5); ABG OXYGEN SATURATION 97 % (94-100); ABG PCO2 47 MMHG (35-45); ABG PH 7.39 (7.37-7.43); ABG PO2 94 MMHG (79-93); ABG TCO2 29.3 MMOL/L (21.0-31.0)
[2020-05-31 12:48] LABS: ALLENS TEST YES-POS; INSPIRED O2 90%; PATIENT TEMP 36.7; VENTILATOR YES
[2020-05-31] MEDS: hydrALAZINE (APESOLINE) 20 MG/ML VIAL IV PRN (14:22)
[2020-05-31] MEDS: LACTATED RINGERS 1,000 ML IV SCH (20:15)
[2020-06-01] VITALS (33 sets, daily range): BP systolic 118–177; BP diastolic 67–99
[2020-06-01] MEDS: RT-ALBUTEROL INHALER HFA (VENTOLIN HFA) 18 GM IH SCH ×6 (02:22→22:05)
[2020-06-01 03:02] LABS: ABG BASE EXCESS 4.4 MMOL/L (-2.5-2.5); ABG OXYGEN SATURATION 100 % (94-100); ABG PCO2 42 MMHG (35-45); ABG PH 7.44 (7.37-7.43); ABG PO2 139 MMHG (79-93); ABG TCO2 29.7 MMOL/L (21.0-31.0)
[2020-06-01 03:03] LABS: ALLENS TEST YES-POS
[2020-06-01 03:04] LABS: INSPIRED O2 100%; PATIENT TEMP 36.9; VENTILATOR YES
[2020-06-01 03:10] LABS: BASOPHILS % (AUTO) 0 % (0-10); EOSINOPHILS # (AUTO) 0.1 10^3/uL (0.0-0.3); EOSINOPHILS % (AUTO) 1 % (0-10); HEMATOCRIT 43 % (40-54); HEMOGLOBIN 14.1 g/dL (13.3-17.7); LYMPHOCYTES # (AUTO) 0.8 10^3/uL (1.0-4.0); LYMPHOCYTES % (AUTO) 7 % (12-44); MEAN CORPUSCULAR HEMOGLOBIN 27 pg (25-34); MEAN CORPUSCULAR HGB CONC 33 g/dL (32-36); MEAN CORPUSCULAR VOLUME 84 fL (80-99); MONOCYTES # (AUTO) 0.3 10^3/uL (0.0-1.0); MONOCYTES % (AUTO) 3 % (0-12); NEUTROPHILS # (AUTO) 9.6 10^3/uL (1.8-7.8); NEUTROPHILS % (AUTO) 88 % (42-75); PLATELET COUNT 148 10^3/uL (130-400); WHITE BLOOD COUNT 10.9 10^3/uL (4.3-11.0)
[2020-06-01 03:38] LABS: CHLORIDE 102 MMOL/L (98-107); POTASSIUM 3.8 MMOL/L (3.6-5.0); SODIUM 139 MMOL/L (135-145)
[2020-06-01 03:39] LABS: CALCIUM 7.6 MG/DL (8.5-10.1)
[2020-06-01 03:40] LABS: GLUCOSE 111 MG/DL (70-105); TRIGLYCERIDES 232 MG/DL (<150)
[2020-06-01 03:41] LABS: CARBON DIOXIDE 27 MMOL/L (21-32)
[2020-06-01 03:43] LABS: PHOSPHORUS 2.5 MG/DL (2.3-4.7)
[2020-06-01 03:44] LABS: CREATININE SERUM 0.55 MG/DL (0.60-1.30); GFR ESTIMATED > 60
[2020-06-01 03:45] LABS: BUN/CREATININE RATIO 36
[2020-06-01] MEDS: fentaNYL DRIP PRE-MIX 250 ML IV SCH ×5 (04:41→20:52)
[2020-06-01] MEDS: PROPOFOL DRIP (ICU) 100 ML IV SCH ×3 (04:43→18:18)
[2020-06-01] MEDS: KCL 20 MEQ TAB (K-DUR) PO SCH (04:49)
[2020-06-01] MEDS: inSUlin ASPART (NovoLOG) 1 UNIT/0.01 ML (CHARGE PER UNIT) SQ SCH ×4 (04:49→23:08)
[2020-06-01] MEDS: POTASSIUM CL 10MEQ/50ML IVPB 50 ML IV SCH (04:50)
[2020-06-01] MEDS: MAGNESIUM 1 GM/100 ML IVPB 100 ML IV SCH (04:50)
[2020-06-01] MEDS: MEROPENEM 500 MG in WATER (STERILE) FOR INJECTION 10 ML IV SCH ×4 (04:50→23:09)
--- NOTE | 2020-06-01 05:27 | Pulmonary Progress Note ---
Subjective Time Seen by a Provider: 05:22 Subjective/Events-last exam Pt is sedated on vent. Sepsis Event Evaluation Height, Weight, BMI Height: '" Weight: lbs. oz. kg; 28.72 BMI Method: Exam Exam Vital Signs Date Time Temp Pulse Resp B/P (MAP) Pulse Ox O2 Delivery O2 Flow Rate FiO2 06/01/20 05:00 37.2 89 11 174/86 (115) 92 Mechanical Ventilator 70.00 06/01/20 04:45 Mechanical Ventilator 70.00 06/01/20 04:43 72 164/101 06/01/20 04:00 36.9 64 23 143/89 (107) 95 Mechanical Ventilator 80.00 06/01/20 03:10 94 Mechanical Ventilator 80 06/01/20 03:00 36.9 65 28 147/87 (107) 96 Mechanical Ventilator 80.00 06/01/20 02:55 Mechanical Ventilator 80.00 06/01/20 02:22 66 27 90 100 06/01/20 02:00 36.8 64 9 149/86 (107) 94 Mechanical Ventilator 100.00 06/01/20 01:15 Mechanical Ventilator 100.00 06/01/20 01:09 36.7 73 15 163/88 (113) 94 Mechanical Ventilator 60.00 06/01/20 01:07 75 06/01/20 00:00 36.6 67 23 154/78 (103) 93 Mechanical Ventilator 60.00 05/31/20 23:40 94 Mechanical Ventilator 60 05/31/20 23:40 36.5 Mechanical Ventilator 60.00 05/31/20 23:00 36.5 66 24 160/74 (102) 94 Mechanical Ventilator 60.00 05/31/20 22:51 62 24 90 60 05/31/20 22:00 36.4 60 24 145/78 (100) 93 Mechanical Ventilator 60.00 05/31/20 21:00 36.3 59 24 161/82 (108) 94 Mechanical Ventilator 60.00 05/31/20 20:16 58 151/77 05/31/20 20:16 58 151/77 05/31/20 20:00 36.3 57 19 150/77 (101) 94 Mechanical Ventilator 60.00 05/31/20 19:30 96 Mechanical Ventilator 60 05/31/20 19:00 36.4 24 Mechanical Ventilator 60.00 05/31/20 19:00 61 05/31/20 19:00 36.4 61 24 148/79 (102) 97 Mechanical Ventilator 60.00 05/31/20 18:23 60 24 95 70 05/31/20 18:20 Mechanical Ventilator 70.00 05/31/20 18:00 36.6 61 24 159/82 (107) 95 Mechanical Ventilator 80.00 05/31/20 17:00 36.8 59 24 147/79 (101) 98 Mechanical Ventilator 80.00 05/31/20 16:00 37.1 66 24 152/81 (104) 97 Mechanical Ventilator 80.00 05/31/20 15:00 37.2 75 14 159/84 (109) 98 Mechanical Ventilator 80.00 05/31/20 14:28 88 31 96 90 05/31/20 14:22 85 204/103 05/31/20 14:21 85 204/105 05/31/20 14:00 37.1 78 24 168/87 (114) 93 Mechanical Ventilator 80.00 05/31/20 13:00 36.8 77 24 174/95 (121) 94 Mechanical Ventilator 80.00 05/31/20 12:51 87 05/31/20 12:00 36.4 92 23 158/94 (115) 96 Mechanical Ventilator 80.00 05/31/20 11:00 36.0 76 11 154/80 (104) 91 Mechanical Ventilator 80.00 05/31/20 10:13 52 24 90 80 05/31/20 10:00 36.0 51 23 134/76 (95) 90 Mechanical Ventilator 80.00 05/31/20 09:38 Mechanical Ventilator 80.00 05/31/20 09:00 35.9 53 24 118/68 (85) 94 Mechanical Ventilator 60.00 05/31/20 08:30 90 Mechanical Ventilator 60 05/31/20 08:00 35.9 52 23 110/66 (81) 92 Mechanical Ventilator 60.00 05/31/20 07:00 52 05/31/20 07:00 35.8 52 23 112/66 (81) 92 Mechanical Ventilator 60.00 05/31/20 06:36 52 24 93 60 05/31/20 06:00 35.8 52 24 103/67 (79) 92 Mechanical Ventilator 60.00 05/31/20 05:54 Mechanical Ventilator 60.00 05/31/20 05:46 51 116/63 05/31/20 05:44 52 116/68 I & O 06/01/20 07:00 Intake Total 2950 ml Output Total 1545 ml Balance 1405 ml Height & Weight Height: '" Weight: lbs. oz. kg; 28.72 BMI Method: General Appearance: WD/WN, Anxious, Mild Distress HEENT: PERRL/EOMI, Pharynx Normal Neck: Normal Inspection, Supple Respiratory: Decreased Breath Sounds; No Rhonci Cardiovascular: Regular Rate, Rhythm, No Murmur Capillary Refill: Less Than 3 Seconds Gastrointestinal: normal bowel sounds, non tender, soft Extremity: Normal Inspection, Non Tender, No Pedal Edema Skin: Normal Color, Warm/Dry Results Lab Laboratory Tests 05/31/20 03:10 06/01/20 02:45 Assessment/Plan Assessment/Plan Acute worsening respiratory failure due to COVID-19 with ARDS -Intubated 05/27 -Continue ventilator 400/24/ PEEP 18 - Requiring 70% Fi02 -Dx 05/16 -Labs, and CXR reviewed -Prone x 16hrs per day -Lasix PNA -Merrem and Eraxis Hyperglycemia Sliding scale insulin HTN Lopressor -PRN hydralazine DVT prophylaxis: theraputic dose Lovenox Prognosis is poor pt is not responding to aggressive medical treatment. BERNARDO MOSS DO Jun 01, 2020 05:27
--- NOTE | 2020-06-01 07:42 | Diagnostic Imaging Report ---
EXAMINATION: Chest 1 view HISTORY: Intubation COMPARISON: Chest radiograph 05/31/2020 FINDINGS: Heart size and pulmonary vasculature are normal. Endotracheal tube and enteric catheter are unchanged. A right-sided PICC line is present with the tip projecting over the atriocaval junction. Stable patchy interstitial airspace opacities throughout both lungs. Trace blunting of the costophrenic angles. No pneumothorax.. The osseous structures are intact. IMPRESSION: 1. Medical support lines and tubes are unchanged in appropriate position. 2. Stable patchy interstitial and airspace opacities compatible with atelectasis, edema, or pneumonia. 3. Likely trace bilateral pleural effusions. Dictated by: Dictated on workstation # [id number]
[2020-06-01] MEDS: PANTOPRAZOLE 40 MG (PROTONIX) VIAL IV SCH (07:45)
[2020-06-01] MEDS: DOCUSATE SODIUM 10 MG/ML 10 ML UDC (COLACE) PO SCH ×2 (07:45→20:52)
[2020-06-01] MEDS: FUROSEMIDE 40 MG/4 ML INJ (LASIX) IVP SCH ×2 (07:45→20:52)
[2020-06-01] MEDS: ENOXAPARIN 80 MG/0.8 ML (LOVENOX) SYR SC SCH ×2 (07:45→20:52)
[2020-06-01] MEDS: ANIDULAFUNGIN INJECTION 100 MG in NS (IVPB) 100 ML IV SCH (07:48)
[2020-06-01] MEDS: meTOprolol TARTRATE 25 MG (LOPRESSOR) TABLET PO SCH ×2 (07:53→20:53)
--- NOTE | 2020-06-01 07:58 | Physical Therapy Progress Note ---
Therapy Progress Note Patient currently sedated and intubated. PT will continue to monitor patient status. CHIOMA BUCKNER PT Jun 01, 2020 07:58
[2020-06-01] MEDS ORDERED: POTASSIUM PHOSPHATE INJ 15 MM in NS (IVPB) 250 ML IV ONE (08:00)
[2020-06-02] VITALS (30 sets, daily range): BP systolic 97–187; BP diastolic 54–98
[2020-06-02] MEDS: RT-ALBUTEROL INHALER HFA (VENTOLIN HFA) 18 GM IH SCH ×6 (01:18→21:48)
[2020-06-02] MEDS: fentaNYL DRIP PRE-MIX 250 ML IV SCH ×6 (01:27→21:46)
[2020-06-02] MEDS: PROPOFOL DRIP (ICU) 100 ML IV SCH ×7 (01:28→21:47)
[2020-06-02 03:07] LABS: BASOPHILS % (AUTO) 0 % (0-10); EOSINOPHILS # (AUTO) 0.1 10^3/uL (0.0-0.3); EOSINOPHILS % (AUTO) 2 % (0-10); HEMATOCRIT 36 % (40-54); HEMOGLOBIN 12.2 g/dL (13.3-17.7); LYMPHOCYTES # (AUTO) 0.7 10^3/uL (1.0-4.0); LYMPHOCYTES % (AUTO) 10 % (12-44); MEAN CORPUSCULAR HEMOGLOBIN 29 pg (25-34); MEAN CORPUSCULAR HGB CONC 34 g/dL (32-36); MEAN CORPUSCULAR VOLUME 85 fL (80-99); MEAN PLATELET VOLUME 11.6 fL (9.0-12.2); MONOCYTES # (AUTO) 0.2 10^3/uL (0.0-1.0); MONOCYTES % (AUTO) 3 % (0-12); NEUTROPHILS # (AUTO) 5.8 10^3/uL (1.8-7.8); NEUTROPHILS % (AUTO) 84 % (42-75); PLATELET COUNT 137 10^3/uL (130-400); WHITE BLOOD COUNT 6.9 10^3/uL (4.3-11.0)
[2020-06-02 03:08] LABS: ABG BASE EXCESS 5.8 MMOL/L (-2.5-2.5); ABG OXYGEN SATURATION 77 % (94-100); ABG PCO2 55 MMHG (35-45); ABG PH 7.37 (7.37-7.43); ABG PO2 48 MMHG (79-93); ABG TCO2 32.7 MMOL/L (21.0-31.0)
[2020-06-02 03:10] LABS: ALLENS TEST YES-POS; INSPIRED O2 70%; PATIENT TEMP 36.5; VENTILATOR YES
[2020-06-02 03:19] LABS: CHLORIDE 103 MMOL/L (98-107)
[2020-06-02 03:20] LABS: POTASSIUM 4.4 MMOL/L (3.6-5.0); SODIUM 134 MMOL/L (135-145)
[2020-06-02 03:21] LABS: CALCIUM 6.5 MG/DL (8.5-10.1); GLUCOSE 105 MG/DL (70-105)
[2020-06-02 03:23] LABS: CARBON DIOXIDE 23 MMOL/L (21-32)
[2020-06-02 03:25] LABS: CREATININE SERUM 0.49 MG/DL (0.60-1.30); GFR ESTIMATED > 60; PHOSPHORUS 2.6 MG/DL (2.3-4.7)
[2020-06-02 03:26] LABS: BUN/CREATININE RATIO 41
[2020-06-02 03:27] LABS: MAGNESIUM 1.9 MG/DL (1.6-2.4)
--- NOTE | 2020-06-02 06:20 | Pulmonary Progress Note ---
Subjective Time Seen by a Provider: 06:18 Subjective/Events-last exam PT sedated on vent. Sepsis Event Evaluation Height, Weight, BMI Height: '" Weight: lbs. oz. kg; 28.72 BMI Method: Exam Exam Vital Signs Date Time Temp Pulse Resp B/P (MAP) Pulse Ox O2 Delivery O2 Flow Rate FiO2 06/02/20 06:00 37.2 66 23 97/63 (74) 92 Mechanical Ventilator 70.00 06/02/20 05:00 36.9 65 23 104/64 (77) 92 Mechanical Ventilator 70.00 06/02/20 04:00 36.7 63 23 115/65 (82) 92 Mechanical Ventilator 70.00 06/02/20 03:00 36.5 62 23 117/70 (86) 92 Mechanical Ventilator 70.00 06/02/20 03:00 Mechanical Ventilator 70.00 06/02/20 02:00 36.1 60 23 121/80 (94) 89 Mechanical Ventilator 65.00 06/02/20 01:30 Mechanical Ventilator 65.00 06/02/20 01:29 59 153/75 06/02/20 01:28 58 153/75 06/02/20 01:18 58 24 87 50 06/02/20 01:14 35.9 60 23 153/75 (101) 88 Mechanical Ventilator 50.00 06/02/20 01:00 62 06/02/20 00:00 35.6 55 23 154/80 (104) 90 Mechanical Ventilator 50.00 06/01/20 23:00 35.4 55 23 155/83 (107) 91 Mechanical Ventilator 50.00 06/01/20 22:06 53 24 91 50 06/01/20 22:00 35.3 53 24 158/88 (111) 91 Mechanical Ventilator 50.00 06/01/20 21:00 35.4 53 24 158/83 (108) 92 Mechanical Ventilator 50.00 06/01/20 20:00 92 Mechanical Ventilator 50 06/01/20 20:00 35.5 55 23 155/83 (107) 93 Mechanical Ventilator 50.00 06/01/20 19:00 56 06/01/20 19:00 35.8 56 23 158/85 (109) 92 Mechanical Ventilator 50.00 06/01/20 18:26 56 24 93 50 06/01/20 18:18 57 152/82 06/01/20 18:00 35.9 57 23 159/82 (107) 93 Mechanical Ventilator 50.00 06/01/20 17:00 36.1 58 23 155/83 (107) 92 Mechanical Ventilator 50.00 06/01/20 16:32 Mechanical Ventilator 50.00 06/01/20 16:00 36.6 60 24 149/79 (102) 95 Mechanical Ventilator 60.00 06/01/20 15:23 61 24 95 60 06/01/20 15:00 36.6 62 24 147/81 (103) 94 Mechanical Ventilator 60.00 06/01/20 14:00 36.9 71 24 147/82 (103) 94 Mechanical Ventilator 60.00 06/01/20 13:49 37.1 68 98 06/01/20 13:35 Mechanical Ventilator 60.00 06/01/20 13:02 68 06/01/20 13:00 36.9 67 23 151/78 (102) 96 Mechanical Ventilator 70.00 06/01/20 12:37 Mechanical Ventilator 06/01/20 12:26 69 156/86 06/01/20 12:00 37.1 71 149/84 (105) 98 Mechanical Ventilator 70.00 06/01/20 11:23 37.3 73 95 80 06/01/20 11:00 37.0 86 8 159/85 (109) 98 Mechanical Ventilator 70.00 06/01/20 10:14 73 24 95 80 06/01/20 10:00 37.3 67 24 124/67 (86) 95 Mechanical Ventilator 70.00 06/01/20 09:00 37.5 69 23 118/70 (86) 96 Mechanical Ventilator 70.00 06/01/20 08:00 37.7 86 21 129/77 (94) 94 Mechanical Ventilator 70.00 06/01/20 07:48 95 Mechanical Ventilator 80 06/01/20 07:10 104 29 96 80 06/01/20 07:00 37.7 98 12 142/76 (98) 94 Mechanical Ventilator 70.00 06/01/20 06:31 103 I & O 06/02/20 07:00 Intake Total 2205 ml Output Total 1660 ml Balance 545 ml Height & Weight Height: '" Weight: lbs. oz. kg; 28.72 BMI Method: General Appearance: WD/WN, Anxious, Mild Distress HEENT: PERRL/EOMI, Pharynx Normal Neck: Normal Inspection, Supple Respiratory: Decreased Breath Sounds; No Rhonci Cardiovascular: Regular Rate, Rhythm, No Murmur Capillary Refill: Less Than 3 Seconds Gastrointestinal: normal bowel sounds, non tender, soft Extremity: Normal Inspection, Non Tender, No Pedal Edema Skin: Normal Color, Warm/Dry Results Lab Laboratory Tests 06/01/20 02:45 06/02/20 02:40 Assessment/Plan Assessment/Plan Acute worsening respiratory failure due to COVID-19 with ARDS -Intubated 05/27 -Continue ventilator 400/24/ PEEP 18 - Requiring 70% Fi02 -Dx 05/16 -Labs, and CXR reviewed -Prone x 16hrs per day -Lasix PNA -Merrem and Eraxis Hyperglycemia Sliding scale insulin HTN Lopressor -PRN hydralazine DVT prophylaxis: theraputic dose Lovenox Prognosis is poor pt is not responding to aggressive medical treatment. BERNARDO MOSS DO Jun 02, 2020 06:20
[2020-06-02] MEDS: POTASSIUM CL 10MEQ/50ML IVPB 50 ML IV SCH (06:33)
[2020-06-02] MEDS: MAGNESIUM 1 GM/100 ML IVPB 100 ML IV SCH (06:33)
[2020-06-02] MEDS: KCL 20 MEQ TAB (K-DUR) PO SCH (06:33)
[2020-06-02] MEDS: LACTATED RINGERS 1,000 ML IV SCH ×2 (06:33→06:58)
[2020-06-02] MEDS: inSUlin ASPART (NovoLOG) 1 UNIT/0.01 ML (CHARGE PER UNIT) SQ SCH ×3 (06:33→17:54)
[2020-06-02] MEDS: MEROPENEM 500 MG in WATER (STERILE) FOR INJECTION 10 ML IV SCH ×3 (06:58→17:54)
--- NOTE | 2020-06-02 07:50 | Diagnostic Imaging Report ---
History: Intubation, COVID positive COMPARISON: 06/01/2020 TECHNIQUE: Frontal view chest FINDINGS: The endotracheal tube and the right PICC line appear to be in stable position. The NG tube is in stable position. There are airspace opacities bilaterally. Overall aeration appears similar to the prior study. There is no pleural effusion or pneumothorax. The cardiac silhouette is normal in size. IMPRESSION: 1. Stable tubes and lines. Persistent bilateral pulmonary opacities, with stable aeration since the prior exam. Dictated by: Dictated on workstation # [id number]
--- NOTE | 2020-06-02 08:01 | Physical Therapy Progress Note ---
Therapy Progress Note Patient currently sedated and intubated. PT will continue to monitor patient status. CHIOMA BUCKNER PT Jun 02, 2020 08:01
[2020-06-02] MEDS: ANIDULAFUNGIN INJECTION 100 MG in NS (IVPB) 100 ML IV SCH (08:06)
[2020-06-02] MEDS: FUROSEMIDE 40 MG/4 ML INJ (LASIX) IVP SCH ×2 (08:06→20:16)
[2020-06-02] MEDS: DOCUSATE SODIUM 10 MG/ML 10 ML UDC (COLACE) PO SCH ×2 (08:07→20:16)
[2020-06-02] MEDS: MICONAZOLE 2% POWDER (DESENEX AF) 90 GM TOP SCH ×2 (08:07→20:17)
[2020-06-02] MEDS: meTOprolol TARTRATE 25 MG (LOPRESSOR) TABLET PO SCH ×2 (08:07→20:16)
[2020-06-02] MEDS: PANTOPRAZOLE 40 MG (PROTONIX) VIAL IV SCH (08:07)
[2020-06-02] MEDS: ENOXAPARIN 80 MG/0.8 ML (LOVENOX) SYR SC SCH ×2 (08:07→20:16)
[2020-06-02] MEDS: hydrALAZINE (APESOLINE) 20 MG/ML VIAL IV PRN (11:24)
[2020-06-03] VITALS (30 sets, daily range): BP systolic 121–178; BP diastolic 51–85
[2020-06-03] MEDS: MEROPENEM 500 MG in WATER (STERILE) FOR INJECTION 10 ML IV SCH ×4 (00:24→20:39)
[2020-06-03] MEDS: inSUlin ASPART (NovoLOG) 1 UNIT/0.01 ML (CHARGE PER UNIT) SQ SCH ×4 (00:24→17:17)
[2020-06-03] MEDS: RT-ALBUTEROL INHALER HFA (VENTOLIN HFA) 18 GM IH SCH ×6 (02:03→21:32)
[2020-06-03] MEDS: fentaNYL DRIP PRE-MIX 250 ML IV SCH ×6 (02:20→22:00)
[2020-06-03 03:16] LABS: ABG BASE EXCESS 4.9 MMOL/L (-2.5-2.5); ABG OXYGEN SATURATION 96 % (94-100); ABG PCO2 40 MMHG (35-45); ABG PH 7.47 (7.37-7.43); ABG PO2 79 MMHG (79-93); ABG TCO2 30.1 MMOL/L (21.0-31.0)
[2020-06-03 03:18] LABS: BASOPHILS % (AUTO) 0 % (0-10); EOSINOPHILS # (AUTO) 0.2 10^3/uL (0.0-0.3); EOSINOPHILS % (AUTO) 2 % (0-10); HEMATOCRIT 44 % (40-54); HEMOGLOBIN 14.5 g/dL (13.3-17.7); LYMPHOCYTES # (AUTO) 1.4 10^3/uL (1.0-4.0); LYMPHOCYTES % (AUTO) 13 % (12-44); MEAN CORPUSCULAR HEMOGLOBIN 28 pg (25-34); MEAN CORPUSCULAR HGB CONC 33 g/dL (32-36); MEAN CORPUSCULAR VOLUME 84 fL (80-99); MEAN PLATELET VOLUME 10.9 fL (9.0-12.2); MONOCYTES # (AUTO) 0.4 10^3/uL (0.0-1.0); MONOCYTES % (AUTO) 4 % (0-12); NEUTROPHILS # (AUTO) 8.3 10^3/uL (1.8-7.8); NEUTROPHILS % (AUTO) 80 % (42-75); PLATELET COUNT 163 10^3/uL (130-400); WHITE BLOOD COUNT 10.4 10^3/uL (4.3-11.0)
[2020-06-03 03:20] LABS: ALLENS TEST YES-POS; INSPIRED O2 65%; PATIENT TEMP 35.9; VENTILATOR YES
[2020-06-03 03:37] LABS: CHLORIDE 102 MMOL/L (98-107); SODIUM 137 MMOL/L (135-145)
[2020-06-03 03:38] LABS: CALCIUM 7.8 MG/DL (8.5-10.1)
[2020-06-03 03:39] LABS: GLUCOSE 137 MG/DL (70-105)
[2020-06-03 03:40] LABS: CARBON DIOXIDE 27 MMOL/L (21-32)
[2020-06-03 03:43] LABS: CREATININE SERUM 0.61 MG/DL (0.60-1.30); GFR ESTIMATED > 60; PHOSPHORUS 2.3 MG/DL (2.3-4.7)
[2020-06-03 03:44] LABS: BUN/CREATININE RATIO 41
[2020-06-03 03:45] LABS: MAGNESIUM 2.1 MG/DL (1.6-2.4)
[2020-06-03] MEDS: MAGNESIUM 1 GM/100 ML IVPB 100 ML IV SCH (03:58)
[2020-06-03] MEDS: POTASSIUM CL 10MEQ/50ML IVPB 50 ML IV SCH (03:58)
[2020-06-03] MEDS: KCL 20 MEQ TAB (K-DUR) PO SCH (03:58)
--- NOTE | 2020-06-03 04:44 | Pulmonary Progress Note ---
Subjective Time Seen by a Provider: 04:39 Subjective/Events-last exam Pt is sedated on vent. Sepsis Event Evaluation Height, Weight, BMI Height: '" Weight: lbs. oz. kg; 28.72 BMI Method: Exam Exam Vital Signs Date Time Temp Pulse Resp B/P (MAP) Pulse Ox O2 Delivery O2 Flow Rate FiO2 06/03/20 03:45 Mechanical Ventilator 80.00 06/03/20 02:03 52 24 92 55 06/03/20 02:00 Mechanical Ventilator 65.00 06/03/20 01:00 55 06/03/20 00:25 Mechanical Ventilator 55.00 06/03/20 00:00 36.3 56 24 121/69 (86) 94 Mechanical Ventilator 70.00 06/02/20 23:00 36.3 58 10 128/70 (89) 93 Mechanical Ventilator 70.00 06/02/20 22:00 36.5 59 7 130/72 (91) 93 Mechanical Ventilator 70.00 06/02/20 21:55 Mechanical Ventilator 70.00 06/02/20 21:48 61 24 94 80 06/02/20 21:46 60 126/74 06/02/20 21:00 36.5 59 7 133/74 (93) 94 Mechanical Ventilator 80.00 06/02/20 20:30 Mechanical Ventilator 80.00 06/02/20 20:00 36.7 62 19 130/71 (90) 94 Mechanical Ventilator 90.00 06/02/20 20:00 96 Mechanical Ventilator 90 06/02/20 19:00 Mechanical Ventilator 90.00 06/02/20 19:00 65 06/02/20 19:00 36.9 65 15 135/73 (93) 94 Mechanical Ventilator 90.00 06/02/20 18:05 104 24 95 90 06/02/20 18:00 37.1 76 18 154/80 (104) 95 Mechanical Ventilator 100.00 06/02/20 17:00 37.3 82 18 144/75 (98) 94 Mechanical Ventilator 100.00 06/02/20 16:14 Mechanical Ventilator 100.00 06/02/20 16:00 37.4 105 10 179/94 (122) 94 Mechanical Ventilator 65.00 06/02/20 15:52 94 216/103 06/02/20 15:52 94 216/103 06/02/20 15:00 37.4 91 12 184/94 (124) 90 Mechanical Ventilator 65.00 06/02/20 14:00 37.4 94 8 183/98 (126) 91 Mechanical Ventilator 65.00 06/02/20 13:41 87 26 92 65 06/02/20 13:00 37.3 80 8 187/90 (122) 91 Mechanical Ventilator 65.00 06/02/20 12:59 78 06/02/20 12:00 37.3 71 6 167/85 (112) 91 Mechanical Ventilator 65.00 06/02/20 11:00 37.3 71 10 160/83 (108) 87 Mechanical Ventilator 65.00 06/02/20 10:15 Mechanical Ventilator 60.00 06/02/20 10:09 80 27 91 60 06/02/20 10:00 37.4 76 22 160/75 (103) 93 Mechanical Ventilator 70.00 06/02/20 09:00 37.6 68 24 114/64 (81) 92 Mechanical Ventilator 70.00 06/02/20 08:15 92 Mechanical Ventilator 70 06/02/20 08:00 72 108/60 06/02/20 07:59 72 108/60 06/02/20 07:53 37.6 72 23 108/60 (76) 91 Mechanical Ventilator 70.00 06/02/20 07:00 37.5 70 24 109/59 (76) 91 Mechanical Ventilator 70.00 06/02/20 06:50 71 24 91 70 06/02/20 06:47 78 06/02/20 06:00 37.2 66 23 97/63 (74) 92 Mechanical Ventilator 70.00 06/02/20 05:00 36.9 65 23 104/64 (77) 92 Mechanical Ventilator 70.00 I & O 06/03/20 07:00 Intake Total 1190 ml Output Total 2050 ml Balance -860 ml Height & Weight Height: '" Weight: lbs. oz. kg; 28.72 BMI Method: General Appearance: WD/WN, Anxious, Mild Distress HEENT: PERRL/EOMI, Pharynx Normal Neck: Normal Inspection, Supple Respiratory: Decreased Breath Sounds; No Rhonci Cardiovascular: Regular Rate, Rhythm, No Murmur Capillary Refill: Less Than 3 Seconds Gastrointestinal: normal bowel sounds, non tender, soft Extremity: Normal Inspection, Non Tender, No Pedal Edema Skin: Normal Color, Warm/Dry Results Lab Laboratory Tests 06/02/20 02:40 06/03/20 03:00 Assessment/Plan Assessment/Plan Acute worsening respiratory failure due to COVID-19 with ARDS -Intubated 05/27 -Continue ventilator 400/24/ PEEP 18 - Requiring 70% Fi02 -ABG reviewed -Decrease VT to 350 and increase PEEP to 20. Repeat ABG 1hr after change. -Add versed and decrease Propofol -Dx 05/16 -Labs, and CXR reviewed -Prone x 16hrs per day -Lasix PNA -Merrem and Eraxis Hyperglycemia Sliding scale insulin HTN Lopressor -PRN hydralazine DVT prophylaxis: theraputic dose Lovenox Prognosis is poor pt is not responding to aggressive medical treatment. BERNARDO MOSS DO Jun 03, 2020 04:44
[2020-06-03] MEDS: PROPOFOL DRIP (ICU) 100 ML IV SCH ×3 (05:27→15:46)
[2020-06-03] MEDS: MIDAZOLAM DRIP PRE-MIX 100 ML IV SCH ×2 (05:29→15:05)
[2020-06-03 06:47] LABS: ABG OXYGEN SATURATION 99 % (94-100); ABG PCO2 59 MMHG (35-45); ABG PO2 125 MMHG (79-93); ABG TCO2 32.4 MMOL/L (21.0-31.0)
[2020-06-03 06:50] LABS: ABG PH 7.33 (7.37-7.43); ALLENS TEST YES-POS; INSPIRED O2 80%; PATIENT TEMP 36.8; VENTILATOR YES
--- NOTE | 2020-06-03 08:01 | Physical Therapy Progress Note ---
Therapy Progress Note Patient currently sedated and intubated. PT will continue to monitor patient status. ESTEPHANIA DOZIER PT Jun 03, 2020 08:01
[2020-06-03] MEDS: ANIDULAFUNGIN INJECTION 100 MG in NS (IVPB) 100 ML IV SCH (08:09)
[2020-06-03] MEDS: PANTOPRAZOLE 40 MG (PROTONIX) VIAL IV SCH (08:09)
[2020-06-03] MEDS: FUROSEMIDE 40 MG/4 ML INJ (LASIX) IVP SCH ×2 (08:10→20:39)
[2020-06-03] MEDS: ENOXAPARIN 100 MG/1 ML (LOVENOX) SYR SC SCH ×2 (08:10→20:40)
[2020-06-03] MEDS: DOCUSATE SODIUM 10 MG/ML 10 ML UDC (COLACE) PO SCH ×2 (08:10→20:39)
[2020-06-03] MEDS: SENNA W/DOCUSATE (SENOKOT S) TABLET PO PRN (08:10)
[2020-06-03] MEDS: meTOprolol TARTRATE 25 MG (LOPRESSOR) TABLET PO SCH ×2 (08:10→20:40)
[2020-06-03] MEDS: MICONAZOLE 2% POWDER (DESENEX AF) 90 GM TOP SCH ×2 (08:11→15:46)
--- NOTE | 2020-06-03 08:42 | Diagnostic Imaging Report ---
INDICATION: Ventilator support. Time of exam: 2:10 AM Correlation is made with prior chest 1 day earlier. ET tube has tip near the thoracic inlet. Right upper extremity PICC line with tip overlying SVC right atrial junction. Infiltrates throughout the right mid and upper lung field persists. There is infiltrate in the left base. No significant effusion is seen. No pneumothorax. IMPRESSION: No significant change in bilateral pulmonary infiltrates when compared with exam one day earlier. Dictated by: Dictated on workstation # [id number]
[2020-06-03] MEDS: LACTATED RINGERS 1,000 ML IV SCH (14:08)
[2020-06-04] VITALS (31 sets, daily range): BP systolic 111–168; BP diastolic 55–87
[2020-06-04] MEDS: RT-ALBUTEROL INHALER HFA (VENTOLIN HFA) 18 GM IH SCH ×6 (02:07→21:50)
[2020-06-04] MEDS: inSUlin ASPART (NovoLOG) 1 UNIT/0.01 ML (CHARGE PER UNIT) SQ SCH ×5 (02:26→23:24)
[2020-06-04 02:29] LABS: ABG BASE EXCESS 8.2 MMOL/L (-2.5-2.5); ABG OXYGEN SATURATION 76 % (94-100); ABG PCO2 58 MMHG (35-45); ABG PH 7.38 (7.37-7.43); ABG PO2 48 MMHG (79-93); ABG TCO2 35.4 MMOL/L (21.0-31.0)
[2020-06-04] MEDS: MEROPENEM 500 MG in WATER (STERILE) FOR INJECTION 10 ML IV SCH ×4 (02:35→20:20)
[2020-06-04] MEDS: PROPOFOL DRIP (ICU) 100 ML IV SCH ×3 (02:35→19:19)
[2020-06-04] MEDS: fentaNYL DRIP PRE-MIX 250 ML IV SCH ×6 (02:36→21:18)
[2020-06-04 02:37] LABS: ALLENS TEST YES-POS; VENTILATOR YES
[2020-06-04 02:38] LABS: INSPIRED O2 65%; PATIENT TEMP 36.4
[2020-06-04 02:41] LABS: BASOPHILS % (AUTO) 0 % (0-10); EOSINOPHILS # (AUTO) 0.1 10^3/uL (0.0-0.3); EOSINOPHILS % (AUTO) 2 % (0-10); HEMATOCRIT 40 % (40-54); LYMPHOCYTES # (AUTO) 0.9 10^3/uL (1.0-4.0); LYMPHOCYTES % (AUTO) 14 % (12-44); MEAN CORPUSCULAR HEMOGLOBIN 28 pg (25-34); MEAN CORPUSCULAR HGB CONC 33 g/dL (32-36); MEAN CORPUSCULAR VOLUME 85 fL (80-99); MEAN PLATELET VOLUME 10.8 fL (9.0-12.2); MONOCYTES # (AUTO) 0.3 10^3/uL (0.0-1.0); MONOCYTES % (AUTO) 5 % (0-12); NEUTROPHILS # (AUTO) 5.3 10^3/uL (1.8-7.8); NEUTROPHILS % (AUTO) 78 % (42-75); PLATELET COUNT 144 10^3/uL (130-400); WHITE BLOOD COUNT 6.8 10^3/uL (4.3-11.0)
[2020-06-04 03:04] LABS: BUN/CREATININE RATIO 41; CALCIUM 7.7 MG/DL (8.5-10.1); CARBON DIOXIDE 29 MMOL/L (21-32); CHLORIDE 105 MMOL/L (98-107); CREATININE SERUM 0.56 MG/DL (0.60-1.30); GFR ESTIMATED > 60; GLUCOSE 102 MG/DL (70-105); MAGNESIUM 1.8 MG/DL (1.6-2.4); PHOSPHORUS 2.2 MG/DL (2.3-4.7); POTASSIUM 3.6 MMOL/L (3.6-5.0); SODIUM 140 MMOL/L (135-145)
--- NOTE | 2020-06-04 05:28 | Pulmonary Progress Note ---
Subjective Time Seen by a Provider: 05:23 Subjective/Events-last exam Pt is sedated on vent. Sepsis Event Evaluation Height, Weight, BMI Height: '" Weight: lbs. oz. kg; 28.72 BMI Method: Exam Exam Vital Signs Date Time Temp Pulse Resp B/P (MAP) Pulse Ox O2 Delivery O2 Flow Rate FiO2 06/04/20 04:00 71 12 118/60 (79) 91 Mechanical Ventilator 60.00 06/04/20 03:00 71 17 119/55 (76) 92 Mechanical Ventilator 60.00 06/04/20 02:35 73 123/61 06/04/20 02:07 58 24 94 65 06/04/20 02:00 Mechanical Ventilator 65.00 06/04/20 02:00 55 23 124/66 (85) 92 Mechanical Ventilator 60.00 06/04/20 01:00 60 06/04/20 01:00 56 24 123/62 (82) 92 Mechanical Ventilator 60.00 06/04/20 00:00 57 24 123/68 (86) 91 Mechanical Ventilator 60.00 06/03/20 23:00 56 23 127/69 (88) 91 Mechanical Ventilator 60.00 06/03/20 22:00 54 23 132/70 (90) 91 Mechanical Ventilator 60.00 06/03/20 21:33 56 24 92 60 06/03/20 21:00 35.5 55 24 139/78 (98) 91 Mechanical Ventilator 60.00 06/03/20 20:00 96 Mechanical Ventilator 60 06/03/20 20:00 35.4 56 23 125/69 (87) 89 Mechanical Ventilator 60.00 06/03/20 19:00 35.7 56 24 126/68 (87) 89 Mechanical Ventilator 60.00 06/03/20 19:00 60 06/03/20 18:36 57 24 86 50 06/03/20 18:00 36.1 57 23 136/73 (94) 93 Mechanical Ventilator 60.00 06/03/20 17:00 36.2 60 23 140/77 (98) 94 Mechanical Ventilator 60.00 06/03/20 16:00 36.3 58 23 151/79 (103) 95 Mechanical Ventilator 60.00 06/03/20 15:46 58 152/78 06/03/20 15:05 59 24 143/77 06/03/20 15:00 36.6 60 24 143/77 (99) 94 Mechanical Ventilator 60.00 06/03/20 14:57 59 24 96 60 06/03/20 14:15 Mechanical Ventilator 60.00 06/03/20 14:00 36.7 61 23 141/79 (99) 98 Mechanical Ventilator 75.00 06/03/20 13:00 60 24 141/82 (101) 99 Mechanical Ventilator 75.00 06/03/20 12:32 64 06/03/20 12:00 65 24 141/79 (99) 99 Mechanical Ventilator 75.00 06/03/20 11:56 67 24 100 70 06/03/20 11:00 36.7 66 23 143/79 (100) 89 Mechanical Ventilator 75.00 06/03/20 10:00 36.5 63 24 139/78 (98) 91 Mechanical Ventilator 75.00 06/03/20 09:00 36.6 67 17 128/74 (92) 94 Mechanical Ventilator 75.00 06/03/20 08:15 96 Mechanical Ventilator 75 06/03/20 08:00 36.7 66 19 132/74 (93) 92 Mechanical Ventilator 80.00 06/03/20 07:50 67 133/71 06/03/20 07:00 36.8 70 15 132/66 (88) 93 Mechanical Ventilator 80.00 06/03/20 06:37 71 30 94 80 06/03/20 06:36 72 06/03/20 06:00 36.7 71 25 141/77 (98) 92 Mechanical Ventilator 80.00 06/03/20 05:29 67 24 132/74 I & O 06/04/20 07:00 Intake Total 1440 ml Output Total 2225 ml Balance -785 ml Height & Weight Height: '" Weight: lbs. oz. kg; 28.72 BMI Method: General Appearance: WD/WN, Anxious, Mild Distress HEENT: PERRL/EOMI, Pharynx Normal Neck: Normal Inspection, Supple Respiratory: Decreased Breath Sounds; No Rhonci Cardiovascular: Regular Rate, Rhythm, No Murmur Capillary Refill: Less Than 3 Seconds Gastrointestinal: normal bowel sounds, non tender, soft Extremity: Normal Inspection, Non Tender, No Pedal Edema Skin: Normal Color, Warm/Dry Results Lab Laboratory Tests 06/03/20 03:00 06/04/20 02:30 Assessment/Plan Assessment/Plan Acute worsening respiratory failure due to COVID-19 with ARDS -Intubated /3 -Continue ventilator 350/24/ PEEP 20 - Requiring 80% Fi02 -Add versed and decrease Propofol -Dx 05/16 -Labs, and CXR reviewed -Prone x 16hrs per day -Lasix PNA -Merrem and Eraxis Hyperglycemia Sliding scale insulin HTN Lopressor -PRN hydralazine DVT prophylaxis: theraputic dose Lovenox Prognosis is poor pt is not responding to aggressive medical treatment. 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 BERNARDO MOSS DO Jun 04, 2020 05:28
[2020-06-04] MEDS: POTASSIUM CL 10MEQ/50ML IVPB 50 ML IV SCH (05:43)
[2020-06-04] MEDS: MAGNESIUM 1 GM/100 ML IVPB 100 ML IV SCH (05:43)
[2020-06-04] MEDS: KCL 20 MEQ TAB (K-DUR) PO SCH (05:43)
--- NOTE | 2020-06-04 07:28 | Diagnostic Imaging Report ---
EXAMINATION: Chest radiograph, portable AP view. DATE: 06/04/2020 2:42 AM INDICATION: 64-year-old male, intubation. COMPARISON: June 03, 2020. FINDINGS: The endotracheal tube is approximately 3.7 cm above the marva. The nasogastric tube is in the stomach. There is a right-sided PICC line with tip at the level of the lower SVC. Stable overall appearance of the cardiomediastinal silhouette. There is no identified pneumothorax. There is blunting the left lateral costophrenic angle. There are multifocal bilateral alveolar and/or interstitial opacities. IMPRESSION: 1. Grossly unchanged multifocal bilateral lung consolidation. 2. Support lines and tubes as above. Dictated by: Dictated on workstation # [id number]
[2020-06-04] MEDS ORDERED: POTASSIUM PHOSPHATE INJ 30 MM in NS (IVPB) 250 ML IV ONE (08:00)
[2020-06-04] MEDS: FUROSEMIDE 40 MG/4 ML INJ (LASIX) IVP SCH ×2 (08:10→20:20)
[2020-06-04] MEDS: ANIDULAFUNGIN INJECTION 100 MG in NS (IVPB) 100 ML IV SCH (08:10)
[2020-06-04] MEDS: PANTOPRAZOLE 40 MG (PROTONIX) VIAL IV SCH (08:10)
[2020-06-04] MEDS: DOCUSATE SODIUM 10 MG/ML 10 ML UDC (COLACE) PO SCH ×2 (08:10→20:20)
[2020-06-04] MEDS: ENOXAPARIN 100 MG/1 ML (LOVENOX) SYR SC SCH ×2 (08:10→20:20)
[2020-06-04] MEDS: meTOprolol TARTRATE 25 MG (LOPRESSOR) TABLET PO SCH ×2 (08:11→20:21)
[2020-06-04] MEDS: MICONAZOLE 2% POWDER (DESENEX AF) 90 GM TOP SCH ×2 (08:11→20:21)
[2020-06-04] MEDS: SENNA W/DOCUSATE (SENOKOT S) TABLET PO PRN (08:11)
--- NOTE | 2020-06-04 10:26 | Physical Therapy Progress Note ---
Therapy Progress Note Patient currently sedated and intubated. PT will continue to monitor patient status. NAYELI SCALES PT Jun 04, 2020 10:26
[2020-06-04] MEDS: MIDAZOLAM DRIP PRE-MIX 100 ML IV SCH (19:18)
[2020-06-04] MEDS: LACTATED RINGERS 1,000 ML IV SCH (20:21)
[2020-06-05] VITALS (30 sets, daily range): BP systolic 111–165; BP diastolic 61–98
[2020-06-05 01:10] LABS: ABG BASE EXCESS 9.4 MMOL/L (-2.5-2.5); ABG OXYGEN SATURATION 74 % (94-100); ABG PCO2 57 MMHG (35-45); ABG PO2 43 MMHG (79-93); ABG TCO2 36.3 MMOL/L (21.0-31.0); BASOPHILS % (AUTO) 0 % (0-10); NEUTROPHILS % (AUTO) 78 % (42-75); PLATELET COUNT 134 10^3/uL (130-400)
[2020-06-05 01:12] LABS: ALLENS TEST YES-POS; EOSINOPHILS # (AUTO) 0.2 10^3/uL (0.0-0.3); EOSINOPHILS % (AUTO) 2 % (0-10); HEMATOCRIT 38 % (40-54); HEMOGLOBIN 12.1 g/dL (13.3-17.7); LYMPHOCYTES % (AUTO) 14 % (12-44); MEAN CORPUSCULAR HEMOGLOBIN 28 pg (25-34); MEAN CORPUSCULAR HGB CONC 32 g/dL (32-36); MEAN CORPUSCULAR VOLUME 85 fL (80-99); MEAN PLATELET VOLUME 10.8 fL (9.0-12.2); MONOCYTES # (AUTO) 0.3 10^3/uL (0.0-1.0); MONOCYTES % (AUTO) 5 % (0-12); NEUTROPHILS # (AUTO) 5.3 10^3/uL (1.8-7.8); WHITE BLOOD COUNT 6.8 10^3/uL (4.3-11.0)
[2020-06-05 01:13] LABS: INSPIRED O2 60%; PATIENT TEMP 36.4; VENTILATOR NO
[2020-06-05 01:26] LABS: CHLORIDE 104 MMOL/L (98-107); POTASSIUM 3.8 MMOL/L (3.6-5.0); SODIUM 142 MMOL/L (135-145)
[2020-06-05 01:27] LABS: CALCIUM 7.8 MG/DL (8.5-10.1)
[2020-06-05 01:28] LABS: GLUCOSE 89 MG/DL (70-105)
[2020-06-05 01:29] LABS: CARBON DIOXIDE 31 MMOL/L (21-32)
[2020-06-05 01:31] LABS: CREATININE SERUM 0.54 MG/DL (0.60-1.30); GFR ESTIMATED > 60; PHOSPHORUS 2.5 MG/DL (2.3-4.7)
[2020-06-05 01:32] LABS: BUN/CREATININE RATIO 44
[2020-06-05 01:34] LABS: MAGNESIUM 1.9 MG/DL (1.6-2.4)
[2020-06-05] MEDS: RT-ALBUTEROL INHALER HFA (VENTOLIN HFA) 18 GM IH SCH ×6 (01:43→22:10)
[2020-06-05] MEDS: fentaNYL DRIP PRE-MIX 250 ML IV SCH ×6 (01:51→20:58)
[2020-06-05] MEDS: MEROPENEM 500 MG in WATER (STERILE) FOR INJECTION 10 ML IV SCH ×3 (02:05→08:46)
--- NOTE | 2020-06-05 04:58 | Pulmonary Progress Note ---
Subjective Time Seen by a Provider: 04:55 Sepsis Event Evaluation Height, Weight, BMI Height: '" Weight: lbs. oz. kg; 28.72 BMI Method: Exam Exam Vital Signs Date Time Temp Pulse Resp B/P (MAP) Pulse Ox O2 Delivery O2 Flow Rate FiO2 06/05/20 02:00 55 16 124/70 (88) 92 Mechanical Ventilator 80.00 06/05/20 02:00 Mechanical Ventilator 80.00 06/05/20 01:44 57 25 88 60 06/05/20 01:00 52 24 128/68 (88) 94 Mechanical Ventilator 60.00 06/05/20 01:00 51 06/05/20 00:00 52 24 124/66 (85) 93 Mechanical Ventilator 60.00 06/04/20 23:00 52 24 127/68 (87) 93 Mechanical Ventilator 60.00 06/04/20 23:00 36.6 Mechanical Ventilator 60.00 06/04/20 22:00 53 24 130/72 (91) 94 Mechanical Ventilator 60.00 06/04/20 21:50 53 24 94 60 06/04/20 21:00 52 23 141/77 (98) 93 Mechanical Ventilator 60.00 06/04/20 20:00 94 Mechanical Ventilator 60 06/04/20 20:00 55 23 121/68 (85) 94 Mechanical Ventilator 60.00 06/04/20 19:59 36.5 06/04/20 19:19 56 125/69 06/04/20 19:18 54 24 131/70 06/04/20 19:00 60 06/04/20 19:00 57 24 131/70 (90) 94 Mechanical Ventilator 60.00 06/04/20 19:00 36.2 Mechanical Ventilator 60.00 06/04/20 18:17 56 24 94 60 06/04/20 18:00 58 23 124/68 (86) 94 Mechanical Ventilator 65.00 06/04/20 17:00 61 24 122/68 (86) 95 Mechanical Ventilator 65.00 06/04/20 16:00 63 24 124/66 (85) 95 Mechanical Ventilator 65.00 06/04/20 15:00 67 24 128/71 (90) 95 Mechanical Ventilator 65.00 06/04/20 14:45 Mechanical Ventilator 65.00 06/04/20 14:40 65 24 95 65 06/04/20 14:00 65 24 134/73 (93) 95 Mechanical Ventilator 80.00 06/04/20 13:35 37.0 63 93 80 06/04/20 13:00 66 23 141/73 (95) 93 Mechanical Ventilator 80.00 06/04/20 13:00 66 06/04/20 12:00 64 21 147/82 (103) 92 Mechanical Ventilator 80.00 06/04/20 11:31 66 147/77 06/04/20 11:00 66 24 168/87 (114) 91 Mechanical Ventilator 80.00 06/04/20 10:03 75 30 93 80 06/04/20 10:00 75 21 141/76 (97) 91 Mechanical Ventilator 80.00 06/04/20 09:00 72 113/66 (82) 91 Mechanical Ventilator 80.00 06/04/20 08:40 91 Mechanical Ventilator 80 06/04/20 08:00 71 24 133/68 (89) 92 Mechanical Ventilator 80.00 06/04/20 07:29 72 26 92 80 06/04/20 07:25 37.0 06/04/20 07:00 70 23 113/65 (81) 92 Mechanical Ventilator 80.00 06/04/20 07:00 70 06/04/20 06:00 70 17 129/62 (84) 92 Mechanical Ventilator 80.00 06/04/20 05:00 70 10 125/65 (85) 92 Mechanical Ventilator 80.00 I & O 06/05/20 07:00 Intake Total 2280 ml Output Total 2090 ml Balance 190 ml Height & Weight Height: '" Weight: lbs. oz. kg; 28.72 BMI Method: General Appearance: WD/WN, Anxious, Mild Distress HEENT: PERRL/EOMI, Pharynx Normal Neck: Normal Inspection, Supple Respiratory: Decreased Breath Sounds; No Rhonci Cardiovascular: Regular Rate, Rhythm, No Murmur Capillary Refill: Less Than 3 Seconds Gastrointestinal: normal bowel sounds, non tender, soft Extremity: Normal Inspection, Non Tender, No Pedal Edema Skin: Normal Color, Warm/Dry Results Lab Laboratory Tests 06/04/20 02:30 06/05/20 01:00 Assessment/Plan Assessment/Plan Acute worsening respiratory failure due to COVID-19 with ARDS -Intubated 05/27 -Continue ventilator 350/24/ PEEP 20 - Requiring 80% Fi02 -Add versed and decrease Propofol -Dx 05/16 -Labs, and CXR reviewed -Prone x 16hrs per day -Lasix 40 BID Bradycardia -Decrease decadron to 3mg daily then continue to taper PNA -Merrem and Eraxis Hyperglycemia Sliding scale insulin HTN Lopressor -PRN hydralazine DVT prophylaxis: theraputic dose Lovenox Prognosis is poor pt is not responding to aggressive medical treatment. 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 BERNARDO MOSS DO Jun 05, 2020 04:58
[2020-06-05] MEDS: PROPOFOL DRIP (ICU) 100 ML IV SCH ×3 (05:20→23:21)
[2020-06-05] MEDS: POTASSIUM CL 10MEQ/50ML IVPB 50 ML IV SCH (05:21)
[2020-06-05] MEDS: MAGNESIUM 1 GM/100 ML IVPB 100 ML IV SCH (05:21)
[2020-06-05] MEDS: inSUlin ASPART (NovoLOG) 1 UNIT/0.01 ML (CHARGE PER UNIT) SQ SCH ×4 (05:22→23:21)
[2020-06-05] MEDS: KCL 20 MEQ TAB (K-DUR) PO SCH (05:22)
--- NOTE | 2020-06-05 07:36 | Diagnostic Imaging Report ---
INDICATION: Respiratory difficulty. Comparison made with prior examination of 06/04/2020. FINDINGS: The heart size is normal. There is some venous congestion. There are patchy bilateral groundglass infiltrates. No pleural effusion or pneumothorax. Lines and tubes are in satisfactory position. IMPRESSION: Diffuse patchy bilateral groundglass infiltrates with some central pulmonary venous congestion. Dictated by: Dictated on workstation # [id number]
[2020-06-05] MEDS: ANIDULAFUNGIN INJECTION 100 MG in NS (IVPB) 100 ML IV SCH (08:36)
[2020-06-05] MEDS: meTOprolol TARTRATE 25 MG (LOPRESSOR) TABLET PO SCH ×2 (08:37→19:50)
[2020-06-05] MEDS: FUROSEMIDE 40 MG/4 ML INJ (LASIX) IVP SCH ×2 (08:37→19:51)
[2020-06-05] MEDS: PANTOPRAZOLE 40 MG (PROTONIX) VIAL IV SCH (08:37)
[2020-06-05] MEDS: DOCUSATE SODIUM 10 MG/ML 10 ML UDC (COLACE) PO SCH ×2 (08:37→19:51)
[2020-06-05] MEDS: MICONAZOLE 2% POWDER (DESENEX AF) 90 GM TOP SCH ×2 (08:38→19:51)
[2020-06-05] MEDS: ENOXAPARIN 100 MG/1 ML (LOVENOX) SYR SC SCH ×2 (08:38→19:51)
--- NOTE | 2020-06-05 10:53 | Physical Therapy Progress Note ---
Therapy Progress Note Pt remains on mechanical ventilator and sedated. Will continue to follow. HERMINIA WRIGHT PT Jun 05, 2020 10:53
[2020-06-06] VITALS (31 sets, daily range): BP systolic 117–162; BP diastolic 64–81
[2020-06-06] MEDS: LACTATED RINGERS 1,000 ML IV SCH (00:48)
[2020-06-06] MEDS: fentaNYL DRIP PRE-MIX 250 ML IV SCH ×7 (00:48→21:53)
[2020-06-06] MEDS: RT-ALBUTEROL INHALER HFA (VENTOLIN HFA) 18 GM IH SCH ×6 (02:06→21:58)
[2020-06-06] MEDS: MIDAZOLAM DRIP PRE-MIX 100 ML IV SCH (03:23)
[2020-06-06 03:51] LABS: BASOPHILS % (AUTO) 0 % (0-10); EOSINOPHILS # (AUTO) 0.2 10^3/uL (0.0-0.3); EOSINOPHILS % (AUTO) 2 % (0-10); HEMATOCRIT 40 % (40-54); LYMPHOCYTES # (AUTO) 0.7 10^3/uL (1.0-4.0); LYMPHOCYTES % (AUTO) 9 % (12-44); MEAN CORPUSCULAR HEMOGLOBIN 28 pg (25-34); MEAN CORPUSCULAR HGB CONC 32 g/dL (32-36); MEAN CORPUSCULAR VOLUME 86 fL (80-99); MEAN PLATELET VOLUME 11.1 fL (9.0-12.2); MONOCYTES # (AUTO) 0.3 10^3/uL (0.0-1.0); MONOCYTES % (AUTO) 4 % (0-12); NEUTROPHILS # (AUTO) 6.6 10^3/uL (1.8-7.8); NEUTROPHILS % (AUTO) 84 % (42-75); PLATELET COUNT 152 10^3/uL (130-400); WHITE BLOOD COUNT 7.8 10^3/uL (4.3-11.0)
[2020-06-06 04:04] LABS: ABG BASE EXCESS 9.5 MMOL/L (-2.5-2.5); ABG OXYGEN SATURATION 83 % (94-100); ABG PCO2 52 MMHG (35-45); ABG PH 7.43 (7.37-7.43); ABG PO2 50 MMHG (79-93); ABG TCO2 35.8 MMOL/L (21.0-31.0)
[2020-06-06 04:04] LABS: CHLORIDE 101 MMOL/L (98-107); POTASSIUM 3.5 MMOL/L (3.6-5.0); SODIUM 141 MMOL/L (135-145)
[2020-06-06 04:05] LABS: CALCIUM 7.9 MG/DL (8.5-10.1)
[2020-06-06 04:05] LABS: ALLENS TEST YES-POS; INSPIRED O2 80%; PATIENT TEMP 36.4; VENTILATOR YES
[2020-06-06 04:06] LABS: GLUCOSE 109 MG/DL (70-105)
[2020-06-06 04:07] LABS: CARBON DIOXIDE 31 MMOL/L (21-32)
[2020-06-06 04:09] LABS: PHOSPHORUS 2.2 MG/DL (2.3-4.7)
[2020-06-06 04:10] LABS: CREATININE SERUM 0.53 MG/DL (0.60-1.30); GFR ESTIMATED > 60
[2020-06-06 04:11] LABS: BUN/CREATININE RATIO 38
[2020-06-06 04:12] LABS: MAGNESIUM 1.8 MG/DL (1.6-2.4)
[2020-06-06] MEDS: POTASSIUM CL 10MEQ/50ML IVPB 50 ML IV SCH ×3 (04:29→06:01)
[2020-06-06] MEDS: MAGNESIUM 1 GM/100 ML IVPB 100 ML IV SCH (06:01)
[2020-06-06] MEDS: inSUlin ASPART (NovoLOG) 1 UNIT/0.01 ML (CHARGE PER UNIT) SQ SCH ×4 (06:01→23:39)
[2020-06-06] MEDS: KCL 20 MEQ TAB (K-DUR) PO SCH (06:01)
[2020-06-06] MEDS: PROPOFOL DRIP (ICU) 100 ML IV SCH ×3 (06:01→23:47)
[2020-06-06] MEDS: FUROSEMIDE 40 MG/4 ML INJ (LASIX) IVP SCH ×2 (08:14→20:18)
[2020-06-06] MEDS: PANTOPRAZOLE 40 MG (PROTONIX) VIAL IV SCH (08:14)
[2020-06-06] MEDS: MICONAZOLE 2% POWDER (DESENEX AF) 90 GM TOP SCH ×2 (08:14→21:22)
[2020-06-06] MEDS: ENOXAPARIN 100 MG/1 ML (LOVENOX) SYR SC SCH ×2 (08:15→20:18)
[2020-06-06] MEDS: DOCUSATE SODIUM 10 MG/ML 10 ML UDC (COLACE) PO SCH ×2 (08:15→20:18)
[2020-06-06] MEDS: meTOprolol TARTRATE 25 MG (LOPRESSOR) TABLET PO SCH ×2 (08:17→20:18)
--- NOTE | 2020-06-06 08:45 | Diagnostic Imaging Report ---
INDICATION: Respiratory difficulty. Comparison is made with prior examination from 06/05/2020. FINDINGS: Heart size is normal. There is some venous congestion. There are patchy bilateral pulmonary infiltrates. There is no pleural effusion or pneumothorax. Endotracheal tube and PICC line remain in place. IMPRESSION: Diffuse bilateral patchy pulmonary infiltrates. Central pulmonary venous congestion. Dictated by: Dictated on workstation # [id number]
--- NOTE | 2020-06-06 10:17 | Progress Note - Hospitalist ---
Subjective HPI/CC On Admission Date Seen by Provider: Jun 06, 2020 Time Seen by Provider: 10:11 Phillip Perkins is a 64-year-old male with no known past medical history who presented with shortness of breath. He started getting sick about a week ago. He has been having a cough. He denies any fevers or chills. He denies any changes in his sense of taste or smell. He denies any nausea or vomiting. He denies any diarrhea. He reports having some chest pain and with coughing. He does not follow with a doctor. He says he lost a lot of weight recently. He says he has been told that he had high blood pressure before. He has no known history of diabetes. Subjective/Events-last exam Pt remains intubated and sedated. No ROS possible. Niece at bedside. Discussed plan for essentially a time trial over the weekend and then family to come together to make a decision regarding goals of care and she was agreeable. Objective Exam Vital Signs Vital Signs Date Time Temp Pulse Resp B/P (MAP) Pulse Ox O2 Delivery O2 Flow Rate FiO2 06/06/20 09:00 71 24 133/76 (95) 93 Mechanical Ventilator 70.00 06/06/20 08:00 70 06/06/20 07:45 36.2 Capillary Refill : Less Than 3 Seconds General Appearance: Other (ill appearing, sedated on vent) HEENT: Other (skin breakdown of nose noted) Respiratory: Rhonci, Other (on vent) Cardiovascular: Regular Rate, Rhythm, No Murmur Gastrointestinal: Normal Bowel Sounds, Soft Genital/Rectal: Other (meng in place) Neurologic/Psychiatric: Other (sedated, appears comfortable) Results/Procedures Lab Laboratory Tests 06/06/20 03:24 Patient resulted labs reviewed. Imaging: Reviewed Imaging Report Assessment/Plan Assessment and Plan Assess & Plan/Chief Complaint Acute respiratory failure due to COVID-19 with ARDS -Intubated 05/27 -Continue ventilator, TeleICu managing, remains on PEEP of 20 and fio2 between 70-100% -Prone x 16hrs per day -Lasix 40 BID - On decadron wean Bradycardia - Heart rate in the 70-80s PNA -Completed course of Merrem and Eraxis 06/05 Hyperglycemia Well controlled HTN Lopressor -PRN hydralazine DVT prophylaxis: therapeutic dose Lovenox GI ppx: Protonix RADHA,CARMITA M MD Jun 06, 2020 10:17
[2020-06-06] MEDS: METOCLOPRAMIDE INJ 10 MG/2 ML (REGLAN) IVP SCH ×3 (11:28→23:46)
--- NOTE | 2020-06-06 12:08 | Physical Therapy Progress Note ---
Therapy Progress Note Patient remains intubated. Will continue to follow. MATY FINLEY PT Jun 06, 2020 12:08
[2020-06-07] VITALS (30 sets, daily range): BP systolic 99–186; BP diastolic 61–87
[2020-06-07] MEDS: RT-ALBUTEROL INHALER HFA (VENTOLIN HFA) 18 GM IH SCH ×6 (01:22→22:02)
[2020-06-07] MEDS: MIDAZOLAM DRIP PRE-MIX 100 ML IV SCH (03:16)
[2020-06-07] MEDS: fentaNYL DRIP PRE-MIX 250 ML IV SCH ×6 (03:16→22:24)
[2020-06-07 03:59] LABS: ABG BASE EXCESS 8.6 MMOL/L (-2.5-2.5); ABG OXYGEN SATURATION 97 % (94-100); ABG PCO2 52 MMHG (35-45); ABG PH 7.42 (7.37-7.43); ABG PO2 82 MMHG (79-93); ABG TCO2 34.9 MMOL/L (21.0-31.0)
[2020-06-07 04:02] LABS: ALLENS TEST YES-POS; INSPIRED O2 80%; PATIENT TEMP 36.6; VENTILATOR YES
[2020-06-07] MEDS ORDERED: meTOprolol 5 MG/5 ML (LOPRESSOR) VIAL ONE (04:07)
[2020-06-07 04:08] LABS: BASOPHILS % (AUTO) 0 % (0-10); EOSINOPHILS # (AUTO) 0.2 10^3/uL (0.0-0.3); EOSINOPHILS % (AUTO) 2 % (0-10); HEMATOCRIT 42 % (40-54); HEMOGLOBIN 13.5 g/dL (13.3-17.7); LYMPHOCYTES # (AUTO) 0.9 10^3/uL (1.0-4.0); LYMPHOCYTES % (AUTO) 10 % (12-44); MEAN CORPUSCULAR HEMOGLOBIN 28 pg (25-34); MEAN CORPUSCULAR HGB CONC 33 g/dL (32-36); MEAN CORPUSCULAR VOLUME 85 fL (80-99); MEAN PLATELET VOLUME 11.7 fL (9.0-12.2); MONOCYTES # (AUTO) 0.4 10^3/uL (0.0-1.0); MONOCYTES % (AUTO) 5 % (0-12); NEUTROPHILS # (AUTO) 7.3 10^3/uL (1.8-7.8); NEUTROPHILS % (AUTO) 83 % (42-75); PLATELET COUNT 171 10^3/uL (130-400); WHITE BLOOD COUNT 8.9 10^3/uL (4.3-11.0)
[2020-06-07] MEDS ORDERED: meTOprolol 5 MG/5 ML (LOPRESSOR) VIAL IV ONE (04:15)
[2020-06-07 04:23] LABS: CHLORIDE 97 MMOL/L (98-107); POTASSIUM 3.6 MMOL/L (3.6-5.0); SODIUM 140 MMOL/L (135-145)
[2020-06-07 04:25] LABS: CALCIUM 8.3 MG/DL (8.5-10.1); GLUCOSE 131 MG/DL (70-105)
[2020-06-07 04:27] LABS: CARBON DIOXIDE 30 MMOL/L (21-32)
[2020-06-07 04:29] LABS: CREATININE SERUM 0.56 MG/DL (0.60-1.30); GFR ESTIMATED > 60; PHOSPHORUS 2.2 MG/DL (2.3-4.7)
[2020-06-07 04:30] LABS: BUN/CREATININE RATIO 32
[2020-06-07 04:32] LABS: MAGNESIUM 1.7 MG/DL (1.6-2.4)
[2020-06-07] MEDS: POTASSIUM CL 10MEQ/50ML IVPB 50 ML IV SCH (04:43)
[2020-06-07] MEDS: MAGNESIUM 1 GM/100 ML IVPB 100 ML IV SCH ×3 (04:43→04:47)
[2020-06-07] MEDS: KCL 20 MEQ TAB (K-DUR) PO SCH (04:43)
[2020-06-07] MEDS: inSUlin ASPART (NovoLOG) 1 UNIT/0.01 ML (CHARGE PER UNIT) SQ SCH ×3 (05:01→18:06)
[2020-06-07] MEDS: METOCLOPRAMIDE INJ 10 MG/2 ML (REGLAN) IVP SCH ×3 (05:16→18:06)
[2020-06-07] MEDS: LACTATED RINGERS 1,000 ML IV SCH (05:17)
[2020-06-07] MEDS ORDERED: POTASSIUM PHOSPHATE INJ 15 MM in NS (IVPB) 250 ML IV ONE (07:00)
--- NOTE | 2020-06-07 07:46 | Diagnostic Imaging Report ---
INDICATION: Ventilator support. Time of exam: 1:53 AM Correlation is made with prior chest from one day earlier. ET tube has tip above the marva. There is bilateral infiltrates, greatest in the left base. This is similar to perhaps slightly increased when compared with yesterday. No effusion or pneumothorax is identified. IMPRESSION: Bilateral pulmonary infiltrates. Dictated by: Dictated on workstation # [id number]
[2020-06-07] MEDS: dilTIAZem DRIP PRE-MIX 125 ML IV SCH ×2 (07:58→18:06)
[2020-06-07] MEDS: PROPOFOL DRIP (ICU) 100 ML IV SCH ×2 (07:59→18:05)
[2020-06-07] MEDS: FUROSEMIDE 40 MG/4 ML INJ (LASIX) IVP SCH ×2 (08:00→20:03)
[2020-06-07] MEDS: DOCUSATE SODIUM 10 MG/ML 10 ML UDC (COLACE) PO SCH ×2 (08:00→20:03)
[2020-06-07] MEDS: ENOXAPARIN 100 MG/1 ML (LOVENOX) SYR SC SCH ×2 (08:00→20:03)
[2020-06-07] MEDS: meTOprolol TARTRATE 25 MG (LOPRESSOR) TABLET PO SCH ×2 (08:00→20:03)
[2020-06-07] MEDS: PANTOPRAZOLE 40 MG (PROTONIX) VIAL IV SCH (08:00)
[2020-06-07] MEDS: MICONAZOLE 2% POWDER (DESENEX AF) 90 GM TOP SCH ×2 (08:01→20:04)
--- NOTE | 2020-06-07 09:28 | Progress Note - Hospitalist ---
Subjective HPI/CC On Admission Date Seen by Provider: Jun 07, 2020 Time Seen by Provider: 09:23 Phillip Perkins is a 64-year-old male with no known past medical history who presented with shortness of breath. He started getting sick about a week ago. He has been having a cough. He denies any fevers or chills. He denies any changes in his sense of taste or smell. He denies any nausea or vomiting. He denies any diarrhea. He reports having some chest pain and with coughing. He does not follow with a doctor. He says he lost a lot of weight recently. He says he has been told that he had high blood pressure before. He has no known history of diabetes. Subjective/Events-last exam Pt remains intubated and sedated. No ROS possible. No family at bedside. Objective Exam Vital Signs Vital Signs Date Time Temp Pulse Resp B/P (MAP) Pulse Ox O2 Delivery O2 Flow Rate FiO2 06/07/20 09:00 112 20 105/70 (82) 96 Mechanical Ventilator 80.00 06/07/20 08:00 80 06/07/20 07:12 36.1 Capillary Refill : Less Than 3 Seconds General Appearance: Other (ill appearing, intubated and sedated) Respiratory: Decreased Breath Sounds, Rhonci, Other (on vent) Cardiovascular: Irregularly Irregular, Tachycardia Gastrointestinal: Normal Bowel Sounds, Soft Neurologic/Psychiatric: Other (sedated, appears comfortable) Results/Procedures Lab Laboratory Tests 06/07/20 03:35 Patient resulted labs reviewed. Imaging: Reviewed Imaging Report Assessment/Plan Assessment and Plan Assess & Plan/Chief Complaint Acute respiratory failure due to COVID-19 with ARDS -Intubated 05/27 -Continue ventilator, TeleICU managing, remains on PEEP of 20 and fio2 between 70-100% but PaO2 improved some today -Prone x 16hrs per day -Lasix 40 BID -On decadron wean Atrial fibrillation with RVR - Converted to A-fib with overnight - Cardiology consulted, appreciate recs - On therapeutic lovenox already - Cardizem gtt PNA -Completed course of Merrem and Eraxis 06/05 Hyperglycemia Well controlled HTN Lopressor -PRN hydralazine DVT prophylaxis: therapeutic dose Lovenox GI ppx: Protonix I agree with Dr Paige regarding overall prognosis being quite poor. Family to convene over the weekend and discuss goals of care. CARMITA GARCIA MD Jun 07, 2020 09:28
--- NOTE | 2020-06-07 11:14 | Consultation-Cardiology ---
HPI-Cardiology Cardiology Consultation Date of Consultation 06/07/20 Date of Admission Time Seen by Provider: 11:10 Indication: atrial flutter HPI 64 years old gentleman, intubated, ventilator dependent, unable to provide any history, history was obtained by reviewing his record, he presented to the hospital for increasing shortness of breath and cough. Was noted to have COVID- 19 pneumonia, progressed to respiratory failure, ventilatory dependent. Started yesterday having episode of atrial fibrillation and atrial flutter with rapid ventricular response alternating back to sinus rhythm and sinus bradycardia. Upon my evaluation he was in atrial flutter with a heart rate 150 Home Medications & Allergies Allergies: Coded Allergies: NKANo Known Allergies (Unverified Allergy, Mild, 11/05/08) Home Medication List Reviewed: Yes [id number] Hx Patient Social History Recreational Drug Use: No Smoking Status: Never a Smoker Recent Hopitalizations: No Have you traveled recently?: No Alcohol Use?: Yes Past Medical History Discussed below Family Medical History Family Medical Hx Unable to provide family history Review of Systems-General Review of Systems Constitutional: malaise, other (unable to provide review of systems) EENTM: no symptoms reported Respiratory: short of breath Gastrointestinal: no symptoms reported, other (unable to provide) Genitourinary: no symptoms reported Musculoskeletal: no symptoms reported Skin: no symptoms reported Psychiatric/Neurological: No Symptoms Reported All Other Systems Reviewed Negative Unless Noted: Yes Reviewed Test Results Reviewed Test Results Lab Laboratory Tests Test 06/06/20 11:13 06/06/20 17:14 06/06/20 23:07 06/07/20 03:30 Range/Units Glucometer 136 H 130 H 105 70-110 MG/DL Blood Gas Puncture Site L RAD Blood Gas Patient Temperature 36.6 Arterial Blood pH 7.42 7.37-7.43 Arterial Blood Partial Pressure CO2 52 H 35-45 MMHG Arterial Blood Partial Pressure O2 82 79-93 MMHG Arterial Blood HCO3 33 H 23-27 MMOL/L Arterial Blood Total CO2 34.9 H 21.0-31.0 MMOL/L Arterial Blood Oxygen Saturation 97 94-100 % Arterial Blood Base Excess 8.6 H -2.5-2.5 MMOL/L Thony Test YES-POS Blood Gas Ventilator Setting YES Blood Gas Inspired Oxygen 80% Test 06/07/20 03:35 Range/Units White Blood Count 8.9 4.3-11.0 10^3/uL Red Blood Count 4.87 4.30-5.52 10^6/uL Hemoglobin 13.5 13.3-17.7 g/dL Hematocrit 42 40-54 % Mean Corpuscular Volume 85 80-99 fL Mean Corpuscular Hemoglobin 28 25-34 pg Mean Corpuscular Hemoglobin Concent 33 32-36 g/dL Red Cell Distribution Width 14.1 10.0-14.5 % Platelet Count 171 130-400 10^3/uL Mean Platelet Volume 11.7 9.0-12.2 fL Immature Granulocyte % (Auto) 1 % Neutrophils (%) (Auto) 83 H 42-75 % Lymphocytes (%) (Auto) 10 L 12-44 % Monocytes (%) (Auto) 5 0-12 % Eosinophils (%) (Auto) 2 0-10 % Basophils (%) (Auto) 0 0-10 % Neutrophils # (Auto) 7.3 1.8-7.8 10^3/uL Lymphocytes # (Auto) 0.9 L 1.0-4.0 10^3/uL Monocytes # (Auto) 0.4 0.0-1.0 10^3/uL Eosinophils # (Auto) 0.2 0.0-0.3 10^3/uL Basophils # (Auto) 0.0 0.0-0.1 10^3/uL Immature Granulocyte # (Auto) 0.1 0.0-0.1 10^3/uL Sodium Level 140 135-145 MMOL/L Potassium Level 3.6 3.6-5.0 MMOL/L Chloride Level 97 L 98-107 MMOL/L Carbon Dioxide Level 30 21-32 MMOL/L Anion Gap 13 5-14 MMOL/L Blood Urea Nitrogen 18 7-18 MG/DL Creatinine 0.56 L 0.60-1.30 MG/DL Estimat Glomerular Filtration Rate > 60 BUN/Creatinine Ratio 32 Glucose Level 131 H 70-105 MG/DL Calcium Level 8.3 L 8.5-10.1 MG/DL Phosphorus Level 2.2 L 2.3-4.7 MG/DL Magnesium Level 1.7 1.6-2.4 MG/DL Physical Exam Physical Exam Vital Signs Vital Signs - First Documented 06/01/20 06/01/20 00:00 02:22 Temp 36.6 Pulse 67 Resp 23 B/P (MAP) 154/78 (103) Pulse Ox 93 O2 Delivery Mechanical Ventilator O2 Flow Rate 60.00 FiO2 100 Capillary Refill : Less Than 3 Seconds Height, Weight, BMI Height: '" Weight: lbs. oz. kg; 28.72 BMI Method: General Appearance: No Apparent Distress, Other (ill appearing, intubated and sedated) Eyes: Bilateral Eye Normal Inspection, Bilateral Eye PERRL, Bilateral Eye EOMI HEENT: Other (skin breakdown of nose noted) Neck: Normal Inspection, Supple Respiratory: Decreased Breath Sounds, Rhonci, Other (on vent) Cardiovascular: Irregularly Irregular, Tachycardia Gastrointestinal: Normal Bowel Sounds, Soft Genital/Rectal: Other (meng in place) Extremity: Normal Inspection, Non Tender, No Pedal Edema Neurologic/Psychiatric: Other (sedated, appears comfortable) Skin: Normal Color, Warm/Dry A/P-Cardiology Admission Diagnosis Acute respiratory failure Pneumonia Atrial flutter Sinus bradycardia Assessment/Plan Ventilatory dependent respiratory failure due to COVID-19 pneumonia and ARDS, i ntubated on May 27, 2020, managed by primary care team Atrial fibrillation/flutter with rapid ventricular response alternating with sinus bradycardia. Currently in atrial flutter with a heart rate 150. Borderline blood pressure, I started him gently on Cardizem drip with 5 mg bolus which did not affect his heart rate. I will give him another bolus and titrate the drip up and try to achieve adequate heart rate control. I am hesitant to use digoxin due to the episodes of sinus bradycardia and I will evaluate 2-D echo Hypertension, having episodes of hypotension, maintained on Lopressor. Currently on Cardizem drip. Continue to monitor Hyperglycemia, managed by primary care team Poor prognosis THIEN MEDRANO MD Jun 07, 2020 11:14
[2020-06-08] VITALS (31 sets, daily range): BP systolic 126–167; BP diastolic 60–86
[2020-06-08] MEDS: METOCLOPRAMIDE INJ 10 MG/2 ML (REGLAN) IVP SCH ×5 (00:44→23:18)
[2020-06-08] MEDS: inSUlin ASPART (NovoLOG) 1 UNIT/0.01 ML (CHARGE PER UNIT) SQ SCH ×5 (00:58→23:18)
[2020-06-08] MEDS: RT-ALBUTEROL INHALER HFA (VENTOLIN HFA) 18 GM IH SCH ×6 (02:33→21:58)
[2020-06-08] MEDS: PROPOFOL DRIP (ICU) 100 ML IV SCH ×2 (02:42→12:33)
[2020-06-08] MEDS: fentaNYL DRIP PRE-MIX 250 ML IV SCH ×4 (02:42→21:22)
[2020-06-08 03:53] LABS: BASOPHILS % (AUTO) 0 % (0-10); EOSINOPHILS # (AUTO) 0.1 10^3/uL (0.0-0.3); EOSINOPHILS % (AUTO) 2 % (0-10); HEMATOCRIT 32 % (40-54); HEMOGLOBIN 10.3 g/dL (13.3-17.7); LYMPHOCYTES # (AUTO) 0.6 10^3/uL (1.0-4.0); LYMPHOCYTES % (AUTO) 10 % (12-44); MEAN CORPUSCULAR HEMOGLOBIN 28 pg (25-34); MEAN CORPUSCULAR HGB CONC 32 g/dL (32-36); MEAN CORPUSCULAR VOLUME 88 fL (80-99); MEAN PLATELET VOLUME 10.8 fL (9.0-12.2); MONOCYTES # (AUTO) 0.4 10^3/uL (0.0-1.0); MONOCYTES % (AUTO) 7 % (0-12); NEUTROPHILS # (AUTO) 4.7 10^3/uL (1.8-7.8); NEUTROPHILS % (AUTO) 80 % (42-75); PLATELET COUNT 142 10^3/uL (130-400); WHITE BLOOD COUNT 5.9 10^3/uL (4.3-11.0)
[2020-06-08 04:14] LABS: BUN/CREATININE RATIO 33; CALCIUM 6.8 MG/DL (8.5-10.1); CARBON DIOXIDE 28 MMOL/L (21-32); CHLORIDE 101 MMOL/L (98-107); CREATININE SERUM 0.54 MG/DL (0.60-1.30); GFR ESTIMATED > 60; GLUCOSE 165 MG/DL (70-105); MAGNESIUM 1.8 MG/DL (1.6-2.4); PHOSPHORUS 2.4 MG/DL (2.3-4.7); POTASSIUM 3.4 MMOL/L (3.6-5.0); SODIUM 137 MMOL/L (135-145)
[2020-06-08] MEDS: LACTATED RINGERS 1,000 ML IV SCH ×2 (04:34→17:08)
[2020-06-08] MEDS: POTASSIUM CL 10MEQ/50ML IVPB 50 ML IV SCH ×3 (04:34→07:02)
[2020-06-08] MEDS: MAGNESIUM 1 GM/100 ML IVPB 100 ML IV SCH (04:34)
[2020-06-08] MEDS: KCL 20 MEQ TAB (K-DUR) PO SCH (04:35)
[2020-06-08 06:11] LABS: ABG BASE EXCESS 10.8 MMOL/L (-2.5-2.5); ABG OXYGEN SATURATION 98 % (94-100); ABG PCO2 70 MMHG (35-45); ABG PO2 99 MMHG (79-93); ABG TCO2 39.1 MMOL/L (21.0-31.0)
[2020-06-08 06:17] LABS: ABG PH 7.34 (7.37-7.43); ALLENS TEST YES-POS
[2020-06-08 06:18] LABS: INSPIRED O2 90%; PATIENT TEMP 36.7; VENTILATOR YES
--- NOTE | 2020-06-08 07:15 | Diagnostic Imaging Report ---
Indication: Intubated Comparison: 06/07/2020 Findings: Single view of the chest demonstrates ET tube in the mid trachea and PICC line in the SVC. Increasing infiltrates are seen in the right hemithorax. There are persistent but slightly decreased infiltrates of left hemithorax. There is no pneumothorax or large effusion. The heart is stable. Impression: 1. Stable support devices without pneumothorax. 2. Increasing infiltrates in the right, slightly increasing infiltrates on the left. Dictated by: Dictated on workstation # [id number]
--- NOTE | 2020-06-08 08:08 | Physical Therapy Progress Note ---
Therapy Progress Note Patient remains intubated. Will continue to follow. CHIOMA BUCKNER PT Jun 08, 2020 08:08
[2020-06-08] MEDS: SENNA W/DOCUSATE (SENOKOT S) TABLET PO PRN (08:36)
[2020-06-08] MEDS: meTOprolol TARTRATE 25 MG (LOPRESSOR) TABLET PO SCH ×2 (08:36→19:42)
[2020-06-08] MEDS: PANTOPRAZOLE 40 MG (PROTONIX) VIAL IV SCH (08:36)
[2020-06-08] MEDS: FUROSEMIDE 40 MG/4 ML INJ (LASIX) IVP SCH ×2 (08:36→19:42)
[2020-06-08] MEDS: DOCUSATE SODIUM 10 MG/ML 10 ML UDC (COLACE) PO SCH ×2 (08:36→19:42)
[2020-06-08] MEDS: ENOXAPARIN 100 MG/1 ML (LOVENOX) SYR SC SCH ×2 (08:37→19:43)
[2020-06-08] MEDS: MICONAZOLE 2% POWDER (DESENEX AF) 90 GM TOP SCH ×2 (08:37→19:43)
[2020-06-08] MEDS: dilTIAZem DRIP PRE-MIX 125 ML IV SCH (10:02)
[2020-06-08] MEDS: MIDAZOLAM DRIP PRE-MIX 100 ML IV SCH (10:02)
[2020-06-08] MEDS ORDERED: NS IV 1000 ML 1,000 ML IV SCH (11:15)
[2020-06-08] MEDS ORDERED: PANTOPRAZOLE 40 MG (PROTONIX) VIAL IV SCH (11:15)
--- NOTE | 2020-06-08 11:17 | Cardiology Progress Note ---
Subjective Date Seen by Provider: Jun 08, 2020 Time Seen by Provider: 11:16 Subjective/Events-last exam This patient is sedated and intubated Review of Systems General: Other (unable to provide review of systems) Objective-Cardiology Exam Last Set of Vital Signs Vital Signs 06/08/20 06/08/20 06/08/20 08:45 10:58 11:00 Temp 36.2 Pulse 84 Resp 21 B/P (MAP) 160/60 (93) Pulse Ox 91 O2 Delivery Mechanical Ventilator O2 Flow Rate 90.00 FiO2 90 Capillary Refill : Less Than 3 Seconds I&O Intake and Output 06/08/20 00:00 Intake Total 1200 ml Output Total 1800 ml Balance -600 ml Intake Oral 0 ml Tube Feeding 900 ml Other 300 ml Output Urine Total 1800 ml General: Other (sedated and intubated) HEENT: Atraumatic Lungs: Clear to Auscultation Heart: Regular Rate, Normal S1, Normal S2 Abdomen: Normal Bowel Sounds Extremities: No Clubbing Skin: No Rashes Neuro: Other (sedated and intubated) Psych/Mental Status: Other (sedated and intubated) Results Lab Laboratory Tests 06/08/20 03:44 A/P-Cardiology Admission Diagnosis Acute respiratory failure Pneumonia Atrial flutter Sinus bradycardia Assessment/Plan Ventilatory dependent respiratory failure due to COVID-19 pneumonia and ARDS, intubated on May 27, 2020, managed by primary care team Atrial fibrillation/flutter with rapid ventricular response alternating with sinus bradycardia. Heart rate is better controlled. Continue to monitor Hypertension, having episodes of hypotension, maintained on Lopressor. Currently on Cardizem drip. Continue to monitor Hyperglycemia, managed by primary care team Poor prognosis THIEN MEDRANO MD Jun 08, 2020 11:17
--- NOTE | 2020-06-08 13:22 | Progress Note - Hospitalist ---
Subjective HPI/CC On Admission Date Seen by Provider: Jun 08, 2020 Time Seen by Provider: 10:45 Phillip Perkins is a 64-year-old male with no known past medical history who presented with shortness of breath. He started getting sick about a week ago. He has been having a cough. He denies any fevers or chills. He denies any changes in his sense of taste or smell. He denies any nausea or vomiting. He denies any diarrhea. He reports having some chest pain and with coughing. He does not follow with a doctor. He says he lost a lot of weight recently. He says he has been told that he had high blood pressure before. He has no known history of diabetes. Subjective/Events-last exam He is intubated and sedated. Objective Exam Vital Signs Vital Signs Date Time Temp Pulse Resp B/P (MAP) Pulse Ox O2 Delivery O2 Flow Rate FiO2 06/08/20 12:33 74 150/78 06/08/20 12:00 17 94 Mechanical Ventilator 90.00 06/08/20 11:16 37.0 06/08/20 10:58 90 Capillary Refill : Less Than 3 Seconds General Appearance: No Apparent Distress, Obese, Other (intubated and sedated) Respiratory: No Respiratory Distress, Decreased Breath Sounds, Other (intubated and mechanically ventilated) Cardiovascular: Regular Rate, Rhythm, No Edema, No Murmur Gastrointestinal: Normal Bowel Sounds, Soft Extremity: Normal Inspection, Pedal Edema Neurologic/Psychiatric: Other (sedated) Skin: Normal Color, Warm/Dry Results/Procedures Lab Laboratory Tests 06/08/20 03:44 Patient resulted labs reviewed. Imaging: Reviewed Imaging Report Assessment/Plan Assessment and Plan Assess & Plan/Chief Complaint Acute respiratory distress syndrome due to COVID-19 Poor prognosis Intubated 05/27 Continue ventilator, TeleICU managing, high requirements PEEP and FiO2 Proning Lasix Decadron taper Palliative care consulted, appreciate assistance Atrial fibrillation with RVR Cardiology consulted, appreciate recs On therapeutic lovenox Cardizem gtt PNA s/p Merrem and Eraxis completed 06/05 Steroid induced hyperglycemia Well controlled HTN Lopressor PRN hydralazine DVT prophylaxis: already receiving therapeutic dose Lovenox Critical Care Critically Ill Patient Diagnosis/Problems Diagnosis/Problems (1) Acute respiratory distress syndrome (ARDS) due to COVID-19 virus Status: Acute (2) Endotracheally intubated Status: Acute (3) Acute respiratory failure due to COVID-19 Status: Acute (4) PNA (pneumonia) Status: Resolved Resolution Date/Time: 06/08/20 @ 13:28 (5) HTN (hypertension) Status: Chronic (6) Hyperglycemia Status: Acute (7) Lactic acidosis Status: Resolved Resolution Date/Time: 06/08/20 @ 13:28 (8) Atrial fibrillation with RVR Status: Acute (9) Poor prognosis Status: Acute JOSHUA LEHAY MD Jun 08, 2020 13:22
[2020-06-09] VITALS (29 sets, daily range): BP systolic 125–179; BP diastolic 70–96
[2020-06-09] MEDS: PROPOFOL DRIP (ICU) 100 ML IV SCH ×3 (00:44→17:38)
[2020-06-09] MEDS: fentaNYL DRIP PRE-MIX 250 ML IV SCH ×6 (01:57→23:17)
[2020-06-09] MEDS: RT-ALBUTEROL INHALER HFA (VENTOLIN HFA) 18 GM IH SCH ×6 (02:12→21:43)
[2020-06-09 02:33] LABS: BASOPHILS % (AUTO) 0 % (0-10); EOSINOPHILS % (AUTO) 0 % (0-10); HEMATOCRIT 33 % (40-54); HEMOGLOBIN 10.6 g/dL (13.3-17.7); LYMPHOCYTES # (AUTO) 0.6 10^3/uL (1.0-4.0); LYMPHOCYTES % (AUTO) 11 % (12-44); MEAN CORPUSCULAR HEMOGLOBIN 28 pg (25-34); MEAN CORPUSCULAR HGB CONC 32 g/dL (32-36); MEAN CORPUSCULAR VOLUME 88 fL (80-99); MEAN PLATELET VOLUME 11.6 fL (9.0-12.2); MONOCYTES # (AUTO) 0.3 10^3/uL (0.0-1.0); MONOCYTES % (AUTO) 6 % (0-12); NEUTROPHILS # (AUTO) 4.8 10^3/uL (1.8-7.8); NEUTROPHILS % (AUTO) 83 % (42-75); PLATELET COUNT 152 10^3/uL (130-400); WHITE BLOOD COUNT 5.8 10^3/uL (4.3-11.0)
[2020-06-09 02:47] LABS: CHLORIDE 98 MMOL/L (98-107); POTASSIUM 4.1 MMOL/L (3.6-5.0); SODIUM 136 MMOL/L (135-145)
[2020-06-09 02:48] LABS: CALCIUM 7.3 MG/DL (8.5-10.1)
[2020-06-09 02:49] LABS: GLUCOSE 162 MG/DL (70-105)
[2020-06-09 02:50] LABS: CARBON DIOXIDE 32 MMOL/L (21-32)
[2020-06-09 02:52] LABS: PHOSPHORUS 2.3 MG/DL (2.3-4.7)
[2020-06-09 02:53] LABS: BUN/CREATININE RATIO 48; CREATININE SERUM 0.42 MG/DL (0.60-1.30); GFR ESTIMATED > 60
[2020-06-09 02:55] LABS: MAGNESIUM 1.9 MG/DL (1.6-2.4)
[2020-06-09 03:06] LABS: ABG BASE EXCESS 11.7 MMOL/L (-2.5-2.5); ABG OXYGEN SATURATION 96 % (94-100); ABG PO2 91 MMHG (79-93); ABG TCO2 39.9 MMOL/L (21.0-31.0); ALLENS TEST POS
[2020-06-09 03:07] LABS: INSPIRED O2 85%; VENTILATOR YES
[2020-06-09 03:08] LABS: ABG PH 7.34 (7.37-7.43); PATIENT TEMP 37
[2020-06-09 03:09] LABS: ABG PCO2 71 MMHG (35-45)
[2020-06-09] MEDS: POTASSIUM CL 10MEQ/50ML IVPB 50 ML IV SCH (04:15)
[2020-06-09] MEDS: KCL 20 MEQ TAB (K-DUR) PO SCH (04:16)
[2020-06-09] MEDS: MAGNESIUM 1 GM/100 ML IVPB 100 ML IV SCH (04:16)
[2020-06-09] MEDS: METOCLOPRAMIDE INJ 10 MG/2 ML (REGLAN) IVP SCH ×4 (04:55→23:15)
[2020-06-09] MEDS: inSUlin ASPART (NovoLOG) 1 UNIT/0.01 ML (CHARGE PER UNIT) SQ SCH ×4 (04:56→23:15)
--- NOTE | 2020-06-09 08:00 | Physical Therapy Progress Note ---
Therapy Progress Note Patient remains intubated. Will continue to follow. CHIOMA BUCKNER PT Jun 09, 2020 08:00
[2020-06-09] MEDS: DOCUSATE SODIUM 10 MG/ML 10 ML UDC (COLACE) PO SCH ×2 (08:14→19:49)
[2020-06-09] MEDS: ENOXAPARIN 100 MG/1 ML (LOVENOX) SYR SC SCH ×2 (08:15→19:50)
[2020-06-09] MEDS: SENNA W/DOCUSATE (SENOKOT S) TABLET PO PRN (08:15)
[2020-06-09] MEDS: FUROSEMIDE 40 MG/4 ML INJ (LASIX) IVP SCH ×2 (08:15→19:49)
[2020-06-09] MEDS: PANTOPRAZOLE 40 MG (PROTONIX) VIAL IV SCH (08:15)
[2020-06-09] MEDS: meTOprolol TARTRATE 25 MG (LOPRESSOR) TABLET PO SCH ×2 (08:15→19:50)
[2020-06-09] MEDS: MICONAZOLE 2% POWDER (DESENEX AF) 90 GM TOP SCH ×2 (08:16→19:50)
--- NOTE | 2020-06-09 08:19 | Diagnostic Imaging Report ---
INDICATION: Mechanical ventilation, infiltrates. TECHNIQUE: Single view chest 3:45 AM. CORRELATION STUDY: 06/08/2020 FINDINGS: Endotracheal tube, gastric tube and right upper extremity central line are stable. Mediastinal structures unchanged. Bilateral pulmonary opacities favoring infiltrates stable, slightly improved. IMPRESSION: 1. Bilateral pulmonary opacities favoring multilobe pneumonia right greater than left, slightly improved. 2. Stable appearance about support lines and tubes. Dictated by: Dictated on workstation # [id number]
--- NOTE | 2020-06-09 10:48 | Cardiology Progress Note ---
Subjective Date Seen by Provider: Jun 09, 2020 Time Seen by Provider: 10:46 Subjective/Events-last exam patient is sedated and intubated Review of Systems General: Other (sedated and intubated) Objective-Cardiology Exam Last Set of Vital Signs Vital Signs 06/09/20 06/09/20 06/09/20 07:58 09:00 10:07 Temp 36.6 Pulse 96 Resp 24 B/P (MAP) 144/81 (102) Pulse Ox 93 O2 Delivery Mechanical Ventilator O2 Flow Rate 85.00 FiO2 85 Capillary Refill : Less Than 3 Seconds I&O Intake and Output 06/08/20 23:59 Intake Total 1780 ml Output Total 2125 ml Balance -345 ml Intake Oral 240 ml IV Total 350 ml Tube Feeding 1070 ml Other 120 ml Output Urine Total 2125 ml General: Other (sedated and intubated) HEENT: Atraumatic Lungs: Clear to Auscultation Heart: Regular Rate, Normal S1, Normal S2 Abdomen: Normal Bowel Sounds Extremities: No Clubbing Skin: No Rashes Neuro: Other (sedated and intubated) Psych/Mental Status: Other (sedated and intubated) Results Lab Laboratory Tests 06/09/20 02:16 A/P-Cardiology Admission Diagnosis Acute respiratory failure Pneumonia Atrial flutter Sinus bradycardia Assessment/Plan Ventilatory dependent respiratory failure due to COVID-19 pneumonia and ARDS, intubated on May 27, 2020, managed by primary care team, consider tracheostomy Atrial fibrillation/flutter with rapid ventricular response alternating with sinus bradycardia. Heart rate is better controlled. Continue to monitor Hypertension, having episodes of hypotension, maintained on Lopressor. Currently on Cardizem drip. Continue to monitor Hyperglycemia, managed by primary care team Poor prognosis THIEN MEDRANO MD Jun 09, 2020 10:48
--- NOTE | 2020-06-09 12:53 | Progress Note - Hospitalist ---
Subjective HPI/CC On Admission Date Seen by Provider: Jun 09, 2020 Time Seen by Provider: 09:40 Phillip Perkins is a 64-year-old male with no known past medical history who presented with shortness of breath. He started getting sick about a week ago. He has been having a cough. He denies any fevers or chills. He denies any changes in his sense of taste or smell. He denies any nausea or vomiting. He denies any diarrhea. He reports having some chest pain and with coughing. He does not follow with a doctor. He says he lost a lot of weight recently. He says he has been told that he had high blood pressure before. He has no known history of diabetes. Subjective/Events-last exam He remains intubated and sedated. Objective Exam Vital Signs Vital Signs Date Time Temp Pulse Resp B/P (MAP) Pulse Ox O2 Delivery O2 Flow Rate FiO2 06/09/20 12:00 36.5 06/09/20 11:00 96 24 179/86 (117) 94 Mechanical Ventilator 85.00 06/09/20 10:07 85 Capillary Refill : Less Than 3 Seconds General Appearance: No Apparent Distress, Obese Respiratory: Other (intubated and mechanically ventilated, coarse breath sounds) Cardiovascular: No Murmur, Irregularly Irregular Gastrointestinal: Normal Bowel Sounds, Soft Extremity: Normal Inspection, Pedal Edema Neurologic/Psychiatric: Other (sedated) Skin: Normal Color, Warm/Dry Results/Procedures Lab Laboratory Tests 06/09/20 02:16 Patient resulted labs reviewed. Imaging: Reviewed Imaging Report Assessment/Plan Assessment and Plan Assess & Plan/Chief Complaint Acute respiratory distress syndrome due to COVID-19 Poor prognosis Intubated 05/27 Continue ventilator, TeleICU managing, high requirements PEEP and FiO2 Lasix Decadron taper Palliative care consulted, appreciate assistance Discussion with family, recommended comfort measures only status due to poor prognosis and failure to improve despite prolonged aggressive treatment Atrial fibrillation with RVR Cardiology consulted, appreciate recs On therapeutic lovenox Cardizem gtt PNA s/p Merrem and Eraxis completed 06/05 Steroid induced hyperglycemia Well controlled HTN Lopressor PRN hydralazine DVT prophylaxis: already receiving therapeutic dose Lovenox Critical Care Critically Ill Patient Diagnosis/Problems Diagnosis/Problems (1) Acute respiratory distress syndrome (ARDS) due to COVID-19 virus Status: Acute (2) Endotracheally intubated Status: Acute (3) Acute respiratory failure due to COVID-19 Status: Acute (4) PNA (pneumonia) Status: Resolved Resolution Date/Time: 06/08/20 @ 13:28 (5) HTN (hypertension) Status: Chronic (6) Hyperglycemia Status: Acute (7) Lactic acidosis Status: Resolved Resolution Date/Time: 06/08/20 @ 13:28 (8) Atrial fibrillation with RVR Status: Acute (9) Poor prognosis Status: Acute JOSHUA LEAHY MD Jun 09, 2020 12:53
[2020-06-09] MEDS: MIDAZOLAM DRIP PRE-MIX 100 ML IV SCH (16:50)
[2020-06-09] MEDS: LACTATED RINGERS 1,000 ML IV SCH (23:36)
[2020-06-10] VITALS (30 sets, daily range): BP systolic 97–165; BP diastolic 59–98
[2020-06-10] MEDS: RT-ALBUTEROL INHALER HFA (VENTOLIN HFA) 18 GM IH SCH ×6 (01:36→22:42)
[2020-06-10] MEDS: PROPOFOL DRIP (ICU) 100 ML IV SCH ×3 (01:48→18:24)
[2020-06-10 01:52] LABS: ABG BASE EXCESS 14.9 MMOL/L (-2.5-2.5); ABG OXYGEN SATURATION 98 % (94-100); ABG PCO2 69 MMHG (35-45); ABG PH 7.39 (7.37-7.43); ABG PO2 114 MMHG (79-93)
[2020-06-10 01:53] LABS: HEMOGLOBIN 10.2 g/dL (13.3-17.7); MEAN PLATELET VOLUME 11.3 fL (9.0-12.2); WHITE BLOOD COUNT 5.7 10^3/uL (4.3-11.0)
[2020-06-10 01:54] LABS: ALLENS TEST YES-POS; INSPIRED O2 85%; PATIENT TEMP 36.2; VENTILATOR YES
[2020-06-10 02:09] LABS: BUN/CREATININE RATIO 43; CALCIUM 7.1 MG/DL (8.5-10.1); CARBON DIOXIDE 32 MMOL/L (21-32); CHLORIDE 100 MMOL/L (98-107); CREATININE SERUM 0.49 MG/DL (0.60-1.30); GFR ESTIMATED > 60; POTASSIUM 3.6 MMOL/L (3.6-5.0); SODIUM 140 MMOL/L (135-145)
[2020-06-10 02:33] LABS: GLUCOSE 130 MG/DL (70-105)
[2020-06-10 02:51] LABS: MAGNESIUM 1.8 MG/DL (1.6-2.4); PHOSPHORUS 2.1 MG/DL (2.3-4.7)
[2020-06-10] MEDS: KCL 20 MEQ TAB (K-DUR) PO SCH (02:51)
[2020-06-10] MEDS: POTASSIUM CL 10MEQ/50ML IVPB 50 ML IV SCH ×3 (02:51→03:41)
[2020-06-10] MEDS: MAGNESIUM 1 GM/100 ML IVPB 100 ML IV SCH (02:52)
[2020-06-10] MEDS: fentaNYL DRIP PRE-MIX 250 ML IV SCH ×5 (03:40→23:21)
[2020-06-10] MEDS: METOCLOPRAMIDE INJ 10 MG/2 ML (REGLAN) IVP SCH ×4 (04:49→23:21)
[2020-06-10] MEDS: dilTIAZem DRIP PRE-MIX 125 ML IV SCH (04:49)
[2020-06-10] MEDS: inSUlin ASPART (NovoLOG) 1 UNIT/0.01 ML (CHARGE PER UNIT) SQ SCH ×4 (04:52→23:18)
--- NOTE | 2020-06-10 06:07 | Diagnostic Imaging Report ---
INDICATION: Ventilator support and pulmonary infiltrates. Time of exam: 2:55 AM Correlation is made with prior chest from 06/09/2020. ET tube has tip above the marva. Right upper extremity PICC line has tip overlying the SVC. Patchy airspace infiltrates in both lungs persist. There is no effusion or pneumothorax. IMPRESSION: No change in bilateral infiltrates since exam one day earlier. Dictated by: Dictated on workstation # [id number]
--- NOTE | 2020-06-10 07:56 | Physical Therapy Progress Note ---
Therapy Progress Note Patient remains intubated. Will continue to follow. ESTEPHANIA DOZIER PT Jun 10, 2020 07:56
[2020-06-10] MEDS: SENNA W/DOCUSATE (SENOKOT S) TABLET PO PRN (08:31)
[2020-06-10] MEDS: DOCUSATE SODIUM 10 MG/ML 10 ML UDC (COLACE) PO SCH ×2 (08:32→19:28)
[2020-06-10] MEDS: ENOXAPARIN 100 MG/1 ML (LOVENOX) SYR SC SCH ×2 (08:32→19:29)
[2020-06-10] MEDS: PANTOPRAZOLE 40 MG (PROTONIX) VIAL IV SCH (08:32)
[2020-06-10] MEDS: FUROSEMIDE 40 MG/4 ML INJ (LASIX) IVP SCH ×3 (08:33→21:38)
[2020-06-10] MEDS: meTOprolol TARTRATE 25 MG (LOPRESSOR) TABLET PO SCH ×2 (08:34→19:28)
[2020-06-10] MEDS: MICONAZOLE 2% POWDER (DESENEX AF) 90 GM TOP SCH ×2 (08:35→19:29)
[2020-06-10] MEDS: polyethylene glycoL POWDER 17 GM (MIRALAX) PACK NG SCH ×2 (08:48→19:28)
[2020-06-10] MEDS ORDERED: FLEET ENEMA ADULT 1 EA BTL PR PRN (10:45)
--- NOTE | 2020-06-10 13:53 | Progress Note - Hospitalist ---
Subjective HPI/CC On Admission Date Seen by Provider: Jun 10, 2020 Time Seen by Provider: 09:20 Phillip Perkins is a 64-year-old male with no known past medical history who presented with shortness of breath. He started getting sick about a week ago. He has been having a cough. He denies any fevers or chills. He denies any changes in his sense of taste or smell. He denies any nausea or vomiting. He denies any diarrhea. He reports having some chest pain and with coughing. He does not follow with a doctor. He says he lost a lot of weight recently. He says he has been told that he had high blood pressure before. He has no known history of diabetes. Subjective/Events-last exam He remains intubated and sedated. Objective Exam Vital Signs Vital Signs Date Time Temp Pulse Resp B/P (MAP) Pulse Ox O2 Delivery O2 Flow Rate FiO2 06/10/20 12:58 109 06/10/20 12:00 11 132/82 (99) 94 Mechanical Ventilator 90.00 06/10/20 11:49 36.4 06/10/20 11:06 90 Capillary Refill : Less Than 3 Seconds General Appearance: No Apparent Distress, Other (Intubated and sedated) Respiratory: No Respiratory Distress, Decreased Breath Sounds, Other (Intubated and mechanically ventilated) Cardiovascular: No Murmur, Irregularly Irregular, Tachycardia Gastrointestinal: Normal Bowel Sounds, Soft Extremity: Normal Inspection, Pedal Edema Neurologic/Psychiatric: Other (Sedated) Skin: Normal Color, Warm/Dry Results/Procedures Lab Laboratory Tests 06/10/20 01:41 Patient resulted labs reviewed. Imaging: Reviewed Imaging Report Assessment/Plan Assessment and Plan Assess & Plan/Chief Complaint Acute respiratory distress syndrome due to COVID-19 Poor prognosis Intubated 05/27 Continue ventilator, TeleICU managing, high requirements PEEP and FiO2 Lasix Decadron taper Palliative care consulted, appreciate assistance Awaiting family decision regarding plan of care Atrial fibrillation with RVR Cardiology consulted, appreciate recs On therapeutic lovenox Cardizem gtt PNA s/p Merrem and Eraxis completed 06/05 Steroid induced hyperglycemia Well controlled HTN Lopressor PRN hydralazine DVT prophylaxis: already receiving therapeutic dose Lovenox Critical Care Critically Ill Patient Diagnosis/Problems Diagnosis/Problems (1) Acute respiratory distress syndrome (ARDS) due to COVID-19 virus Status: Acute (2) Endotracheally intubated Status: Acute (3) Acute respiratory failure due to COVID-19 Status: Acute (4) PNA (pneumonia) Status: Resolved Resolution Date/Time: 06/08/20 @ 13:28 (5) HTN (hypertension) Status: Chronic (6) Hyperglycemia Status: Acute (7) Lactic acidosis Status: Resolved Resolution Date/Time: 06/08/20 @ 13:28 (8) Atrial fibrillation with RVR Status: Acute (9) Poor prognosis Status: Acute JOSHUA LEAHY MD Jun 10, 2020 13:52
[2020-06-10] MEDS: MIDAZOLAM DRIP PRE-MIX 100 ML IV SCH (16:45)
[2020-06-11] VITALS (30 sets, daily range): BP systolic 89–187; BP diastolic 54–102
[2020-06-11] MEDS: RT-ALBUTEROL INHALER HFA (VENTOLIN HFA) 18 GM IH SCH ×6 (02:25→22:17)
[2020-06-11 02:40] LABS: BASOPHILS % (AUTO) 0 % (0-10); EOSINOPHILS # (AUTO) 0.3 10^3/uL (0.0-0.3); EOSINOPHILS % (AUTO) 4 % (0-10); HEMATOCRIT 34 % (40-54); HEMOGLOBIN 11.1 g/dL (13.3-17.7); LYMPHOCYTES # (AUTO) 1.2 10^3/uL (1.0-4.0); LYMPHOCYTES % (AUTO) 18 % (12-44); MEAN CORPUSCULAR HEMOGLOBIN 29 pg (25-34); MEAN CORPUSCULAR HGB CONC 33 g/dL (32-36); MEAN CORPUSCULAR VOLUME 88 fL (80-99); MONOCYTES # (AUTO) 0.4 10^3/uL (0.0-1.0); MONOCYTES % (AUTO) 6 % (0-12); NEUTROPHILS # (AUTO) 4.9 10^3/uL (1.8-7.8); NEUTROPHILS % (AUTO) 71 % (42-75); PLATELET COUNT 202 10^3/uL (130-400); WHITE BLOOD COUNT 6.9 10^3/uL (4.3-11.0)
[2020-06-11 02:41] LABS: ABG BASE EXCESS 16.9 MMOL/L (-2.5-2.5); ABG OXYGEN SATURATION 95 % (94-100); ABG PCO2 60 MMHG (35-45); ABG PH 7.46 (7.37-7.43); ABG PO2 77 MMHG (79-93)
[2020-06-11 02:43] LABS: ALLENS TEST POSITIVE; INSPIRED O2 85%; PATIENT TEMP 36.6; VENTILATOR YES
[2020-06-11 02:56] LABS: BUN/CREATININE RATIO 37; CALCIUM 7.1 MG/DL (8.5-10.1); CARBON DIOXIDE 32 MMOL/L (21-32); CHLORIDE 97 MMOL/L (98-107); CREATININE SERUM 0.51 MG/DL (0.60-1.30); GFR ESTIMATED > 60; GLUCOSE 104 MG/DL (70-105); MAGNESIUM 1.6 MG/DL (1.6-2.4); PHOSPHORUS 1.7 MG/DL (2.3-4.7); POTASSIUM 3.5 MMOL/L (3.6-5.0); SODIUM 139 MMOL/L (135-145)
[2020-06-11] MEDS: fentaNYL DRIP PRE-MIX 250 ML IV SCH ×5 (03:55→23:05)
[2020-06-11] MEDS: PROPOFOL DRIP (ICU) 100 ML IV SCH ×4 (03:55→22:05)
[2020-06-11] MEDS: KCL 20 MEQ TAB (K-DUR) PO SCH (04:14)
[2020-06-11] MEDS: LACTATED RINGERS 1,000 ML IV SCH ×2 (04:14→09:02)
[2020-06-11] MEDS: POTASSIUM CL 10MEQ/50ML IVPB 50 ML IV SCH ×3 (04:14→05:12)
[2020-06-11] MEDS: MAGNESIUM 1 GM/100 ML IVPB 100 ML IV SCH ×3 (04:14→05:12)
[2020-06-11] MEDS: hydrALAZINE (APESOLINE) 20 MG/ML VIAL IV PRN (04:25)
[2020-06-11] MEDS: FUROSEMIDE 40 MG/4 ML INJ (LASIX) IVP SCH ×3 (05:11→22:04)
[2020-06-11] MEDS: METOCLOPRAMIDE INJ 10 MG/2 ML (REGLAN) IVP SCH ×4 (05:12→23:05)
[2020-06-11] MEDS: inSUlin ASPART (NovoLOG) 1 UNIT/0.01 ML (CHARGE PER UNIT) SQ SCH ×3 (05:23→17:03)
[2020-06-11] MEDS ORDERED: meTOprolol 5 MG/5 ML (LOPRESSOR) VIAL ONE (05:34)
[2020-06-11] MEDS ORDERED: meTOprolol 5 MG/5 ML (LOPRESSOR) VIAL IV ONE (05:45)
--- NOTE | 2020-06-11 07:47 | Diagnostic Imaging Report ---
CHEST 1 VIEW, AP/PA ONLY Indication: Intubation Comparison: 06/10/2020 Findings: Bilateral perihilar and basilar ill-defined pulmonary opacities have slightly improved but persists. No pleural effusion or pneumothorax. Stable ET and enteric tubes. Stable cardiomediastinal silhouette. Stable right PICC. Impression: 1. Stable support devices. 2. Slightly improved but persistent bilateral pulmonary opacities. Dictated by: Dictated on workstation # [id number]
--- NOTE | 2020-06-11 07:57 | Physical Therapy Progress Note ---
Therapy Progress Note Patient remains intubated. Will continue to follow. CHIOMA BUCKNER PT Jun 11, 2020 07:57
[2020-06-11] MEDS: PANTOPRAZOLE 40 MG (PROTONIX) VIAL IV SCH (08:45)
[2020-06-11] MEDS: dilTIAZem DRIP PRE-MIX 125 ML IV SCH (08:45)
[2020-06-11] MEDS: DOCUSATE SODIUM 10 MG/ML 10 ML UDC (COLACE) PO SCH ×2 (08:45→20:05)
[2020-06-11] MEDS: SENNA W/DOCUSATE (SENOKOT S) TABLET PO PRN (08:46)
[2020-06-11] MEDS: ENOXAPARIN 100 MG/1 ML (LOVENOX) SYR SC SCH ×2 (08:46→20:05)
[2020-06-11] MEDS: meTOprolol TARTRATE 25 MG (LOPRESSOR) TABLET PO SCH ×2 (08:46→20:05)
[2020-06-11] MEDS: polyethylene glycoL POWDER 17 GM (MIRALAX) PACK NG SCH ×2 (08:46→20:04)
[2020-06-11] MEDS: MICONAZOLE 2% POWDER (DESENEX AF) 90 GM TOP SCH ×2 (08:47→20:05)
--- NOTE | 2020-06-11 10:03 | Progress Note - Hospitalist ---
Subjective HPI/CC On Admission Date Seen by Provider: Jun 11, 2020 Time Seen by Provider: 09:00 Phillip Perkins is a 64-year-old male with no known past medical history who presented with shortness of breath. He started getting sick about a week ago. He has been having a cough. He denies any fevers or chills. He denies any changes in his sense of taste or smell. He denies any nausea or vomiting. He denies any diarrhea. He reports having some chest pain and with coughing. He does not follow with a doctor. He says he lost a lot of weight recently. He says he has been told that he had high blood pressure before. He has no known history of diabetes. Subjective/Events-last exam He remains intubated and sedated. Objective Exam Vital Signs Vital Signs Date Time Temp Pulse Resp B/P (MAP) Pulse Ox O2 Delivery O2 Flow Rate FiO2 06/11/20 09:00 99 18 135/86 (102) 92 Mechanical Ventilator 95.00 06/11/20 08:09 36.5 06/11/20 06:57 85 Capillary Refill : Less Than 3 Seconds General Appearance: No Apparent Distress, Obese, Other (Intubated and sedated) Respiratory: Decreased Breath Sounds, Other (Intubated and mechanically ventilated, coarse breath sounds) Cardiovascular: No Murmur, Irregularly Irregular, Tachycardia Gastrointestinal: Normal Bowel Sounds, Non Tender, Soft Extremity: Normal Inspection, Non Tender, Pedal Edema Neurologic/Psychiatric: Alert, Oriented x3 Skin: Normal Color, Warm/Dry Results/Procedures Lab Laboratory Tests 06/11/20 02:30 Patient resulted labs reviewed. Imaging: Reviewed Imaging Report Assessment/Plan Assessment and Plan Assess & Plan/Chief Complaint Acute respiratory distress syndrome due to COVID-19 Poor prognosis Intubated 05/27 Continue ventilator, TeleICU managing, high requirements PEEP and FiO2 Lasix Decadron taper Palliative care consulted, appreciate assistance Awaiting family decision regarding plan of care Atrial fibrillation with RVR Cardiology consulted, appreciate recs On therapeutic lovenox Cardizem gtt PNA s/p Merrem and Eraxis completed 06/05 Steroid induced hyperglycemia Well controlled HTN Lopressor PRN hydralazine DVT prophylaxis: already receiving therapeutic dose Lovenox Critical Care Critically Ill Patient Diagnosis/Problems Diagnosis/Problems (1) Acute respiratory distress syndrome (ARDS) due to COVID-19 virus Status: Acute (2) Endotracheally intubated Status: Acute (3) Acute respiratory failure due to COVID-19 Status: Acute (4) PNA (pneumonia) Status: Resolved Resolution Date/Time: 06/08/20 @ 13:28 (5) HTN (hypertension) Status: Chronic (6) Hyperglycemia Status: Acute (7) Lactic acidosis Status: Resolved Resolution Date/Time: 06/08/20 @ 13:28 (8) Atrial fibrillation with RVR Status: Acute (9) Poor prognosis Status: Acute JOSHUA LEAHY MD Jun 11, 2020 10:03
[2020-06-11] MEDS: MIDAZOLAM DRIP PRE-MIX 100 ML IV SCH (15:25)
[2020-06-12] VITALS (31 sets, daily range): BP systolic 98–165; BP diastolic 54–85
[2020-06-12] MEDS: inSUlin ASPART (NovoLOG) 1 UNIT/0.01 ML (CHARGE PER UNIT) SQ SCH ×4 (00:41→17:58)
[2020-06-12] MEDS: RT-ALBUTEROL INHALER HFA (VENTOLIN HFA) 18 GM IH SCH ×6 (01:37→21:38)
[2020-06-12 02:45] LABS: BASOPHILS % (AUTO) 0 % (0-10); EOSINOPHILS # (AUTO) 0.2 10^3/uL (0.0-0.3); EOSINOPHILS % (AUTO) 3 % (0-10); HEMATOCRIT 33 % (40-54); HEMOGLOBIN 10.5 g/dL (13.3-17.7); LYMPHOCYTES # (AUTO) 0.9 10^3/uL (1.0-4.0); LYMPHOCYTES % (AUTO) 15 % (12-44); MEAN CORPUSCULAR HEMOGLOBIN 28 pg (25-34); MEAN CORPUSCULAR HGB CONC 32 g/dL (32-36); MEAN CORPUSCULAR VOLUME 88 fL (80-99); MEAN PLATELET VOLUME 10.9 fL (9.0-12.2); MONOCYTES # (AUTO) 0.3 10^3/uL (0.0-1.0); MONOCYTES % (AUTO) 5 % (0-12); NEUTROPHILS # (AUTO) 4.5 10^3/uL (1.8-7.8); NEUTROPHILS % (AUTO) 76 % (42-75); PLATELET COUNT 192 10^3/uL (130-400); WHITE BLOOD COUNT 5.9 10^3/uL (4.3-11.0)
[2020-06-12 03:09] LABS: BUN/CREATININE RATIO 36; CALCIUM 7.7 MG/DL (8.5-10.1); CARBON DIOXIDE 38 MMOL/L (21-32); CHLORIDE 93 MMOL/L (98-107); CREATININE SERUM 0.64 MG/DL (0.60-1.30); GFR ESTIMATED > 60; GLUCOSE 115 MG/DL (70-105); MAGNESIUM 2.5 MG/DL (1.6-2.4); PHOSPHORUS 3.2 MG/DL (2.3-4.7); POTASSIUM 3.5 MMOL/L (3.6-5.0); SODIUM 140 MMOL/L (135-145)
[2020-06-12] MEDS: fentaNYL DRIP PRE-MIX 250 ML IV SCH ×5 (03:43→22:03)
[2020-06-12] MEDS: PROPOFOL DRIP (ICU) 100 ML IV SCH ×4 (03:43→22:02)
[2020-06-12] MEDS: POTASSIUM CL 10MEQ/50ML IVPB 50 ML IV SCH ×2 (04:11→06:24)
[2020-06-12] MEDS: METOCLOPRAMIDE INJ 10 MG/2 ML (REGLAN) IVP SCH ×3 (06:19→17:44)
[2020-06-12] MEDS: FUROSEMIDE 40 MG/4 ML INJ (LASIX) IVP SCH ×3 (06:23→22:00)
[2020-06-12] MEDS: KCL 20 MEQ TAB (K-DUR) PO SCH (06:23)
[2020-06-12] MEDS: MAGNESIUM 1 GM/100 ML IVPB 100 ML IV SCH (06:24)
[2020-06-12] MEDS: dilTIAZem DRIP PRE-MIX 125 ML IV SCH ×2 (07:13→17:44)
[2020-06-12] MEDS: LACTATED RINGERS 1,000 ML IV SCH (08:49)
[2020-06-12] MEDS: meTOprolol TARTRATE 25 MG (LOPRESSOR) TABLET PO SCH ×2 (08:50→22:01)
[2020-06-12] MEDS: PANTOPRAZOLE 40 MG (PROTONIX) VIAL IV SCH (08:50)
[2020-06-12] MEDS: polyethylene glycoL POWDER 17 GM (MIRALAX) PACK NG SCH ×2 (08:51→22:00)
[2020-06-12] MEDS: MICONAZOLE 2% POWDER (DESENEX AF) 90 GM TOP SCH ×2 (08:51→22:03)
[2020-06-12] MEDS: DOCUSATE SODIUM 10 MG/ML 10 ML UDC (COLACE) PO SCH ×2 (08:51→22:00)
[2020-06-12] MEDS: ENOXAPARIN 100 MG/1 ML (LOVENOX) SYR SC SCH ×2 (08:51→22:00)
[2020-06-12] MEDS: MIDAZOLAM DRIP PRE-MIX 100 ML IV SCH (10:00)
--- NOTE | 2020-06-12 10:16 | Progress Note - Hospitalist ---
Subjective HPI/CC On Admission Date Seen by Provider: Jun 12, 2020 Time Seen by Provider: 08:50 Phillip Perkins is a 64-year-old male with no known past medical history who presented with shortness of breath. He started getting sick about a week ago. He has been having a cough. He denies any fevers or chills. He denies any changes in his sense of taste or smell. He denies any nausea or vomiting. He denies any diarrhea. He reports having some chest pain and with coughing. He does not follow with a doctor. He says he lost a lot of weight recently. He says he has been told that he had high blood pressure before. He has no known history of diabetes. Subjective/Events-last exam He remains intubated and sedated. Objective Exam Vital Signs Vital Signs Date Time Temp Pulse Resp B/P (MAP) Pulse Ox O2 Delivery O2 Flow Rate FiO2 06/12/20 10:00 77 23 121/68 06/12/20 10:00 94 Mechanical Ventilator 80.00 06/12/20 07:39 36.8 06/12/20 06:19 85 Capillary Refill : Less Than 3 Seconds General Appearance: No Apparent Distress, Obese Respiratory: Decreased Breath Sounds, Other (intubated and mechanically ventilated, coarse breath sounds) Cardiovascular: No Murmur, Irregularly Irregular Gastrointestinal: Normal Bowel Sounds, Soft Extremity: Normal Inspection, Pedal Edema Neurologic/Psychiatric: Other (sedated) Skin: Normal Color, Warm/Dry Results/Procedures Lab Laboratory Tests 06/12/20 02:35 Patient resulted labs reviewed. Imaging: Reviewed Imaging Report Assessment/Plan Assessment and Plan Assess & Plan/Chief Complaint Acute respiratory distress syndrome due to COVID-19 Poor prognosis Intubated 05/27 Continue ventilator, TeleICU managing, high requirements PEEP and FiO2 Lasix Decadron taper Palliative care consulted, appreciate assistance Family planning to transition to comfort measures only with compassionate extubation on Monday Atrial fibrillation with RVR Cardiology consulted, appreciate recs On therapeutic lovenox Cardizem gtt PNA s/p Merrem and Eraxis completed 06/05 Steroid induced hyperglycemia Well controlled HTN Lopressor PRN hydralazine DVT prophylaxis: already receiving therapeutic dose Lovenox Critical Care Critically Ill Patient Diagnosis/Problems Diagnosis/Problems (1) Acute respiratory distress syndrome (ARDS) due to COVID-19 virus Status: Acute (2) Endotracheally intubated Status: Acute (3) Acute respiratory failure due to COVID-19 Status: Acute (4) PNA (pneumonia) Status: Resolved Resolution Date/Time: 06/08/20 @ 13:28 (5) HTN (hypertension) Status: Chronic (6) Hyperglycemia Status: Acute (7) Lactic acidosis Status: Resolved Resolution Date/Time: 06/08/20 @ 13:28 (8) Atrial fibrillation with RVR Status: Acute (9) Poor prognosis Status: Acute JOSHUA LEAHY MD Jun 12, 2020 10:16
[2020-06-12] MEDS: hydrALAZINE (APESOLINE) 20 MG/ML VIAL IV PRN (16:49)
[2020-06-13] VITALS (32 sets, daily range): BP systolic 100–161; BP diastolic 55–79
[2020-06-13] MEDS: inSUlin ASPART (NovoLOG) 1 UNIT/0.01 ML (CHARGE PER UNIT) SQ SCH ×4 (00:20→17:22)
[2020-06-13] MEDS: METOCLOPRAMIDE INJ 10 MG/2 ML (REGLAN) IVP SCH ×4 (00:20→17:10)
[2020-06-13] MEDS: RT-ALBUTEROL INHALER HFA (VENTOLIN HFA) 18 GM IH SCH ×6 (01:46→21:25)
[2020-06-13] MEDS: fentaNYL DRIP PRE-MIX 250 ML IV SCH ×6 (02:05→22:25)
[2020-06-13] MEDS: PROPOFOL DRIP (ICU) 100 ML IV SCH ×5 (02:05→22:25)
[2020-06-13] MEDS: dilTIAZem DRIP PRE-MIX 125 ML IV SCH (02:22)
[2020-06-13] MEDS: MIDAZOLAM DRIP PRE-MIX 100 ML IV SCH ×2 (02:22→16:47)
[2020-06-13 03:34] LABS: BASOPHILS % (AUTO) 0 % (0-10); EOSINOPHILS # (AUTO) 0.2 10^3/uL (0.0-0.3); EOSINOPHILS % (AUTO) 2 % (0-10); HEMATOCRIT 32 % (40-54); HEMOGLOBIN 10.1 g/dL (13.3-17.7); LYMPHOCYTES # (AUTO) 0.9 10^3/uL (1.0-4.0); LYMPHOCYTES % (AUTO) 13 % (12-44); MEAN CORPUSCULAR HEMOGLOBIN 27 pg (25-34); MEAN CORPUSCULAR HGB CONC 31 g/dL (32-36); MEAN CORPUSCULAR VOLUME 87 fL (80-99); MEAN PLATELET VOLUME 10.7 fL (9.0-12.2); MONOCYTES # (AUTO) 0.4 10^3/uL (0.0-1.0); MONOCYTES % (AUTO) 5 % (0-12); NEUTROPHILS # (AUTO) 5.2 10^3/uL (1.8-7.8); NEUTROPHILS % (AUTO) 78 % (42-75); PLATELET COUNT 219 10^3/uL (130-400); WHITE BLOOD COUNT 6.7 10^3/uL (4.3-11.0)
[2020-06-13 03:55] LABS: CHLORIDE 91 MMOL/L (98-107); POTASSIUM 3.2 MMOL/L (3.6-5.0); SODIUM 138 MMOL/L (135-145)
[2020-06-13 03:56] LABS: CALCIUM 7.8 MG/DL (8.5-10.1); GLUCOSE 176 MG/DL (70-105)
[2020-06-13 03:58] LABS: CARBON DIOXIDE 37 MMOL/L (21-32)
[2020-06-13 04:00] LABS: CREATININE SERUM 0.59 MG/DL (0.60-1.30); GFR ESTIMATED > 60; PHOSPHORUS 2.9 MG/DL (2.3-4.7)
[2020-06-13 04:01] LABS: BUN/CREATININE RATIO 34
[2020-06-13 04:03] LABS: MAGNESIUM 1.9 MG/DL (1.6-2.4)
[2020-06-13] MEDS: POTASSIUM CL 10MEQ/50ML IVPB 50 ML IV SCH ×5 (05:21→07:54)
[2020-06-13] MEDS: FUROSEMIDE 40 MG/4 ML INJ (LASIX) IVP SCH ×3 (05:23→20:52)
[2020-06-13] MEDS: MAGNESIUM 1 GM/100 ML IVPB 100 ML IV SCH (05:23)
[2020-06-13] MEDS: KCL 20 MEQ TAB (K-DUR) PO SCH (05:23)
[2020-06-13] MEDS: ENOXAPARIN 100 MG/1 ML (LOVENOX) SYR SC SCH ×2 (07:55→20:52)
[2020-06-13] MEDS: PANTOPRAZOLE 40 MG (PROTONIX) VIAL IV SCH (07:55)
[2020-06-13] MEDS: polyethylene glycoL POWDER 17 GM (MIRALAX) PACK NG SCH ×2 (07:56→20:51)
[2020-06-13] MEDS: meTOprolol TARTRATE 25 MG (LOPRESSOR) TABLET PO SCH ×2 (07:56→20:56)
[2020-06-13] MEDS: MICONAZOLE 2% POWDER (DESENEX AF) 90 GM TOP SCH ×2 (07:57→20:52)
[2020-06-13] MEDS: DOCUSATE SODIUM 10 MG/ML 10 ML UDC (COLACE) PO SCH ×2 (07:57→20:51)
--- NOTE | 2020-06-13 11:25 | Progress Note - Hospitalist ---
Subjective HPI/CC On Admission Date Seen by Provider: Jun 13, 2020 Time Seen by Provider: 09:20 Phillip Perkins is a 64-year-old male with no known past medical history who presented with shortness of breath. He started getting sick about a week ago. He has been having a cough. He denies any fevers or chills. He denies any changes in his sense of taste or smell. He denies any nausea or vomiting. He denies any diarrhea. He reports having some chest pain and with coughing. He does not follow with a doctor. He says he lost a lot of weight recently. He says he has been told that he had high blood pressure before. He has no known history of diabetes. Subjective/Events-last exam He remains intubated and sedated. Objective Exam Vital Signs Vital Signs Date Time Temp Pulse Resp B/P (MAP) Pulse Ox O2 Delivery O2 Flow Rate FiO2 06/13/20 11:18 36.1 06/13/20 11:00 66 22 116/66 (83) 96 Mechanical Ventilator 80.00 06/13/20 09:46 80 Capillary Refill : Less Than 3 Seconds General Appearance: No Apparent Distress, Obese, Other (intubated and sedated) Respiratory: Lungs Clear, No Respiratory Distress, Other (intubated and mechanically ventilated) Cardiovascular: No Murmur, Irregularly Irregular Gastrointestinal: Normal Bowel Sounds, Soft Extremity: Normal Inspection, Pedal Edema Neurologic/Psychiatric: Other (sedated) Skin: Normal Color, Warm/Dry Results/Procedures Lab Laboratory Tests 06/13/20 03:26 Patient resulted labs reviewed. Imaging: Reviewed Imaging Report Assessment/Plan Assessment and Plan Assess & Plan/Chief Complaint Acute respiratory distress syndrome due to COVID-19 Poor prognosis Intubated 05/27 Continue ventilator, TeleICU managing, high requirements PEEP and FiO2 Palliative care consulted, appreciate assistance Family planning to transition to comfort measures and compassionate extubation tomorrow Atrial fibrillation with RVR Cardiology consulted, appreciate recs Therapeutic Lovenox Transition to oral Cardizem Steroid induced hyperglycemia Well controlled HTN Continue antihypertensives DVT prophylaxis: already receiving therapeutic dose Lovenox PNA, resolved Critical Care Critically Ill Patient Diagnosis/Problems Diagnosis/Problems (1) Acute respiratory distress syndrome (ARDS) due to COVID-19 virus Status: Acute (2) Endotracheally intubated Status: Acute (3) Acute respiratory failure due to COVID-19 Status: Acute (4) PNA (pneumonia) Status: Resolved Resolution Date/Time: 06/08/20 @ 13:28 (5) HTN (hypertension) Status: Chronic (6) Hyperglycemia Status: Acute (7) Lactic acidosis Status: Resolved Resolution Date/Time: 06/08/20 @ 13:28 (8) Atrial fibrillation with RVR Status: Acute (9) Poor prognosis Status: Acute JOSHUA LEAHY MD Jun 13, 2020 11:25
[2020-06-13] MEDS: LACTATED RINGERS 1,000 ML IV SCH (16:47)
[2020-06-13] MEDS: SENNA W/DOCUSATE (SENOKOT S) TABLET PO PRN (20:52)
[2020-06-14] VITALS (18 sets, daily range): BP systolic 95–152; BP diastolic 53–97
[2020-06-14] MEDS: inSUlin ASPART (NovoLOG) 1 UNIT/0.01 ML (CHARGE PER UNIT) SQ SCH ×3 (00:16→11:26)
[2020-06-14] MEDS: METOCLOPRAMIDE INJ 10 MG/2 ML (REGLAN) IVP SCH ×3 (00:16→11:28)
[2020-06-14] MEDS: RT-ALBUTEROL INHALER HFA (VENTOLIN HFA) 18 GM IH SCH ×3 (02:13→10:14)
[2020-06-14] MEDS: PROPOFOL DRIP (ICU) 100 ML IV SCH ×3 (02:15→10:41)
[2020-06-14] MEDS: fentaNYL DRIP PRE-MIX 250 ML IV SCH ×4 (02:15→13:26)
[2020-06-14 02:31] LABS: BASOPHILS % (AUTO) 0 % (0-10); EOSINOPHILS # (AUTO) 0.4 10^3/uL (0.0-0.3); EOSINOPHILS % (AUTO) 6 % (0-10); HEMATOCRIT 32 % (40-54); HEMOGLOBIN 10.1 g/dL (13.3-17.7); LYMPHOCYTES # (AUTO) 0.9 10^3/uL (1.0-4.0); LYMPHOCYTES % (AUTO) 13 % (12-44); MEAN CORPUSCULAR HEMOGLOBIN 28 pg (25-34); MEAN CORPUSCULAR HGB CONC 32 g/dL (32-36); MEAN CORPUSCULAR VOLUME 89 fL (80-99); MONOCYTES # (AUTO) 0.3 10^3/uL (0.0-1.0); MONOCYTES % (AUTO) 5 % (0-12); NEUTROPHILS # (AUTO) 4.9 10^3/uL (1.8-7.8); NEUTROPHILS % (AUTO) 73 % (42-75); PLATELET COUNT 203 10^3/uL (130-400); WHITE BLOOD COUNT 6.7 10^3/uL (4.3-11.0)
[2020-06-14 02:40] LABS: CHLORIDE 93 MMOL/L (98-107); POTASSIUM 3.5 MMOL/L (3.6-5.0); SODIUM 139 MMOL/L (135-145)
[2020-06-14 02:42] LABS: CALCIUM 7.8 MG/DL (8.5-10.1); GLUCOSE 112 MG/DL (70-105)
[2020-06-14 02:44] LABS: CARBON DIOXIDE 36 MMOL/L (21-32)
[2020-06-14 02:46] LABS: CREATININE SERUM 0.59 MG/DL (0.60-1.30); GFR ESTIMATED > 60; PHOSPHORUS 3.1 MG/DL (2.3-4.7)
[2020-06-14 02:47] LABS: BUN/CREATININE RATIO 31
[2020-06-14 02:48] LABS: MAGNESIUM 1.8 MG/DL (1.6-2.4)
[2020-06-14] MEDS: POTASSIUM CL 10MEQ/50ML IVPB 50 ML IV SCH ×3 (05:10→05:45)
[2020-06-14] MEDS: MAGNESIUM 1 GM/100 ML IVPB 100 ML IV SCH (05:10)
[2020-06-14] MEDS: FUROSEMIDE 40 MG/4 ML INJ (LASIX) IVP SCH (05:10)
[2020-06-14] MEDS: KCL 20 MEQ TAB (K-DUR) PO SCH (05:10)
[2020-06-14] MEDS: MIDAZOLAM DRIP PRE-MIX 100 ML IV SCH (05:44)
[2020-06-14] MEDS: ENOXAPARIN 100 MG/1 ML (LOVENOX) SYR SC SCH (07:46)
[2020-06-14] MEDS: meTOprolol TARTRATE 25 MG (LOPRESSOR) TABLET PO SCH (07:47)
[2020-06-14] MEDS: DOCUSATE SODIUM 10 MG/ML 10 ML UDC (COLACE) PO SCH (07:47)
[2020-06-14] MEDS: MICONAZOLE 2% POWDER (DESENEX AF) 90 GM TOP SCH (07:47)
[2020-06-14] MEDS: PANTOPRAZOLE 40 MG (PROTONIX) VIAL IV SCH (07:47)
[2020-06-14] MEDS: polyethylene glycoL POWDER 17 GM (MIRALAX) PACK NG SCH (07:47)
[2020-06-14] MEDS ORDERED: GLYCOPYRROLATE 0.2 MG/ML (ROBINUL) 2 ML VIAL IV PRN (14:30)
[2020-06-14] MEDS ORDERED: BISACODYL 10 MG SUPP (DULCOLAX) PR PRN (14:30)
[2020-06-14] MEDS ORDERED: ATROPINE 1% OPHTHALMIC SOLN 5 ML SL PRN (14:30)
[2020-06-14] MEDS ORDERED: morphine INJ 4 MG/ML 1 ML (VIAL/SYRINGE) IV PRN (14:30)
[2020-06-14] MEDS ORDERED: RT-ALBUTEROL/IPRATROPIUM 3 ML (DUONEB) VIAL INH PRN (14:30)
[2020-06-14] MEDS ORDERED: SALIVA STIMULANT MOUTH SPRAY (BIOTENE) 1.5 OZ MM PRN (14:30)
[2020-06-14] MEDS ORDERED: PROMETHAZINE INJ 25 MG/ML (PHENERGAN) AMP IVP PRN (14:30)
[2020-06-14] MEDS ORDERED: ACETAMINOPHEN 650 MG SUPP (TYLENOL) PR PRN (14:30)
[2020-06-14] MEDS ORDERED: ARTIFICAL TEARS 0.4 ML UNIT DOSE (REFRESH PLUS) OU PRN (14:30)
[2020-06-14] MEDS ORDERED: ONDANSETRON 4 MG/2 ML (SDV) Z0FRAN IVP PRN (14:30)
[2020-06-14] MEDS ORDERED: LORazepam INJ 2 MG/ML (ATIVAN) VIAL IVP PRN (14:30)
== END 2020-06-14 18:09 | disposition expired | DRG 207 ==
LOC: EDUNIT# 13:36 → ER 13:39 → 4TH 14:56 → OBSVTOIN 05-17 11:35 → ICU 05-18 11:32
PROVIDERS: ADMIT Internal Medicine; ATTEND Internal Medicine
PROC: XW033E5 Introduction of Remdesivir Anti-infective into Peripheral Vein, Percutaneous Approach, New Technology Group 5 (ICD-10-PCS; principal; 2020-05-17)
PROC: XW13325 Transfusion of Convalescent Plasma (Nonautologous) into Peripheral Vein, Percutaneous Approach, New Technology Group 5 (ICD-10-PCS; 2020-05-17)
PROC: 5A09357 Assistance with Respiratory Ventilation, Less than 24 Consecutive Hours, Continuous Positive Airway Pressure (ICD-10-PCS; 2020-05-17)
PROC: 5A1955Z Respiratory Ventilation, Greater than 96 Consecutive Hours (ICD-10-PCS; 2020-05-27)
PROC: 0BH17EZ Insertion of Endotracheal Airway into Trachea, Via Natural or Artificial Opening (ICD-10-PCS; 2020-05-27)
DX: U07.1 COVID-19 (principal); J12.82 Pneumonia due to coronavirus disease 2019; J80 Acute respiratory distress syndrome; E87.2 Acidosis; I48.92 Unspecified atrial flutter; I10 Essential (primary) hypertension; I48.91 Unspecified atrial fibrillation; T38.0X5A Adverse effect of glucocorticoids and synthetic analogues, initial encounter; R73.9 Hyperglycemia, unspecified; I95.9 Hypotension, unspecified; Z66 Do not resuscitate; Z51.5 Encounter for palliative care; E11.9 Type 2 diabetes mellitus without complications
CPT/HCPCS: 36410; 36415; 36569; 36600; 71045; 71250; 76937; 80048; 80053; 81000; 82805; 82962; 83036; 83605; 83615; 83735; 83880; 84100; 84145; 84478; 85007; 85025; 85027; 85379; 85610; 85730; 86141; 86900; 86901; 87040; 87070; 87081; 87088; 87106; 87205; 87635; 87804; 93005; 94002; 94003; 94640; 94660; 94664; 94760; 94799; 96361; 96365; 96375